=== PATIENT | male | born 1980 | race Two or more races ===

== ENCOUNTER 2020-07-27 19:53 | Emergency (ER) | payer MEDICARE, SELFPAY ==
--- NOTE | 2020-07-27 | XR_ITS ---
EXAMINATION: XR CHEST CLINICAL INFORMATION: Shortness of breath. COVID exposure COMPARISON: 02/10/2012 TECHNIQUE: Frontal view of the chest was obtained. FINDINGS: Diffuse interstitial prominence. No focal consolidation or mass. Cardiac silhouette is enlarged, likely accentuated by AP portable technique XR/XR chest 1V IMPRESSION: There is diffuse interstitial prominence, new from prior study. This is nonspecific but viral pneumonitis could give this appearance.
[2020-07-27 20:06] VITALS: BP 181/98; PULSE 73; RESP 14; TEMP 37.1; O2SAT 100; BMI 35.7
--- NOTE | 2020-07-27 20:23 | ED_ITS ---
HPI - URI/Sore Throat General Chief Complaint: Dyspnea Stated Complaint: FLU LIKE Time Seen by Provider: 07/27/20 20:18 Source: patient Mode of arrival: ambulatory Limitations: no limitations History of Present Illness HPI Narrative: 40-year-old male with past medical history of anxiety, hypertension, anxiety, and obesity presents with upper respiratory symptoms consistent with COVID-19. He has had several COVID-19 positive contacts. Patient is requesting COVID-19 testing at this time. MD elicited complaint: cough, sore throat, nasal congestion and sinus pain Onset (ago): day(s) (3) Consistency: constant Severity: moderate Description of mucous: clear and watery Able to tolerate fluids by mouth: Yes Relieving factors: nothing Context: sick contacts Associated symptoms: headache, rhinorrhea, nasal congestion, sore throat and cough Treatments prior to arrival: none Related Data Previous Rx's Medication Instructions Recorded azithromycin 250 mg PO DAILY 4 Days #4 tab 07/27/20 dexamethasone 6 mg PO DAILY 9 Days #9 tab 07/27/20 Allergies Allergy/AdvReac Type Severity Reaction Status Date / Time aspirin [ASPIRIN] Allergy Unknown ITCHY, Verified 07/27/20 20:08 itchy/HIVES Review of Systems Review of Systems: Constitutional: positive Fever, positive Chills, positive fatigue, positive Malaise ENT/Mouth: positive sore throat, positive runny nose Eyes: No Discharge Cardiovascular: No Chest Pain, No SOB Respiratory: No Cough, No Sputum, No Wheezing, No Smoke Exposure, No Dyspnea Gastrointestinal: No Nausea, No Vomiting, No Diarrhea Genitourinary: no irregular bleeding, No Dysuria, No Urinary Frequency, No Hematuria, No Urinary Incontinence, No Urgency, No Flank Pain, Musculoskeletal: positive Myalgia Skin: No rash Neuro: No Headache Yes all other systems are reviewed and are negative PMFSH Past Medical History Attestation statement: The following information was validated with the patient. Medical History (Updated 07/27/20 @ 22:22 by Rhona Aguiar NP) Anxiety Asthma HTN (hypertension) Seizure Social History Social History Alcohol intake: never Smoking Status: Unknown if ever smoked Use of substances other than those prescribed or required for medical reasons: No Advance Directives: No Advance Directives Information Provided: Yes Physical Exam Vital Signs: Vital Signs: Last Vital Signs Temp 98.7 F 07/27/20 20:06 Pulse 73 07/27/20 20:06 Resp 14 07/27/20 20:06 BP 181/98 H 07/27/20 20:06 Pulse Ox 100 07/27/20 20:06 Body Mass Index 35.7 Appearance: Alert. Oriented X3. Mild distress. Eyes: Pupils equal, round and reactive to light. ENT: Pharynx normal. Neck: Normal inspection. Neck supple. CVS: Normal heart rate and rhythm. Pulses normal. Respiratory: No respiratory distress. Breath sounds normal. Abdomen: Soft and nontender. Skin: Skin warm and dry. Normal skin color. Normal skin turgor. Extremities: No lower extremity edema. Neuro: No motor deficit. No sensory deficit. Course Course Course Narrative: 40-year-old male presents with positive COVID-19 contacts history of asthma and hypertension. Plan of care is for COVID-19 testing and x- ray. Patient would like to wait for his results. Patient's COVID test is negative however x-ray is indicative of COVID-19 infection. Detailed description of results given to patient, he does understand that he must treat himself his COVID-19 positive. As he does have asthma, obesity, hypertension and seizure disorder we will order dexamethasone, azithromycin to prevent bacterial, and albuterol. Patient verbalized understanding of and agrees to plan of care discharge home. MDM - URI/Sore Throat MDM Narrative Medical decision making narrative: COVID-19 Differential Diagnosis Differential diagnosis: Likely upper respiratory infection, sinusitis, viral infection and influenza Medical Records Attestation: I reviewed the patient's medical records. Lab Data Attestation: I reviewed the patient's lab results. Labs: Lab Results 07/27/20 Range/Units 20:21 Coronavirus (PCR) NEGATIVE (Negative) Influenza Type A (PCR) NEGATIVE (Negative) Influenza Type B (PCR) NEGATIVE (Negative) RSV RNA Qual (PCR) NEGATIVE (Negative) Imaging Data Chest x-ray: Attestation: I personally reviewed and interpreted this imaging study as follows: Radiologist's impression: EXAMINATION: XR CHEST CLINICAL INFORMATION: Shortness of breath. COVID exposure COMPARISON: 02/10/2012 TECHNIQUE: Frontal view of the chest was obtained. FINDINGS: Diffuse interstitial prominence. No focal consolidation or mass. Cardiac silhouette is enlarged, likely accentuated by AP portable technique XR/XR chest 1V IMPRESSION: There is diffuse interstitial prominence, new from prior study. This is nonspecific but viral pneumonitis could give this appearance. Discharge Plan Discharge Clinical Impression: COVID-19 Patient Disposition: Home, Self-Care Instructions: Upper Respiratory Infection (ED), Viral Syndrome (ED), COVID-19 (Coronavirus Disease 2019) (ED) Additional Instructions: You were evaluated for symptoms consistent COVID-19. Your test for COVID, influenza and RSV are negative. That being said, your chest x-ray indicates a positive COVID-19 chest. You have had multiple COVID-19 positive contacts and you are symptomatic. Please consider yourself positive for COVID-19. You were evaluated for symptoms consistent with COVID-19 and or COVID-19 positive exposure. Please maintain social isolation per State and Federal guidelines. Is your responsibility to maintain these guidelines. Please use dexamethasone daily for the next 9 days. He received 1st dose in the emergency department. Please take azithromycin 250 mg for the next 4 days. You received your 1st dose in the emergency department. Please drink plenty of fluids. Thank you for choosing this emergency department for evaluation. Please follow-up with primary care physician as needed. Return to the emergency department for any new, concerning, or worsening symptoms. Prescriptions: New dexamethasone 6 mg tablet 6 mg PO DAILY 9 Days Qty: 9 RF: 0 azithromycin 250 mg tablet 250 mg PO DAILY 4 Days Qty: 4 RF: 0 Interventions: ED Discharge Assessment Last Done: 07/27/20 22:48 Discharge Date/Time: 07/27/20 22:49
[2020-07-27 22:00] LABS: Influenza A PCR NEGATIVE (Negative); Influenza B PCR NEGATIVE (Negative); Resp Syncy Virus RNA Qual PCR NEGATIVE (Negative); SARS COV2 PCR INHOUSE NEGATIVE (Negative)
[2020-07-27] MEDS: Azithromycin 500 MG TABLET PO (22:32)
[2020-07-27] MEDS: dexAMETHasone 6 MG TABLET PO (22:32)
[2020-07-27] MEDS: Albuterol Sulfate 90 MCG 8 GM INHALER 2 PUFF INHALE (22:32)
== END 2020-07-27 22:49 | disposition home or self-care (01) ==
PROVIDERS: Emergency Provider Emergency Medicine
DX: J06.9 Acute upper respiratory infection, unspecified (principal); Z20.822 Contact with and (suspected) exposure to COVID-19; I10 Essential (primary) hypertension; J45.909 Unspecified asthma, uncomplicated
CPT/HCPCS: 0241U; 36415; 71045; 87071; 87880; 99284; J8540

== ENCOUNTER 2021-06-14 07:40 | Emergency (ER) | payer MEDICARE, SELFPAY ==
[2021-06-14 08:20] VITALS: BP 141/93; PULSE 70; RESP 18; TEMP 36.7; O2SAT 98; BMI 31.9
--- NOTE | 2021-06-14 08:24 | ED_ITS ---
HPI - Ear Problem General Stated complaint: ear pain Time Seen by Provider: 06/14/21 08:24 Source: patient Mode of arrival: ambulatory Limitations: no limitations History of Present Illness HPI Narrative: Patient with ear pain after cleaning ear. Complaint: ear pain Location: right ear Duration: constant Severity: mild Relieving factors: nothing Exacerbating factors: nothing Treatment prior to arrival: none Related Data Previous Rx's Medication Instructions Recorded azithromycin 250 mg tablet 250 mg PO DAILY 4 Days #4 tab 07/27/20 dexamethasone 6 mg tablet 6 mg PO DAILY 9 Days #9 tab 07/27/20 fluticasone propionate 50 1 spray INTRANASAL DAILY #16 g 06/14/21 mcg/actuation nasal spray,suspension (Flonase Allergy Relief) Allergies Allergy/AdvReac Type Severity Reaction Status Date / Time aspirin [ASPIRIN] Allergy Unknown ITCHY, Verified 07/27/20 20:08 itchy/HIVES Review of Systems Constitutional: Constitutional: Reports no additional constitutional complaints Eyes: Eyes: Reports no additional eye complaints ENT: Denies dizziness Cardiovascular: Cardiovascular: Reports no additional cardiovascular complaints Respiratory: Respiratory: Reports as per HPI Gastrointestinal: Gastrointestinal: Reports no additional gastrointestinal complaints Musculoskeletal: Musculoskeletal: Reports no additional musculoskeletal co mplaints Integumentary/Breasts: Skin/Breast: Denies rash Neurologic: Reports system reviewed and no additional complaints, except as documented, Denies dizziness and Denies Sensory deficit (Neuro) Psychiatric: Psychiatric: Denies anxiety PMFSH Past Medical History Medical History Anxiety Asthma HTN (hypertension) Seizure Social History Social History Alcohol intake: never Advance Directives: No Advance Directives Information Provided: No Physical Exam Const: General: healthy appearing Nutritional Appearance: average body habitus Orientation/consciousness: oriented to person and patient oriented x3 Limitations: no limitations HENMT: Other: left TM is normal, right TM with effusion, no erthema Head: Yes normal to inspection General nose exam: Normal external nose present Mouth: Normal oral and palatal mucosa present and oropharynx normal Throat: Yes posterior oropharynx normal Eyes: General: appearance normal, both eyes and all related structures Neck: Other: supple Neck: Yes normal visual inspection Chest: Chest palpation & inspection: normal inspection of the chest Resp: Auscultation: clear to auscultation bilaterally Cardio: Jugular venous distension: no JVD Rate: regular rate Rhythm: regular rhythm Heart sounds: S1 normal heart sound present and S2 normal heart sound present GI: Inspection: Yes normal to inspection Palpation (GI): Soft to palpation, nontender and No hepatosplenomegaly present Auscultation: normal bowel sounds : General: Yes no CVA tenderness Back/Spine/Pelvis: Back: no CVA tenderness Skin: General skin exam: no rashes or lesions noted Neuro: General: oriented to person and patient oriented x3 Cranial nerves: Yes CN's II-XII intact bilaterally Motor exam (neuro): 5/5 motor strength present throughout Sensory Exam: No Sensory deficit (Neuro) Extrem: General: Yes normal to inspection Psych: Appearance: grossly normal Course Course Course Narrative: Impression is right TM effusion. Patient with nasal congestion will place on flonase. Discharge Plan Discharge Clinical Impression: Abnormal tympanic membrane of right ear Patient Disposition: Home, Self-Care Prescriptions: New fluticasone propionate [Flonase Allergy Relief] 50 mcg/actuation spray,suspension 1 spray intranasal DAILY Qty: 16 RF: 0 No Action dexamethasone 6 mg tablet 6 mg PO DAILY 9 Days Qty: 9 RF: 0 azithromycin 250 mg tablet 250 mg PO DAILY 4 Days Qty: 4 RF: 0
== END 2021-06-14 08:50 | disposition home or self-care (01) ==
PROVIDERS: Emergency Provider Emergency Medicine; PCP Internal Medicine
DX: H73.91 Unspecified disorder of tympanic membrane, right ear (principal); I10 Essential (primary) hypertension; J45.909 Unspecified asthma, uncomplicated
CPT/HCPCS: 99283

== ENCOUNTER 2022-10-20 10:13 | Emergency (ER) | payer MEDICARE, SELFPAY ==
[2022-10-20 10:16] VITALS: BP 146/94; PULSE 80; RESP 18; TEMP 36.8; O2SAT 98; BMI 38.0
--- NOTE | 2022-10-20 11:10 | ED_ITS ---
HPI - General Adult General Chief complaint: General Medical Stated complaint: muscle spasms Time Seen by Provider: 10/20/22 11:08 Source: patient Mode of arrival: ambulatory Limitations: no limitations History of Present Illness HPI narrative: Patient is a 42 year old assigned male at with a history of depression presenting to the emergency department today with right sided neck and shoulder muscle spasm after laying in bed for 4-5 days due to feeling depressed. Patient states that he has tried Tylenol and massage with minimal relieve. Patient denies any dizziness, lightheadedness, abdominal pain, nausea, vomiting, fever, chills, blurry vision, double vision, loss of vision, chest pain, difficulty breathing, shortness of breath, back pain, night sweats, pain with urination, increased urinary frequency, increased urinary urgency, blood in his urine or stool, syncope or a near syncopal episode, recent trauma or falls, bowel incontinence, bladder incontinence, bowel retention, bladder retention, or any other complaints at this time. Onset (ago): day(s) (4) Location: neck and left Severity scale (1-10): 2 Quality: aching Pain Consistency: constant Relieving factors: immobilization Exacerbating factors: movement Associated symptoms: denies other symptoms Treatments prior to arrival: other (Tylenol) Related Data Previous Rx's Medication Instructions Recorded azithromycin 250 mg tablet 250 mg PO DAILY 4 days #4 tabs 07/27/20 dexamethasone 6 mg tablet 6 mg PO DAILY 9 days #9 tabs 07/27/20 fluticasone propionate 50 1 spray intranasal DAILY #16 grams 06/14/21 mcg/actuation nasal spray,suspension (Flonase Allergy Relief) cyclobenzaprine 5 mg tablet 5 mg PO TID PRN muscle spasm 7 10/20/22 days #21 tabs Allergies Allergy/AdvReac Type Severity Reaction Status Date / Time aspirin [ASPIRIN] Allergy Unknown ITCHY, Verified 07/27/20 20:08 itchy/HIVES Review of Systems Review of Systems: Yes all other systems are reviewed and are negative Constitutional: Constitutional: Reports as per HPI Eyes: Eyes: Reports no additional eye complaints ENT: Reports system reviewed and no additional complaints, except as documented, Denies neck mass and Reports neck pain Cardiovascular: Cardiovascular: Reports no additional cardiovascular complaints, Denies dyspnea on exertion and Denies orthopnea Respiratory: Respiratory: Reports no additional respiratory complaints and Denies dyspnea on exertion Gastrointestinal: Gastrointestinal: Reports no additional gastrointestinal complaints Genitourinary: Genitourinary: Reports no additional male genitourinary complaints, Denies hematuria, Denies oliguria, Denies difficulty urinating, Den ies dysuria, Denies urinary frequency, Denies urinary hesitancy, Denies urinary incontinence and Denies urinary urgency Musculoskeletal: Musculoskeletal: Reports as per HPI and Reports neck pain Neurologic: Reports system reviewed and no additional complaints, except as documented Psychiatric: Psychiatric: Reports no additional psychiatric complaints Endocrine: Endocrine: Reports no additional endocrine complaints Hematologic/Lymphatic: Hematologic/Lymphatic: Reports no additional hematologic/lymphatic complaints Allergic/Immunologic: Allergic/Immunologic: Reports no additional allergic/immunologic complaints [facility] Past Medical History Attestation statement: The following information was validated with the patient. Source: old records reviewed and nursing notes reviewed Medical History Anxiety Asthma HTN (hypertension) Seizure Social History Social History Alcohol intake: never Advance Directives: No Advance Directives Information Provided: No Physical Exam ED Vital Signs: Vital Signs - 24 hr 10/20/22 10:16 Temperature 98.3 F Pulse Rate 80 Respiratory Rate 18 Blood Pressure 146/94 H Pulse Oximetry 98 Oxygen Delivery Method Room Air BMI result Body Mass Index 38.0 Const General: cooperative, healthy appearing and no acute distress Nutritional Appearance: well nourished Orientation/consciousness: oriented to person, oriented to place, oriented to time and patient oriented x3 Limitations: no limitations [facility] Head: Yes normal to inspection Ears: hearing grossly normal bilaterally General nose exam: Normal external nose present Face and sinus: Yes normal facial exam Mouth: Normal oral and palatal mucosa present, no drooling and no muffled voice Eyes General: appearance normal, both eyes and all related structures Alignment and Position: alignment abnormal right exotropia Periorbital: periorbital findings normal Eyelids: Yes eyelids normal Conjunctivae: conjunctivae normal Pupils: Equal, round and reactive pupils present EOM: EOMs intact bilaterally Neck Neck: Yes normal visual inspection and No full ROM (limited lateral ROM due to pain) Chest Chest palpation & inspection: normal inspection of the chest Resp Effort & Inspection: normal respiratory effort and able to speak in complete sentences Auscultation: clear to auscultation bilaterally Cardio Rate: regular rate Rhythm: regular rhythm GI Inspection: Yes normal to inspection General: Yes no CVA tenderness Back/Spine/Pelvis Back: no CVA tenderness Cervical Spine: normal cervical lordosis Thoracic/Lumbar Spine: thoracic and lumbar spine normal to inspection Neuro General: oriented to person, oriented to place, oriented to time and patient oriented x3 Cranial nerves: Yes Equal, round and reactive pupils present Cognition (Neuro): normal cognition Motor exam (neuro): 5/5 motor strength present throughout Sensory Exam: Normal double simultaneous stimulation for sensation Coordination: [id number] test normal Extrem General: Yes normal to inspection, Yes full ROM and Yes capillary refill normal Right upper extremity: normal to inspection, edema, no joint enlargement and shoulder/upper arm Details: abnormal ROM Details: pain with active ROM Details: in ABduction and in extension; ROM limited (Right shoulder limited ROM due to pain) Psych Appearance: grossly normal Mental Status: mental status grossly normal Affect: normal affect Attitude: cooperative Thought process: Normal thought process present Thought content: Normal thought content present Insight: Good insight present (Psych) Medical Decision Making Medical Decision Making MDM Narrative: Patient is a 42 year old assigned male at with a history of depression presenting to the emergency department today with right sided neck pain. Patient's physical exam showed limited neck ROM secondary to pain. Patient adamantly denied any thoughts of harming himself or others. Patient declined any psychiatric services. I explained my physical exam findings to the patient. I answered all questions asked by the patient. Patient received PO Flexeril which he stated helped his symptoms significantly. I stressed the importance of the patient taking his medication as prescribed. I stressed the importance of the patient following up with his primary care provider. I stressed the importance of the patient returning to the emergency department immediately if his symptoms were to worsen or if he were to develop any dizziness, shortness of breath, difficulty breathing, chest pain, blurry vision, loss of vision, nausea, vomiting, abdominal pain, fever, chills, back pain, or any other complaints. Patient verbalized agreement and understanding with this treatment plan and discharge. Differential Diagnosis Differential Diagnoses: The differential diagnosis associated with the presentation includes neck pain, cervical radiculopathy Discharge Plan Discharge Clinical Impression: Cervical radiculopathy, Muscle spasm Patient Disposition: Home, Self-Care Instructions: Cervical Radiculopathy (ED), Muscle Spasm (ED) Additional Instructions: Follow up with your primary care provider. Return to the emergency department immediately if your symptoms worsen or if you develop any dizziness, shortness of breath, difficulty breathing, chest pain, blurry vision, loss of vision, nausea, vomiting, abdominal pain, fever, chills, back pain, or any other complaints. Prescriptions: New cyclobenzaprine 5 mg tablet 5 mg PO TID PRN (Reason: muscle spasm) 7 Days Qty: 21 0RF No Action dexamethasone 6 mg tablet 6 mg PO DAILY 9 Days Qty: 9 0RF azithromycin 250 mg tablet 250 mg PO DAILY 4 Days Qty: 4 0RF fluticasone propionate [Flonase Allergy Relief] 50 mcg/actuation spray,suspens ion 1 spray intranasal DAILY Qty: 16 0RF Rx Instructions: administer into each nostril Referrals: Joyce Markham FNP [Primary Care Provider] - Print Language: Kiswahili
[2022-10-20] MEDS: Cyclobenzaprine HCl 5 MG TABLET PO (11:54)
== END 2022-10-20 11:59 | disposition home or self-care (01) ==
PROVIDERS: Emergency Provider Emergency Medicine; PCP Nurse Practitioner Family
DX: M54.12 Radiculopathy, cervical region (principal); M62.838 Other muscle spasm
CPT/HCPCS: 99283

== ENCOUNTER 2022-11-24 08:50 | Outpatient (REF) | payer OTHER, SELFPAY ==
[2022-11-24 09:06] LABS: MANUAL DIFF FLAG NO
[2022-11-24 09:28] LABS: Basophils Absolute Auto 0.1 X10*3/uL (0.0-0.2); Basophils Percent Auto 0.7 % (0-2); Eosinophils Absolute Auto 0.3 X10*3/uL (0.0-0.4); Eosinophils Percent Auto 4.1 % (0-4); Hematocrit 43.8 % (42.0-52.0); Hemoglobin 14.5 g/dl (14.0-18.0); Imm Gran Abs Auto 0.02 X10*3/uL (0.00-0.03); Imm Gran Pct Auto 0.3 % (0.0-0.4); Lymphocytes Percent Auto 29.5 % (20-40); Mean Corpuscular HGB Conc 33.1 g/dl (31.0-36.0); Mean Corpuscular Hemoglobin 26.2 pg (27.0-33.0); Mean Corpuscular Volume 79.2 fL (80.0-98.0); Mean Platelet Volume 9.7 fL (9.4-12.4); Monocytes Absolute Auto 0.6 X10*3/uL (0.1-1.2); Monocytes Percent Auto 8.8 % (2-11); Neutrophils Absolute Auto 3.9 x10*3/uL (2.0-8.3); Neutrophils Percent Auto 56.6 % (45-73); Platelet Count 252 X10*3/uL (160-400); Red Blood Count 5.53 X10*6/uL (4.60-5.80); Red Cell Distribution Width 12.9 % (11.0-16.0); White Blood Count 6.9 X10*3/uL (4.8-10.8)
[2022-11-24 10:06] LABS: Alanine Aminotransferase 39 U/L (0-40); Albumin Level 4.3 g/dL (3.5-5.0); Alkaline Phosphatase 95 U/L (39-117); Anion Gap 10 (12-20); Aspartate Amino Transferase 22 U/L (5-37); Bilirubin Total 0.4 mg/dL (0.0-1.0); Blood Urea Nitrogen 16 mg/dL (9-16); Calcium 8.8 mg/dL (8.4-10.2); Carbon Dioxide 27 mmol/L (22-29); Chloride 100 mmol/L (96-108); Cholesterol 202 mg/dL; Estimated Glomerular Filt Rate > 60; Glucose Fasting 305 mg/dL (60-99); HDL Cholesterol 35 mg/dL; LDL Cholesterol Calculated 101 mg/dl; Potassium 4.3 mmol/L (3.3-5.1); Sodium 133 mmol/L (135-145); Total Protein 7.2 g/dL (6.5-8.0); Triglycerides 333 mg/dL
[2022-11-24 10:35] LABS: Folate 7.9 ng/mL (> or = 4.0); TSH reflex Free T4 1.42 uIU/mL (0.32-4.0); Vitamin B12 999 pg/mL (200-900); Vitamin D 25-OH Total 27.6 ng/mL (>30)
== END 2022-11-24 08:51 | disposition home or self-care (01) ==
LOC: HO.LAB 08:50
PROVIDERS: Visit Provider Nurse Practitioner Family
DX: F32.A Depression, unspecified (principal); I10 Essential (primary) hypertension; E87.1 Hypo-osmolality and hyponatremia; E55.9 Vitamin D deficiency, unspecified; R73.01 Impaired fasting glucose
CPT/HCPCS: 36415; 80053; 80061; 82306; 82607; 82746; 84443; 85025

== ENCOUNTER → 2022-12-18 07:20 | Outpatient (BNVA) | payer OTHER, SELFPAY | PROVIDERS: PCP Nurse Practitioner Family; Referring Provider Nurse Practitioner Family; Visit Provider Physician Assistant | DX: K92.1 Melena (principal); K59.09 Other constipation; R12 Heartburn; R14.0 Abdominal distension (gaseous) | CPT/HCPCS: 99202 ==

== ENCOUNTER 2022-12-18 09:36 | Outpatient (REF) | payer OTHER, SELFPAY ==
[2022-12-19 12:26] LABS: H Pylori Breath Test Positive (Negative)
== END 2022-12-18 09:37 | disposition home or self-care (01) ==
LOC: HO.LNP 09:36
PROVIDERS: Visit Provider Physician Assistant
DX: A04.8 Other specified bacterial intestinal infections (principal)
CPT/HCPCS: 83013

== ENCOUNTER 2023-01-20 16:02 | Outpatient (AMB) | payer MEDICARE, SELFPAY ==
[2023-01-20 16:04] VITALS: BP 140/98; PULSE 84; O2SAT 98; BMI 37.2
--- NOTE | 2023-01-20 16:04 | MHC.PC.OV ---
Vital Signs 01/20/23 16:04 01/20/23 16:46 Height 5 ft 8 in Weight 245 lb BMI 37.2 BP 140/98 H 144/96 H Blood Pressure Location Lt brachial Lt brachial Position Sitting Sitting Pulse 84 Pulse Source Pulse Oximeter Temp Source Skin Pulse Oximetry (%) 98 Oxygen Delivery Method Room Air Intake Visit Reasons: Annual Exam Intake Note: Patient is here today for a physical. Invisible Braces Orthodontist Required: No Allergies aspirin [ASPIRIN] Allergy (Unknown, Verified 01/20/23 16:28) ITCHY, itchy/HIVES Medication List - Last Reconciled 01/20/23 by LUCY Fontanez amoxicillin 500 mg PO QID 14 days amoxicillin 250 mg PO QID 14 days bisacodyl (Dulcolax (bisacodyl)) 20 mg (4 x 5 mg) PO ONCE 1 day buspirone 0 mg PO DAILY cholecalciferol (vitamin D3) 25 mcg PO DAILY clonazepam 0.5 mg PO BID PRN clonidine HCl 0.1 mg PO BEDTIME docusate sodium (Colace) 200 mg (2 x 100 mg) PO BEDTIME esomeprazole magnesium (Nexium) 40 mg PO TID 14 days hydrocortisone 2.5% (Proctosol HC) 1 appl [place] BEDTIME PRN methylcellulose (laxative) (Citrucel) 500 mg PO BID omeprazole 20 mg PO DAILY polyethylene glycol 3350 (Miralax) 238 grams PO ONCE 1 day polyethylene glycol 3350 (Miralax) 17 grams PO DAILY 30 days sertraline 200 mg PO BEDTIME simethicone (Gas Relief (simethicone)) 125 mg PO TID-QID PRN Tobacco use date assessed: 01/20/23 Dental Screening Dental Screen Date: 01/20/23 Did you have a dental visit in the last 12 months?: Yes Did you have a dental problem in the last 6 months where you did not have access to dental care?: No Was dental information given to patient?: Patient has dentist HPI Annual Exam HPI Details Patient is a 42-year-old male who presents today for physical exam. Medical history significant for asthma, hypertension, depression and anxiety-followed by Psychiatry and therapist at [facility], seizures-reports last seizure 1.5 years ago - was on medication in the past-was seen by [facility] in the past - has upcoming appointment with [facility].? Patient was seen by [facility] tested positive for H pylori-currently on treatment - will be having upper endoscopy and colonoscopy. He reports normal eye exam 01/2023. Patient reports that couple months ago he was in the Gym and he felt dizzy with small pinch in his chest which resolved, he does have order for EKG, patient was encouraged to complete his EKG. He denies shortness of breath or chest pain in the office today. In addition, patient reports abdominal lump with intermittent pain. Recent blood work results reviewed with the patient. ? PFSH Medical History Anxiety Asthma COVID-19 Encounter to establish care HTN (hypertension) Seizure Surgical History No pertinent past surgical history Family History Maternal Grandfather Prostate cancer Colon cancer Father Seizures History of heart artery stent Mother Diabetes Hypertension Social History Alcohol intake: never Patient Tobacco Use Status: Former Tobacco user Years Smoked: 10 yrs, quit 2020 service: No Current occupational status: unemployed Cognitive needs: No Hearing needs: No Vision needs: No Questionnaire PHQ-9 Over the last 2 weeks, how often have you been bothered by any of the following problems? 1. Little interest or pleasure in doing things: several days 2. Feeling down, depressed, or hopeless: more than half the days 3. Trouble falling or staying asleep, or sleeping too much: nearly every day 4. Feeling tired or having little energy: several days 5. Poor appetite or overeating: nearly every day 6. Feeling bad about yourself - or that you are a failure or have let yourself or your family down: more than half the days 7. Trouble concentrating on things, such as reading the newspaper or watching television: nearly every day 8. Moving or speaking so slowly that other people could have noticed. Or the opposite - being so fidgety or restless that you have been moving around a lot more than usual: more than half the days 9. Thoughts that you would be better off or of hurting yourself in some way: not at all Total score: 17 Depression Screening Interpretation: Positive Depression Screening Follow-up: In treatment 55021 - PHQ-9 Billing: Yes Source: Developed by Drs. Zac Cao, Caprice Mccord, Max Fletcher and colleagues, with an educational timbo from [employer]. Thrive Questionnaire Date Thrive assessed: 11/20/22 AUDIT C Alcohol Use Questionnaire (AUDIT-C) 1. How often do you have a drink containing alcohol?: Never 3. How often do you have six or more drinks on one occasion?: Never Total Score: 0 Score Reviewed/Action Taken: No MOOK-7 AMB Questionnaire MOOK-7 Date MOOK - 7 assessed: 01/20/23 Feeling nervous, anxious, or on edge: 1 = Several days Not being able to stop or control worryin = Several days Worrying too much about different things: 1 = Several days Trouble relaxin = Several days Being so restless that it is hard to sit still: 1 = Several days Becoming easily annoyed or irritable: 1 = Several days Feeling afraid as if something awful might happen: 1 = Several days Total MOOK-7 score (0-4 normal; 5-9 mild; 10-14 moderate; 15-21 severe): 7 Source: Developed by Drs. Zac Cao, Caprice Mccord, Max Fletcher and colleagues, with an educational timbo from [employer]. MOOK-7 Assessment Billing MOOK-7 Assessment Tool: MOOK-7 Assessment 92173 Review of Systems Const Denies body aches, Denies chills, Denies fever(s) and Denies headache(s) Eyes Denies change in vision ENT Denies dizziness, Denies otalgia, Denies headache(s), Denies nasal discharge, Denies sinus pain and Denies sore throat Card Reports as per HPI, Denies edema, Denies lightheadedness and Denies dyspnea Resp Denies cough and Denies dyspnea GI Reports bloating, Denies constipation, Denies diarrhea, Denies nausea and Denies vomiting Denies hematuria, Denies difficulty urinating and Denies dysuria Musc Denies myalgias Skin/Breast Reports as per HPI, Denies lesions and Denies rash Neuro Denies dizziness and Denies headache(s) Physical exam (Primary Care) Vital Signs: Last Vital Signs Pulse 84 01/20/23 16:04 BP 144/96 H 01/20/23 16:46 Pulse Ox 98 01/20/23 16:04 Oxygen Delivery Method Room Air 01/20/23 16:04 BMI result Body Mass Index 37.2 Tobacco/Smoking Status: Tobacco use Status Tobacco use date assessed 01/20/23 01/20/23 16:06 Patient Tobacco Use Status Former Tobacco user 01/20/23 16:06 PHQ-9: PHQ-9 Score PHQ-9: Total score 18 01/20/23 16:33 Depression Screening Interpretation: Positive Depression Screening Follow-up: In treatment Thrive Assessment: Date of Thrive Assessment Date Thrive assessed 11/20/22 01/20/23 16:06 Const General: cooperative and no acute distress Orientation/consciousness: patient oriented x3 HENMT Head: Yes normocephalic and Yes atraumatic Ears: TM's normal bilaterally Face and sinus: Yes sinuses nontender Mouth: oropharynx normal and moist mucous membranes Throat: Yes posterior oropharynx normal Eyes General: appearance normal, both eyes and all related structures Pupils: Equal, round and reactive pupils present EOM: EOMs intact bilaterally Neck Neck: Yes normal visual inspection, Yes full ROM and Yes no lymphadenopathy Thyroid: Thyroid normal Resp Effort & Inspection: normal respiratory effort and able to speak in complete sentences Auscultation: clear to auscultation bilaterally, no crackles, no rales, no rhonchi and no wheezes Cardio Rate: regular rate Rhythm: regular rhythm Heart sounds: S1 normal heart sound present, S2 normal heart sound present and no murmurs GI Palpation (GI): Soft to palpation, not firm, Tenderness to palpation present (GI) in the epigastrum; with no rebound tenderness, no guarding, not rigid and no hepatosplenomegaly Auscultation: normal bowel sounds General: No CVA tenderness Back/Spine/Pelvis Back: No CVA tenderness Skin General skin exam: no rashes or lesions noted Full body images: 1. Mid abdomen nontender lump noted about 10cm Neuro General: patient oriented x3 Cranial nerves: Yes Equal, round and reactive pupils present Gait exam (Neuro): Normal gait present Extrem General: Yes full ROM and No edema Assessment and Plan Assessment & Plan (1) Intermittent chest pain: Code(s): R07.9 - Chest pain, unspecified Plan: Patient was encouraged to complete his EKG, denies any more chest pains or difficulty breathing Signs and symptoms reviewed when to notify provider or go to the emergency department Patient agreed with the plan (2) Seizure: Code(s): R56.9 - Unspecified convulsions Plan: Patient has an upcoming appointment with [facility], patient reports last seizure 1.5 yrs ago, was on medication in the past stopped taking it (3) Anxiety: Code(s): F41.9 - Anxiety disorder, unspecified Plan: Continue to follow-up with psychiatry and therapist at [facility] - manage mental health medications (4) Depression: Code(s): F32.A - Depression, unspecified Qualifiers: Depression Type: other depression Qualified Code(s): F32.89 - Other specified depressive episodes Plan: Continue to follow-up with psychiatry and therapist at [facility] - manage mental health medications (5) HTN (hypertension): Code(s): I10 - Essential (primary) hypertension Plan: Goal BP equal or less than 140/90 Blood pressure is elevated for the past couple times, start lisinopril 5 mg daily-possible adverse reactions reviewed with the patient and when to notify provider Low-sodium diet and weight loss Patient was encouraged to monitor his blood pressures at home Follow-up with nurse in 2 weeks for BP recheck (6) Asthma: Code(s): J45.909 - Unspecified asthma, uncomplicated Plan: Stable Provided patient with albuterol inhaler p.r.n. (7) Obesity (BMI 30-39.9): Code(s): E66.9 - Obesity, unspecified Plan: Healthy food choices and exercise as tolerated (8) Abdominal wall lump: Code(s): R22.2 - Localized swelling, mass and lump, trunk Plan: Mid abdomen nontender lump noted about 10cm Ultrasound ordered to rule out hernia (9) Elevated fasting glucose: Code(s): R73.01 - Impaired fasting glucose Plan: Fasting glucose 305 11/2022, patient was encouraged to complete A1c that was ordered (10) Hypertriglyceridemia: Code(s): E78.1 - Pure hyperglyceridemia Plan: Triglycerides 333 11/2022, goal less than 150 Encouraged low-cholesterol diet, low-carbohydrate diet and weight loss Continue to monitor (11) Adult general medical exam: Code(s): Z00.00 - Encounter for general adult medical examination without abnormal findings Plan: Repeat in 1 year Orders: Orders US extremity nonvascular Today R22.2 - Localized swelling, mass and lump, trunk Medications: New lisinopril 5 mg PO DAILY 30 tabs 3RF I10 - Essential (primary) hypertension albuterol sulfate 90 mcg/actuation (Ventolin HFA) 2 puffs inhalation Q4-6H PRN 8.5 grams 0RF shortness of breath or wheezing J45.909 - Unspecified asthma, uncomplicated Coding Level of Care Code Est Pt Prev Care 40-64y(15864) Diagnoses Intermittent chest pain R07.9 Seizure R56.9 Anxiety F41.9 Depression F32.89 Depression Type: other depression HTN (hypertension) I10 Asthma J45.909 Obesity (BMI 30-39.9) E66.9 Abdominal wall lump R22.2 Elevated fasting glucose R73.01 Hypertriglyceridemia E78.1 Adult general medical exam Z00.00 Additional Codes MOOK-7 Assessment Billing - MOOK-7 Assessment Tool: MOOK-7 Assessment 20988 ([id number])
[2023-01-20 16:46] VITALS: BP 144/96
== END 2023-01-20 17:03 | disposition home or self-care (01) ==
PROVIDERS: Visit Provider Nurse Practitioner Family
DX: Z00.00 Encounter for general adult medical examination without abnormal findings (principal); F41.9 Anxiety disorder, unspecified; I10 Essential (primary) hypertension; J45.909 Unspecified asthma, uncomplicated; R07.9 Chest pain, unspecified; F32.89 Other specified depressive episodes; R56.9 Unspecified convulsions; E66.9 Obesity, unspecified; R22.2 Localized swelling, mass and lump, trunk; R73.01 Impaired fasting glucose; E78.1 Pure hyperglyceridemia
CPT/HCPCS: 99396

== ENCOUNTER 2023-01-20 17:06 | Outpatient (REF) | payer OTHER, SELFPAY ==
[2023-01-20 18:40] LABS: Cholesterol 206 mg/dL; HDL Cholesterol 38 mg/dL; LDL Cholesterol Calculated 104 mg/dl; Triglycerides 321 mg/dL
== END 2023-01-20 17:07 | disposition home or self-care (01) ==
LOC: HO.LAB 17:06
PROVIDERS: PCP Nurse Practitioner Family; Visit Provider Nurse Practitioner Family
DX: E78.1 Pure hyperglyceridemia (principal); E55.9 Vitamin D deficiency, unspecified
CPT/HCPCS: 36415; 80061; 82306

== ENCOUNTER 2023-01-29 12:45 | Outpatient (AMB) | payer OTHER, SELFPAY ==
--- NOTE | 2023-01-29 12:48 | MHC.OFFVIS ---
Intake Vital Signs 01/29/23 12:50 Height 5 ft 8 in Weight 244 lb 11.41 oz BMI 37.2 BP 129/86 Blood Pressure Location Lt brachial Position Sitting Pulse 67 Intake Visit Reasons: 6 week fu Intake Note: Nilam presents in the office as a 6 week follow up. CC: He states that he has a big lump in his epigastric region. When he lays down you can see it. PCP seen last week. He was ordered an US and waiting for it to be scheduled. Food Beverage Supervisor Required: No Allergies aspirin [ASPIRIN] Allergy (Unknown, Verified 01/29/23 12:51) ITCHY, itchy/HIVES Medication List - Last Reconciled 02/03/23 by Rosalinda Gayle PA-C albuterol sulfate 90 mcg/actuation (Ventolin HFA) 2 puffs inhalation Q4-6H PRN buspirone 0 mg PO DAILY cholecalciferol (vitamin D3) 25 mcg PO DAILY clonazepam 0.5 mg PO BID PRN clonidine HCl 0.1 mg PO BEDTIME docusate sodium (Colace) 200 mg (2 x 100 mg) PO BEDTIME esomeprazole magnesium (Nexium) 40 mg PO TID 14 days hydrocortisone 2.5% (Proctosol HC) 1 appl [place] BEDTIME PRN lisinopril 5 mg PO DAILY methylcellulose (laxative) (Citrucel) 500 mg PO BID polyethylene glycol 3350 (Miralax) 17 grams PO DAILY 30 days sertraline 200 mg PO BEDTIME simethicone (Gas Relief (simethicone)) 125 mg PO TID-QID PRN HPI HPI Comments History of Present Illness Details A 42-year-old male with multiple GI complaints follows-H pylori UBT-he was positive treated with antibiotic therapy- completed regimen less bloating-no heartburn or nausea- appetite is good- Using miralax-good response- intermittent non specific low abdominal cramping-no known aggravating factors- no rectal bleeding No fever or chills Previously-he was scheduled for EGD colo-awaiting [facility] Medical History Anxiety Asthma COVID-19 Encounter to establish care HTN (hypertension) Seizure Surgical History No pertinent past surgical history Family History Maternal Grandfather Prostate cancer Colon cancer Father Seizures History of heart artery stent Mother Diabetes Hypertension Social History Alcohol intake: never Patient Tobacco Use Status: Former Tobacco user Years Smoked: 10 yrs, quit 2020 service: No Current occupational status: unemployed Cognitive needs: No Hearing needs: No Vision needs: No Review of Systems Const All systems reviewed & are unremarkable except as noted in HPI and below Card Denies chest pain and Denies dyspnea Resp Denies dyspnea GI Reports abdominal pain, Denies hematochezia and Reports heartburn Physical Exam Vital Signs: Last Vital Signs Pulse 67 01/29/23 12:50 BP 129/86 01/29/23 12:50 BMI result Body Mass Index 37.2 Const General: cooperative, healthy appearing and comfortable Orientation/consciousness: patient oriented x3 Limitations: no limitations Resp Effort & Inspection: normal respiratory effort and able to speak in complete sentences Skin General skin exam: no rashes or lesions noted Neuro General: patient oriented x3 Extrem General: Yes full ROM Psych Appearance: grossly normal and well kempt Mental Status: mental status grossly normal Speech and movement: Normal speech and movement present and Clear speech present Affect: normal affect Attitude: cooperative Thought process: Normal thought process present Thought content: Normal thought content present Insight: Good insight present (Psych) Judgement: Good judgement present (Psych) Assessment & Plan Assessment & Plan (1) Heartburn: Comment: HP UBT- pos tx'd- ck DEWAYNE precautions Code(s): R12 - Heartburn (2) H. pylori infection: Comment: H pylori was positive treated 2 weeks course antibiotics completed Needs DEWAYNE- stool antigen order placed- Code(s): A04.8 - Other specified bacterial intestinal infections (3) Abdominal pain: Comment: improved Cramping prior to BM sched. EGD/ colon U/s- assess GB and for fatty liver-( wt) Continue gasx Code(s): R10.9 - Unspecified abdominal pain Plan Reviewed EGD colonoscopy- previously ordered Schedule for DEWAYNE Orders: Orders H pylori Ag Stool 2 Weeks A04.8 - Other specified bacterial intestinal infections US abdomen comp w elastography 01/29/23 R10.9 - Unspecified abdominal pain Patient Instructions: Very pleasant 42 y/o male - f/u- abdominal pain and gerd- DEWAYNE- scheduled U/S U/s- assess GB and for fatty liver-( wt) Continue gasx call with concerns Coding Level of Care Code Est Pt Level 3 (50707) Diagnoses Heartburn R12 H. pylori infection A04.8 Abdominal pain R10.9 Time Spent (min) 25
[2023-01-29 12:50] VITALS: BP 129/86; PULSE 67; BMI 37.2
== END 2023-01-29 13:14 | disposition home or self-care (01) ==
PROVIDERS: PCP Nurse Practitioner Family; Visit Provider Physician Assistant
DX: R12 Heartburn (principal); A04.8 Other specified bacterial intestinal infections; R10.9 Unspecified abdominal pain
CPT/HCPCS: 99213

== ENCOUNTER → 2023-01-29 12:45 | Outpatient (BNVA) | payer OTHER, SELFPAY | PROVIDERS: PCP Nurse Practitioner Family; Visit Provider Physician Assistant | DX: R12 Heartburn (principal); A04.8 Other specified bacterial intestinal infections; R10.9 Unspecified abdominal pain | CPT/HCPCS: 99212 ==

== ENCOUNTER 2023-02-03 14:07 | Outpatient (REF) | payer OTHER, SELFPAY ==
--- NOTE | ~2023-02-03 | US_ITS ---
EXAMINATION: US ABDOMEN LIMITED CLINICAL INFORMATION: Localized swelling, mass and lump, trunk. Rule out hernia. COMPARISON: None available. TECHNIQUE: Real-time imaging of the midline abdomen. US/US abdomen limited FINDINGS/IMPRESSION: Targeted sonographic evaluation of the mid abdominal wall in the area of the lump. Anterior abdominal rectus muscle diastases with subtle fat outpouching into the abdominal wall but without a clear fascial defect or hernial neck. No organized collection or measurable mass. Correlation with CT or MR could be obtained as clinically indicated.
== END 2023-02-03 14:08 | disposition home or self-care (01) ==
LOC: HO.US 14:07
PROVIDERS: Physician Assistant; PCP Nurse Practitioner Family; Visit Provider Nurse Practitioner Family
DX: R22.2 Localized swelling, mass and lump, trunk (principal); A04.8 Other specified bacterial intestinal infections
CPT/HCPCS: 76705; 87338

== ENCOUNTER 2023-02-12 08:32 | Outpatient (REF) | payer MEDICARE, SELFPAY ==
[2023-02-12 09:18] LABS: Estimated Average Glucose 252 mg/dL; Hemoglobin A1c % 10.4 %
[2023-02-12 09:39] LABS: Anion Gap 16 (12-20); Blood Urea Nitrogen 13 mg/dL (9-16); Calcium 9.3 mg/dL (8.4-10.2); Carbon Dioxide 24 mmol/L (22-29); Chloride 99 mmol/L (96-108); Estimated Glomerular Filt Rate > 60; Glucose Random 293 mg/dL (60-115); Potassium 4.5 mmol/L (3.3-5.1); Sodium 134 mmol/L (135-145)
== END 2023-02-12 08:33 | disposition home or self-care (01) ==
LOC: HO.LAB 08:32
PROVIDERS: PCP Nurse Practitioner Family; Visit Provider Nurse Practitioner Family
DX: E87.1 Hypo-osmolality and hyponatremia (principal); R73.01 Impaired fasting glucose
CPT/HCPCS: 36415; 80048; 83036

== ENCOUNTER 2023-02-26 08:08 | Outpatient (REF) | payer MEDICARE, SELFPAY ==
--- NOTE | ~2023-02-26 | US_ITS ---
EXAMINATION: US COMPLETE ABDOMEN WITH LIVER ELASTOGRAPHY CLINICAL INFORMATION: Abdominal pain. COMPARISON: None available. TECHNIQUE: Real-time imaging of the abdominal viscera. Noninvasive ultrasound liver fibrosis assessment is performed using Dominic ElastPQ point quantification shear wave elastography (2D-SWE) with a C5-2 MHz transducer. Multiple elastography samples are obtained. FINDINGS: PANCREAS: Normal. The visualized pancreatic head and body are normal in appearance. The remainder of the pancreas is obscured from visualization by the overlying bowel gas. ABDOMINAL AORTA: The proximal and distal aortic segments are normal in caliber. The mid segment is obscured by overlapping bowel gas. INFERIOR VENA CAVA: Visualized portions are normal. LIVER: There is hepatomegaly. The liver demonstrates normal contour and generally increased echogenicity, with pericholecystic sparing. No focal lesion or intrahepatic biliary duct dilatation. The right lobe measures 19.0 cm in length. The left lobe measures 11.7 cm in length. Portal flow is towards the liver (hepatopetal). Shear wave liver elastography median stiffness is 1.17 m/s (reference: normal median stiffness is 1.3 m/s or less). IQR/median stiffness to assess sampling precision is 0.07 (reference: good quality data set is IQR/median stiffness of 0.15 or less). GALLBLADDER: Normal. The gallbladder is physiologically distended without evidence of stones, sludge, polyps, wall thickening or pericholecystic fluid. COMMON BILE DUCT: Normal in caliber measuring 0.3 cm in diameter. RIGHT KIDNEY: Normal. No hydronephrosis. No renal calculi or focal parenchymal lesions. The kidney measures 12.0 cm in maximum dimension. LEFT KIDNEY: Normal. No hydronephrosis. No renal calculi or focal parenchymal lesions. The kidney measures 12.3 cm in maximum dimension. SPLEEN: Normal. The spleen measures 11.3 cm in maximum dimension. FREE FLUID: None. US/US abdomen comp w elastography IMPRESSION: 1. There is generalized increase in hepatic echotexture, consistent with fatty infiltration or hepatocellular disease. Please correlate clinically. Characteristic pericholecystic sparing favors fatty infiltration. No focal hepatic mass or intrahepatic biliary dilatation is seen. 2. Liver elastography: Measurements are consistent with a high probability of normal liver stiffness. 3. Technically limited ultrasound examination of the pancreas and abdominal aorta. REFERENCE: Society of Radiologists in Ultrasound Liver Stiffness Thresholds (2020): LIVER STIFFNESS THRESHOLDS: *Liver Stiffness equal or less than 1.3 m/s: High probability of being normal. *Liver Stiffness less than 1.7 m/s: In the absence of other known clinical signs, rules out compensated advanced chronic liver disease. *Liver Stiffness 1.7-2.1 m/s: Suggestive of compensated advanced chronic liver disease but need further test for confirmation. *Liver Stiffness over 2.1 m/s: Rules in compensated advanced chronic liver disease. *Liver Stiffness over 2.4 m/s: Suggestive of clinically significant portal hypertension. QUALITY OF DATA SET: *IQR/Median value equal or less than 0.15 implies a quality data set. *IQR/Median value over 0.15 implies a poor quality data set. SIGNIFICANT CHANGE FROM PRIOR EXAM: Significant change if liver stiffness measurement is 10% or greater from prior exam. OTHER CONSIDERATIONS: The stage of liver fibrosis may be overestimated in the setting of acute hepatitis, liver inflammation, elevated liver function tests, hepatic vascular congestion, obstructive cholestasis, non-fasting state, and infiltrative diseases such as amyloidosis and lymphoma. In some patients with NAFLD, the liver stiffness thresholds for compensated advanced chronic liver disease may be lower. In causes other than viral hepatitis and NAFLD, liver stiffness thresholds are not well established.
== END 2023-02-26 08:09 | disposition home or self-care (01) ==
LOC: HO.US 08:08
PROVIDERS: PCP Nurse Practitioner Family; Visit Provider Physician Assistant
DX: R10.9 Unspecified abdominal pain (principal)
CPT/HCPCS: 76705; 76981

== ENCOUNTER 2023-03-03 09:59 | Outpatient (AMB) | payer OTHER, SELFPAY ==
--- NOTE | 2023-03-03 10:02 | A.OFFVIS_ITS ---
Intake Vital Signs 03/03/23 10:08 Height 5 ft 8 in Weight 237 lb BMI 36.0 BP 138/85 Blood Pressure Location Rt brachial Position Sitting Pulse 86 Intake Visit Reasons: Lump~ Mid abd Intake Note: This patient presents for an assessment for lump on the mid-abdomen. Patient c/o; Onset 2 years ago, reports feeling lump mid-abdomen which causes cramps, reports pain radiating towards RUQ, reports pain, reports bloating. Structural Architect Required: No Accompanied by: Self / Same As Patient Allergies aspirin [ASPIRIN] Allergy (Unknown, Verified 01/29/23 12:51) ITCHY, itchy/HIVES Medication List - Last Reconciled 03/03/23 by Arias Brown MD albuterol sulfate 90 mcg/actuation (Ventolin HFA) 2 puffs inhalation Q4-6H PRN buspirone 0 mg PO DAILY cholecalciferol (vitamin D3) 25 mcg PO DAILY clonazepam 0.5 mg PO BID PRN clonidine HCl 0.1 mg PO BEDTIME docusate sodium (Colace) 200 mg (2 x 100 mg) PO BEDTIME esomeprazole magnesium (Nexium) 40 mg PO TID 14 days hydrocortisone 2.5% (Proctosol HC) 1 appl [place] BEDTIME PRN lisinopril 5 mg PO DAILY metformin ER 500 mg PO BID methylcellulose (laxative) (Citrucel) 500 mg PO BID polyethylene glycol 3350 (Miralax) 17 grams PO DAILY 30 days sertraline 200 mg PO BEDTIME simethicone (Gas Relief (simethicone)) 125 mg PO TID-QID PRN HPI HPI Comments History of Present Illness Details Patient presents with a plethora of complaints but here specifically for mid abdominal pain and swelling. Patient has a plethora of medical problems. He has a history of constipation as well as lower GI bleed. He has been followed by GI for this and is scheduled for colonoscopy in March. He does occasional heavy lifting. He is tolerating his diet. Chart was reviewed and patient evaluated COUNTS INCLUDE 234 BEDS AT THE [facility] Medical History (Updated 02/24/23 @ 13:59 by LUCY Fontanez) Anxiety Asthma COVID-19 Encounter to establish care HTN (hypertension) Seizure Surgical History History of eye surgery History of tonsillectomy Family History Maternal Grandfather Prostate cancer Colon cancer Father Seizures History of heart artery stent Mother Diabetes Hypertension Social History Alcohol intake: never Patient Tobacco Use Status: Former Tobacco user Years Smoked: 10 yrs, quit 2020 service: No Current occupational status: unemployed Cognitive needs: No Hearing needs: No Vision needs: No Physical Exam Vital Signs: Last Vital Signs Pulse 86 03/03/23 10:08 BP 138/85 03/03/23 10:08 BMI result Body Mass Index 36.0 GI Other: Very corpulent abdomen. Patient was examined both supine and standing with Valsalva. Because of the body habitus, it is unclear whether the patient has a supraumbilical ventral hernia or rectus diastasis. Assessment & Plan Assessment & Plan (1) Abdominal wall lump: Code(s): R22.2 - Localized swelling, mass and lump, trunk Plan: Current plan is to obtain a CT scan abdomen pelvis to further evaluate the patient's abdominal wall and direct further therapy/intervention based on these results. Orders: Orders CT abdomen pelvis wo/w IV con 4 Days R22.2 - Localized swelling, mass and lump, trunk Coding Level of Care Code New Pt Level 4 (23893) Diagnoses Abdominal wall lump R22.2
[2023-03-03 10:08] VITALS: BP 138/85; PULSE 86; BMI 36.0
== END 2023-03-03 10:19 | disposition home or self-care (01) ==
PROVIDERS: PCP Nurse Practitioner Family; Referring Provider Nurse Practitioner Family; Visit Provider Surgery
DX: R22.2 Localized swelling, mass and lump, trunk (principal)
CPT/HCPCS: 99204

== ENCOUNTER → 2023-03-03 09:59 | Outpatient (BNVA) | payer OTHER, SELFPAY | PROVIDERS: PCP Nurse Practitioner Family; Referring Provider Nurse Practitioner Family; Visit Provider Surgery | DX: R22.2 Localized swelling, mass and lump, trunk (principal) | CPT/HCPCS: 99202 ==

== ENCOUNTER 2023-04-07 12:37 | Outpatient (AMB) | payer OTHER, SELFPAY ==
--- NOTE | 2023-04-07 12:46 | A.OFFVIS_ITS ---
Intake Vital Signs 04/07/23 12:48 Height 5 ft 8 in Weight 236 lb BMI 35.9 BP 142/90 H Blood Pressure Location Lt brachial Position Sitting Pulse 70 Pulse Source Pulse Oximeter Pulse Oximetry (%) 99 Oxygen Delivery Method Room Air Intake Visit Reasons: [id number] Intake Note: Pt here to discuss establishing care for epilepsy. Pt has seen a neurologist in the past but it has been years , last seizure was 1 1/2 ago. Referred by internal pcp at [facility] [place] Allergies aspirin [ASPIRIN] Allergy (Unknown, Verified 04/07/23 12:51) ITCHY, itchy/HIVES Medication List - Last Reconciled 04/07/23 by Marivel Velasquez MD albuterol sulfate 90 mcg/actuation (Ventolin HFA) 2 puffs inhalation Q4-6H PRN buspirone 0 mg PO DAILY cholecalciferol (vitamin D3) 25 mcg PO DAILY clonazepam 0.5 mg PO BID PRN clonidine HCl 0.1 mg PO BEDTIME docusate sodium (Colace) 200 mg (2 x 100 mg) PO BEDTIME esomeprazole magnesium (Nexium) 40 mg PO TID 14 days hydrocortisone 2.5% (Proctosol HC) 1 appl IN BEDTIME PRN lisinopril 5 mg PO DAILY metformin ER 500 mg PO BID methylcellulose (laxative) (Citrucel) 500 mg PO BID polyethylene glycol 3350 (Miralax) 17 grams PO DAILY 30 days sertraline 200 mg PO BEDTIME simethicone (Gas Relief (simethicone)) 125 mg PO TID-QID PRN HPI HPI Comments History of Present Illness Details 42y/o male comes for further management of seizures. He started having seizures about 12 years ago. The first seizure was when he was shopping with his . He suddenly felt nauseous, dizzy,confused,blurry vision and had a witnessed clonic tonic seizures with tongue biting , urinary in continence . He woke up in ER , he had headache and was very tired , confused. He started having 1-2 seizures a week for 1 year. He was seeing Dr. Callejas. He had 1 episode when he was driving. He lost his license and job.He says after his first year his seizures became milder and less frequent. He stopped taking depakote and seeing his neurologist about 5 years ago. His last seizure was 18 mths ago - he had a minor episode. He fell backwards , says he was concious but had shaking. He does not drive [facility], [facility] Medical History Encounter to establish care COVID-19 Anxiety HTN (hypertension) Seizure Asthma Surgical History History of tonsillectomy History of eye surgery Family History Maternal Grandfather Prostate cancer Colon cancer Father Seizures History of heart artery stent Mother Diabetes Hypertension Social History Alcohol intake: never Patient Tobacco Use Status: Former Tobacco user Years Smoked: 10 yrs, quit 2020 service: No Current occupational status: unemployed Cognitive needs: No Hearing needs: No Vision needs: No Review of Systems Const All systems reviewed & are unremarkable except as noted in HPI and below Eyes Reports no additional complaints Card Denies chest pain and Denies dyspnea Resp Denies dyspnea Neuro Reports radicular pain and Reports seizure-like activity Psych Reports anxiety and Reports depression Physical Exam Vital Signs: Last Vital Signs Pulse 70 04/07/23 12:48 BP 142/90 H 04/07/23 12:48 Pulse Ox 99 04/07/23 12:48 Oxygen Delivery Method Room Air 04/07/23 12:48 BMI result Body Mass Index 35.9 Const General: cooperative and comfortable Nutritional Appearance: obese Orientation/consciousness: patient oriented x3 Eyes Pupils: Equal, round and reactive pupils present Neuro General: patient oriented x3, tone normal, moves all extremities and no focal motor deficits Cranial nerves: Yes Facial sensation intact/muscles of mastication intact, Yes Equal, round and reactive pupils present, Yes Bilaterally intact EOM present, Yes Nystagmus not present, Yes Normal facial strength present, Yes Midline tongue present and Yes Symmetric palate elevation present Cognition (Neuro): normal cognition Gait exam (Neuro): Normal gait present Motor exam (neuro): 5/5 motor strength present throughout and Normal motor muscle tone present throughout Deep tendon reflexes (DTR's): Right triceps reflex intensity grade: 1+, Left triceps reflex intensity grade: 1+, Rt Biceps (C5, C6): 1+, Left biceps reflex intensity grade: 1+, Right brachioradialis reflex intensity grade: 1+, Left brachioradialis reflex intensity grade: 1+, Right patellar reflex intensity grade: 1+ and Left patellar reflex intensity grade: 1+ Coordination: [id number] test normal Assessment & Plan Assessment & Plan (1) Seizure: Comment: Last episode 18 months ago Code(s): R56.9 - Unspecified convulsions Plan I will reevaluate him with MRI brain and EEG will consider adding an anticonvulsant NO DRIVING Orders: Orders MR head/brain wo con Today R56.9 - Unspecified convulsions EEG electroencephalogram Today R56.9 - Unspecified convulsions Coding Level of Care Code New Pt Level 4 (72133) Diagnoses Seizure R56.9
[2023-04-07 12:48] VITALS: BP 142/90; PULSE 70; O2SAT 99; BMI 35.9
== END 2023-04-07 13:22 | disposition home or self-care (01) ==
PROVIDERS: PCP Nurse Practitioner Family; Visit Provider Psychiatry & Neurology Neurology
DX: R56.9 Unspecified convulsions (principal)
CPT/HCPCS: 99204

== ENCOUNTER → 2023-04-07 12:37 | Outpatient (BNVA) | payer OTHER, SELFPAY | PROVIDERS: PCP Nurse Practitioner Family; Visit Provider Psychiatry & Neurology Neurology ==

== ENCOUNTER 2023-04-21 07:19 | Outpatient (REF) | payer OTHER, SELFPAY ==
--- NOTE | 2023-04-21 07:21 | EEG_ITS ---
FINDINGS: Awaking background activity consists of low-voltage fast frequencies and diffusely intermixed with low-voltage posterior 9 hertz alpha frequencies. Photic stimulation is without activation. Hyperventilation was omitted. No sleep stages are identified. No focal, lateralizing, or paroxysmal discharges seen. IMPRESSION: This waking EEG is within normal limits. MD CHARIS Gale/TANNER / [id number]
== END 2023-04-21 07:20 | disposition home or self-care (01) ==
LOC: HO.NEURO 07:19
PROVIDERS: Visit Provider Psychiatry & Neurology Neurology
DX: R56.9 Unspecified convulsions (principal)
CPT/HCPCS: 95816

== ENCOUNTER 2023-04-24 09:54 | Outpatient (AMB) | payer OTHER, SELFPAY ==
--- NOTE | 2023-04-24 09:57 | MHC.PC.OV ---
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 Allergies aspirin [ASPIRIN] Allergy (Unknown, Verified 04/24/23 10:07) ITCHY, itchy/HIVES Medication List - Last Reconciled 04/24/23 by LUCY Fontanez albuterol sulfate 90 mcg/actuation (Ventolin HFA) 2 puffs inhalation Q4-6H PRN buspirone 0 mg PO DAILY cholecalciferol (vitamin D3) 25 mcg PO DAILY clonazepam 0.5 mg PO BID PRN clonidine HCl 0.1 mg PO BEDTIME docusate sodium (Colace) 200 mg (2 x 100 mg) PO BEDTIME esomeprazole magnesium (Nexium) 40 mg PO TID 14 days hydrocortisone 2.5% (Proctosol HC) 1 appl [place] BEDTIME PRN lisinopril 5 mg PO DAILY metformin ER 500 mg PO BID methylcellulose (laxative) (Citrucel) 500 mg PO BID polyethylene glycol 3350 (Miralax) 17 grams PO DAILY 30 days sertraline 200 mg PO BEDTIME simethicone (Gas Relief (simethicone)) 125 mg PO TID-QID PRN Tobacco use date assessed: 04/24/23 Dental Screening Dental Screen Date: 04/24/23 Did you have a dental visit in the last 12 months?: Yes Did you have a dental problem in the last 6 months where you did not have access to dental care?: No Was dental information given to patient?: Patient has dentist HPI 3mon f/u HPI Details Patient is a 42-year-old male who presents today for a routine follow-up. Medical history significant for asthma, hypertension, depression and anxiety-followed by Psychiatry and therapist at [facility], seizures- followed by [place] neurolog[facility] - currently not on medication,?obesity, hypertriglyceridemia, diabetes. Patient reports that he is compliant with medications and denies side effects. He reports blood sugars at home ranging between 119 and 254. Patient has an upcoming diabetic eye exam. He will be having colonoscopy and endoscopy next week. Patient is due for blood work next month. Patient denies shortness of breath or chest pain. [facility] Medical History Encounter to establish care COVID-19 Anxiety HTN (hypertension) Seizure Asthma Surgical History History of tonsillectomy History of eye surgery Family History Maternal Grandfather Prostate cancer Colon cancer Father Seizures History of heart artery stent Mother Diabetes Hypertension Social History Alcohol intake: never Patient Tobacco Use Status: Former Tobacco user Years Smoked: 10 yrs, quit 2020 service: No Current occupational status: unemployed Cognitive needs: No Hearing needs: No Vision needs: No Questionnaire Thrive Questionnaire Date Thrive assessed: 11/20/22 AUDIT C Alcohol Use Questionnaire (AUDIT-C) 1. How often do you have a drink containing alcohol?: Never 3. How often do you have six or more drinks on one occasion?: Never Total Score: 0 Score Reviewed/Action Taken: No MOOK-7 AMB Questionnaire MOOK-7 Date MOOK - 7 assessed: 01/20/23 Source: Developed by Drs. Zac Cao, Caprice Mccord, Max Fletcher and colleagues, with an educational timbo from [employer]. Review of Systems Const Denies body aches, Denies chills, Denies fever(s) and Denies headache(s) Eyes Denies change in vision ENT Denies dizziness, Denies otalgia, Denies headache(s), Denies nasal discharge, Denies sinus pain and Denies sore throat Card Denies chest pain, Denies edema, Denies lightheadedness and Denies dyspnea Resp Denies cough and Denies dyspnea GI Reports bloating, Denies constipation, Denies diarrhea, Denies nausea and Denies vomiting Denies dysuria Musc Denies myalgias Skin/Breast Denies lesions and Denies rash Neuro Denies dizziness and Denies headache(s) Physical exam (Primary Care) Vital Signs: Last Vital Signs Pulse 84 04/24/23 09:58 BP 130/90 H 04/24/23 10:18 Pulse Ox 97 04/24/23 09:58 Oxygen Delivery Method Room Air 04/24/23 09:58 BMI result Body Mass Index 35.7 Tobacco/Smoking Status: Tobacco use Status Tobacco use date assessed 04/24/23 04/24/23 09:59 Patient Tobacco Use Status Former Tobacco user 04/24/23 09:57 Thrive Assessment: Date of Thrive Assessment Date Thrive assessed 11/20/22 04/24/23 09:57 Const General: cooperative and no acute distress Orientation/consciousness: patient oriented x3 HENMT Head: Yes normocephalic and Yes atraumatic Face and sinus: Yes sinuses nontender Mouth: oropharynx normal and moist mucous membranes Throat: Yes posterior oropharynx normal Eyes General: appearance normal, both eyes and all related structures Neck Neck: Yes normal visual inspection, Yes full ROM and Yes no lymphadenopathy Resp Effort & Inspection: normal respiratory effort and able to speak in complete sentences Auscultation: clear to auscultation bilaterally, no crackles, no rales, no rhonchi and no wheezes Cardio Rate: regular rate Rhythm: regular rhythm Heart sounds: S1 normal heart sound present, S2 normal heart sound present and no murmurs GI Auscultation: normal bowel sounds Skin General skin exam: no rashes or lesions noted Neuro General: patient oriented x3 Gait exam (Neuro): Normal gait present Extrem General: Yes full ROM and No edema Office Procedures Flu Questionnaire Does the patient have a severe egg allergy?: No Does the patient have severe life threatening allergies?: No Does the patient have a fever or illness today?: No Has the patient ever had Guillain-[place] Syndrome?: No Has the patient ever had any past reaction to a flu shot?: No Results AMB Random Glucose (hemocue) AMB Random Glucose (hemocue) 137 mg/dL Last Edit by SOMMER Ramon on 04/24/23 10:13 Immunizations flu vacc [id number] 6mos up(PF) 60 mcg(15 mcgx4)/0.5 mL IM syringe Performing Provider: LUCY Fontanez Performing Location: [facility] Administered by: SOMMER Ramon on 04/24/23 10:13 Dose Route Admin Location Dispensed Lot Number Expiration Date NDC Veneer Sample Maker 0.5 mL IM Left Deltoid 0.5 mL [id number] 01/10/24 [id number] [employer] VIS Given Date VIS Provided VIS Publication Date 04/24/23 Single Vaccine 21 Eligibility Eligibility Date Funding Source Not VF Eligible 04/24/23 Private Results Reviewed Results Reviewed: Laboratory Last Values Random Glu (Clinic) 137 mg/dL 04/24/23 10:12 Assessment and Plan Assessment & Plan (1) Seizure: Comment: Last episode 18 months ago Code(s): R56.9 - Unspecified convulsions Plan: Continue to follow-up with [place] neurology-currently not on medication (2) Anxiety: Code(s): F41.9 - Anxiety disorder, unspecified Plan: Continue to follow-up with psychiatry and therapist at [facility] - manage mental health medications (3) Depression: Code(s): F32.A - Depression, unspecified Qualifiers: Depression Type: other depression Qualified Code(s): F32.89 - Other specified depressive episodes Plan: Continue to follow-up with psychiatry and therapist at [facility] - manage mental health medications (4) HTN (hypertension): Code(s): I10 - Essential (primary) hypertension Plan: Goal BP equal or less than 140/90 Continue lisinopril 5 mg daily Low-sodium diet and weight loss Patient was encouraged to monitor his blood pressures at home (5) Asthma: Code(s): J45.909 - Unspecified asthma, uncomplicated Plan: Stable Continue albuterol inhaler p.r.n. (6) Obesity (BMI 30-39.9): Code(s): E66.9 - Obesity, unspecified Plan: Healthy food choices and exercise as tolerated (7) Hypertriglyceridemia: Code(s): E78.1 - Pure hyperglyceridemia Plan: Triglycerides 321 01/2023 goal less than 150; LDL 104 Encouraged low-cholesterol diet, low-carbohydrate diet and weight loss Continue to monitor (8) New onset type 2 diabetes mellitus: Code(s): E11.9 - Type 2 diabetes mellitus without complications Plan: A1c 10.4 02/2023, goal less than 7 Continue metformin 500 mg b.i.d. Low-carbohydrate diet Referral for diabetes Education Patient has an upcoming diabetic eye exam Orders: Orders Influenza [id number] Immunization 04/24/23 Z23 - Encounter for immunization Comprehensive [place]. Panel Fast 04/24/23 E11.9 - Type 2 diabetes mellitus without complications Lipid Panel 04/24/23 E11.9 - Type 2 diabetes mellitus without complications AMB Random Glucose (hemocue) 04/24/23 Z13.9 - Encounter for screening, unspecified Hemoglobin A1c 04/24/23 E11.9 - Type 2 diabetes mellitus without complications Microalbumin, Random (w Creat) 04/24/23 E11.9 - Type 2 diabetes mellitus without complications Referrals Diabetes Education Referral E11.9 - Type 2 diabetes mellitus without complications Coding Level of Care Code Est Pt Level 4 (58287) Diagnoses Seizure R56.9 Anxiety F41.9 Other depression F32.89 Depression Type: other depression HTN (hypertension) I10 Asthma J45.909 Obesity (BMI 30-39.9) E66.9 Hypertriglyceridemia E78.1 New onset type 2 diabetes mellitus E11.9
[2023-04-24 09:58] VITALS: BP 130/90; PULSE 84; O2SAT 97; BMI 35.7
[2023-04-24 10:18] VITALS: BP 130/90
== END 2023-04-24 10:24 | disposition home or self-care (01) ==
PROVIDERS: PCP Nurse Practitioner Family; Visit Provider Nurse Practitioner Family
DX: Z23 Encounter for immunization (principal); E11.9 Type 2 diabetes mellitus without complications
CPT/HCPCS: 82948; 90471; 90686; 99214

== ENCOUNTER 2023-04-29 06:45 | Day surgery (SDC) | payer OTHER, SELFPAY ==
[2023-04-27 14:12] VITALS: BMI 36.2
--- NOTE | 2023-04-28 08:47 | HO.ANESPROP2 ---
HPI - Anesthesia Eval Consult details Narrative: 42yo M for Upper Endoscopy and Colonoscopy [facility] Active Problems Active Problems: All Active Problems (Updated 04/07/23 @ 13:18 by Marivel Velasquez MD) New onset type 2 diabetes mellitus (Acute) Abdominal pain (Acute) H. pylori infection (Acute) Adult general medical exam (Acute) Abdominal wall lump (Acute) Bloating (Acute) Heartburn (Acute) Chronic constipation (Acute) Hyponatremia (Acute) Elevated fasting glucose (Acute) Hypertriglyceridemia (Acute) Low vitamin D level (Acute) Obesity (BMI 30-39.9) (Acute) Intermittent chest pain (Acute) Blood in stool (Acute) Seizure (Acute) Anxiety (Acute) Depression (Acute) HTN (hypertension) (Acute) Asthma (Acute) Past Medical History Medical History Encounter to establish care COVID-19 Anxiety HTN (hypertension) Seizure Asthma Family History Family History Maternal Grandfather Prostate cancer Colon cancer Father Seizures History of heart artery stent Mother Diabetes Hypertension Surgical History Surgical History History of tonsillectomy History of eye surgery Social History Social History Alcohol intake: never Patient Tobacco Use Status: Former Tobacco user Years Smoked: 10 yrs, quit 2020 service: No Current occupational status: unemployed Cognitive needs: No Hearing needs: No Vision needs: No Meds Allergies Allergy/AdvReac Type Severity Reaction Status Date / Time aspirin [ASPIRIN] Allergy Unknown ITCHY, Verified 04/24/23 10:07 itchy/HIVES Home Medications Medication Instructions Recorded Confirmed Last Taken Type buspirone 7.5 mg tablet 0 mg PO DAILY 11/20/22 04/24/23 Unknown History clonazepam 0.5 mg tablet 0.5 mg PO BID PRN 11/20/22 04/24/23 Unknown History clonidine HCl 0.1 mg tablet 0.1 mg PO BEDTIME 11/20/22 04/24/23 Unknown History sertraline 100 mg tablet 200 mg PO BEDTIME 11/20/22 04/24/23 Unknown History Exam Exam Date and Time: April 28, 2023 0847 Height,Weight and Vital Signs: Height 5 ft 8 in Weight 107.955 kg Pertinent Lab Results Pertinent Lab Results: Laboratory Tests 11/24/22 02/12/23 09:05 08:47 WBC 6.9 Hgb 14.5 Hct 43.8 Plt Count 252 Sodium 134 L Potassium 4.5 Chloride 99 Carbon Dioxide 24 BUN 13 Creatinine 1.09 Assessment and Plan Assessment Anesthesia Assessment: Chart Reviewed
[2023-04-29 08:52] VITALS: BP 133/86; PULSE 55; RESP 19; TEMP 36.1; O2SAT 98
[2023-04-29 09:03] LABS: Glucose, Whole Blood 124 mg/dL (60-115)
[2023-04-29] MEDS: Lactated Ringers 1,000 ML 100 ML IVCONT (09:17)
--- NOTE | 2023-04-29 09:55 | HO.ANESPROP2 ---
[facility] Active Problems Active Problems: All Active Problems (Updated 04/07/23 @ 13:18 by Marivel Velasquez MD) New onset type 2 diabetes mellitus (Acute) Abdominal pain (Acute) H. pylori infection (Acute) Adult general medical exam (Acute) Abdominal wall lump (Acute) Bloating (Acute) Heartburn (Acute) Chronic constipation (Acute) Hyponatremia (Acute) Elevated fasting glucose (Acute) Hypertriglyceridemia (Acute) Low vitamin D level (Acute) Obesity (BMI 30-39.9) (Acute) Intermittent chest pain (Acute) Blood in stool (Acute) Seizure (Acute) Anxiety (Acute) Depression (Acute) HTN (hypertension) (Acute) Asthma (Acute) Past Medical History Medical History Encounter to establish care COVID-19 Anxiety HTN (hypertension) Seizure Asthma Functional capacity: independent ambulation Family History Family History Maternal Grandfather Prostate cancer Colon cancer Father Seizures History of heart artery stent Mother Diabetes Hypertension Surgical History Surgical History History of tonsillectomy History of eye surgery History of Problems with Anesthesia: No Social History Social History Alcohol intake: never Patient Tobacco Use Status: Former Tobacco user Years Smoked: 10 yrs, quit 2020 Are you DNR?: No Advance Directives: No Advance Directives Information Provided: Yes Recently lost weight without trying: No Nutrition Risks: No Nutritional Risk service: No Current occupational status: unemployed Cognitive needs: No Hearing needs: No Vision needs: No Meds Allergies Allergy/AdvReac Type Severity Reaction Status Date / Time aspirin [ASPIRIN] Allergy Unknown ITCHY, Verified 04/24/23 10:07 itchy/HIVES Active Medications: Current Medications Albuterol Sulfate (Albuterol Sulfate (0.083%) 2.5 Mg/3 Ml Vial.Neb) 2.5 mg INHALE ONCE PRN PRN Reason: Shortness of Breath/Wheezing Lactated Ringer's (Lr) 1,000 mls @ 100 mls/hr IVCONT .Q10H CHATO Last Admin: 04/29/23 09:17 Dose: 100 mls/hr Home Medications Medication Instructions Recorded Confirmed Last Taken Type buspirone 7.5 mg tablet 0 mg PO DAILY 11/20/22 04/24/23 04/29/23 History clonazepam 0.5 mg tablet 0.5 mg PO BID PRN 11/20/22 04/24/23 Unknown History clonidine HCl 0.1 mg tablet 0.1 mg PO BEDTIME 11/20/22 04/24/23 Unknown History sertraline 100 mg tablet 200 mg PO BEDTIME 11/20/22 04/24/23 Unknown History Exam Exam Date and Time: April 29, 2023 0955 Height,Weight and Vital Signs: Height 5 ft 8 in Weight 107.955 kg Last Vital Signs Temp 97 F 04/29/23 08:52 Pulse 55 04/29/23 08:52 Resp 19 04/29/23 08:52 BP 133/86 04/29/23 08:52 Pulse Ox 98 04/29/23 08:52 O2 Del Method Room Air 04/29/23 08:52 Pertinent Lab Results Pertinent Lab Results: Laboratory Tests 04/29/23 08:58 POC Glucose 124 H Airway Mallampati Class: III TM Dist: >3cm Neck ROM: Full Heart: RRR Lungs: CTA Assessment and Plan Assessment Anesthesia Assessment: Anesthesia Plan Discussed Final Anesthetic Review History of Problems with Anesthesia: No ASA Class: III Final Preanesthetic Review: Meds/Allgs Chart Reviewed, Consent Obtained/Reviewed and Anes Risks/Benef Reviewed Patient Risk: Intermediate Procedure Risk: Low Anesthetic Plan Anesthetic Plan: MAC: Disposition: Standard PACU
--- NOTE | 2023-04-29 10:28 | MHC.SHP ---
Pre-Procedural Eval Section A Date of Service: 04/29/23 Section B Chief Complaint: specified bacterial intestinal infections,heartbur Details of Present Illness: grand parent with CRC Relevant Family History (Specify if Yes): Yes Relevant Social History: None Present Medications: see Short Stay Collaborative assessment Medical History: Significant History (COVID-19 Anxiety HTN (hypertension) Seizure Asthma) History of Previous Operations: Relevant previous surgery/procedure and date(s) (tonsils, eye surgery) Allergies: Allergies Allergy/AdvReac Type Severity Reaction Status Date / Time aspirin [ASPIRIN] Allergy Unknown ITCHY, Verified 04/24/23 10:07 itchy/HIVES Review of Systems Sugical H&P ROS: Negative: Constitution, Cardiovascular, Respiratory, Neurological, Psychiatric, Hem-Onc, Allergic/Immunologic, Gastrointestinal, Genitourinary, Musculoskeletal, Integumentary, Endocrine and Eyes/Ears/Nose/Throat Exam Surgical H&P Exam: Normal: HEENT, Normal: Heart, Normal: Lungs, Normal: Extremities, Normal: Abdomen, Normal: Skin and Normal: Neurological Plan Diagnosis/Plan: Unchanged I have reviewed the history and physical and performed a pertinent physical examination on my patient. No changes have occurred unless specified. Time Spent With Patient Time: Total time managing care of this patient today ____ minutes.
--- NOTE | 2023-04-29 10:56 | P.CONAN_ITS ---
[facility] Active Problems Active Problems: All Active Problems (Updated 04/07/23 @ 13:18 by Marivel Velasquez MD) New onset type 2 diabetes mellitus (Acute) Abdominal pain (Acute) H. pylori infection (Acute) Adult general medical exam (Acute) Abdominal wall lump (Acute) Bloating (Acute) Heartburn (Acute) Chronic constipation (Acute) Hyponatremia (Acute) Elevated fasting glucose (Acute) Hypertriglyceridemia (Acute) Low vitamin D level (Acute) Obesity (BMI 30-39.9) (Acute) Intermittent chest pain (Acute) Blood in stool (Acute) Seizure (Acute) Anxiety (Acute) Depression (Acute) HTN (hypertension) (Acute) Asthma (Acute) Past Medical History Medical History Encounter to establish care COVID-19 Anxiety HTN (hypertension) Seizure Asthma Functional capacity: independent ambulation Family History Family History Maternal Grandfather Prostate cancer Colon cancer Father Seizures History of heart artery stent Mother Diabetes Hypertension Family history of problems with anesthesia: No Surgical History Surgical History History of tonsillectomy History of eye surgery History of Problems with Anesthesia: No Social History Social History Alcohol intake: never Patient Tobacco Use Status: Former Tobacco user Years Smoked: 10 yrs, quit 2020 service: No Current occupational status: unemployed Cognitive needs: No Hearing needs: No Vision needs: No Meds Allergies Allergy/AdvReac Type Severity Reaction Status Date / Time aspirin [ASPIRIN] Allergy Unknown ITCHY, Verified 04/24/23 10:07 itchy/HIVES Active Medications: Current Medications Albuterol Sulfate (Albuterol Sulfate (0.083%) 2.5 Mg/3 Ml Vial.Neb) 2.5 mg INHALE ONCE PRN PRN Reason: Shortness of Breath/Wheezing Lactated Ringer's (Lr) 1,000 mls @ 100 mls/hr IVCONT .Q10H CHATO Last Admin: 04/29/23 09:17 Dose: 100 mls/hr Home Medications Medication Instructions Recorded Confirmed Last Taken Type buspirone 7.5 mg tablet 0 mg PO DAILY 11/20/22 04/24/23 04/29/23 History clonazepam 0.5 mg tablet 0.5 mg PO BID PRN 11/20/22 04/24/23 Unknown History clonidine HCl 0.1 mg tablet 0.1 mg PO BEDTIME 11/20/22 04/24/23 Unknown History sertraline 100 mg tablet 200 mg PO BEDTIME 11/20/22 04/24/23 Unknown History Exam Exam Date and Time: April 29, 2023 1056 Height,Weight and Vital Signs: Height 5 ft 8 in Weight 107.955 kg Last Vital Signs Temp 97 F 04/29/23 08:52 Pulse 55 04/29/23 08:52 Resp 19 04/29/23 08:52 BP 133/86 04/29/23 08:52 Pulse Ox 98 04/29/23 08:52 O2 Del Method Room Air 04/29/23 08:52 Pertinent Lab Results Pertinent Lab Results: Laboratory Tests 04/29/23 08:58 POC Glucose 124 H Airway Mallampati Class: III TM Dist: >3cm Neck ROM: Full Assessment and Plan Final Anesthetic Review Family History of Problems with Anesthesia: No History of Problems with Anesthesia: No NPO: Yes ASA Class: III Final Preanesthetic Review: Meds/Allgs Chart Reviewed, Consent Obtained/Reviewed and Anes Risks/Benef Reviewed Patient Risk: Low Procedure Risk: Low Anesthetic Plan Anesthetic Plan: MAC: Disposition: Standard PACU
--- NOTE | 2023-04-29 11:10 | W.PM.OPN ---
Operative Note Operative Note Date of Service: 04/29/23 Narrative: Operative Information Procedure Description: EGD, Colonoscopy Indication: rectal bleeding, epigastric pain Anesthesia: MAC FLEXIBLE TRANSORAL UPPER GASTROINTESTINAL ENDOSCOPY AND COLONOSCOPY PROCEDURE NOTE UPPER ENDOSCOPY Consent: Indications for the procedure and potential complications of bleeding, perforation, reaction to medications and missed diagnosis were discussed with the patient and informed consent was obtained. Instrument: Olympus GIF H 190 J mid size upper endoscope Monitoring: Vital signs and clinical assessment, continuous EKG monitoring, Pulse oximetry, Carbon Dioxide monitoring and blood pressure monitoring were done throughout the procedure. Procedure: The patient was placed in the left lateral decubitis position and pre-procedure medications were administered and a bite block was placed. The endoscope was inserted into the mouth and advanced under direct vision to the third part of duodenum. A careful inspection was made as the upper endoscope was withdrawn including a retroflexed examination of the proximal stomach; Findings and interventions are described below. Findings: Larynx:normal Esophagus: GE junction at 38 cm, diaphragm hiatus at 40 cm, consistent with 2 cm sliding hiatal hernia with mild esophagitis Stomach: Normal mucosa. Biopsies were obtained. Grade 2 flap valve on retroflexed examination of the cardia. There appeared to be reduced gastric movement. Duodenum: Normal bulb and descending duodenum, bx taken Intervention: Biopsies as noted above COLONOSCOPY Instrument: Olympus variable stiffness pediatric scope 190L Colonoscopy Monitoring: Vital signs and clinical assessment, continuous EKG monitoring, Pulse oximetry, Carbon Dioxide monitoring and blood pressure monitoring were done throughout the procedure. Colon withdrawal time was 8 minutes. Procedure: The patient was placed in the left lateral decubitis position and pre-procedure medications were administered. After a digital rectal examination of the ano-rectum, the video colonoscope was inserted into the rectum and advanced through the colon to the cecum/TI. The colonoscope was slowly withdrawn in a retrograde panoramic fashion and the colon mucosa was carefully examined including a retroflexed view of the rectum. Findings and interventions are described below. Procedure Difficulty:easy Findings: Terminal Ileum-normal Cecum:normal Ascending Colon: 3-4 mm sessile polyp removed with cold forceps Transverse Colon -normal Descending Colon:normal Sigmoid Colon: normal Rectum: Retroflexion with small, inflammed internal hemorrhoids, grade I Anorectum - normal Colon preparation: [place] Bowel Preparation Scale Right colon; 1-2 Transverse colon: 1-2 Left colon; 2 (0 = Unprepared colon segment with mucosa not seen due to solid stool that cannot be cleared. 1 = Portion of mucosa of the colon segment seen, but other areas of the colon segment not well seen due to staining, residual stool and/or opaque liquid. 2 = Minor amount of residual staining, small fragments of stool and/or opaque liquid, but mucosa of colon segment seen well. 3 = Entire mucosa of colon segment seen well with no residual staining, small fragments of stool or opaque liquid) Impression and Post Procedure Diagnosis: Endoscopy Findings: hiatal hernia possible gastroparesis mild esophagitis Colonoscopy Findings: polyp internal hemorrhoids Plan: Await Pathology results Repeat Colonoscopy in 5 years due to polyp and fair prep in some areas or earlier if clinically indicated High fiber diet leaflet avoid straining at stool, epsom salts and sitz bath, anusol supps or cream if h pylori pos then treat, can consider GES to r/o gastroparesis GERD precautions Above findings were reviewed with the patient and relevant handouts were provided if indicated.
[2023-04-29 11:16] VITALS: BP 98/55; PULSE 57; RESP 16; TEMP 36.1; O2SAT 96
[2023-04-29 11:30] VITALS: BP 98/63; PULSE 51; RESP 16; O2SAT 99
[2023-04-29 11:45] VITALS: BP 114/84; PULSE 59; RESP 16; TEMP 36.3; O2SAT 99
== END 2023-04-29 12:27 | disposition home or self-care (01) ==
PROVIDERS: PCP Nurse Practitioner Family; Visit Provider Internal Medicine Gastroenterology
PROC: (CPT 45380; principal; 2023-04-29 10:10)
DX: K62.5 Hemorrhage of anus and rectum (principal); K63.5 Polyp of colon; K64.0 First degree hemorrhoids; R10.13 Epigastric pain; K20.80 Other esophagitis without bleeding; K29.50 Unspecified chronic gastritis without bleeding; B96.81 Helicobacter pylori [H. pylori] as the cause of diseases classified elsewhere; K44.9 Diaphragmatic hernia without obstruction or gangrene; I10 Essential (primary) hypertension; E11.9 Type 2 diabetes mellitus without complications; J45.909 Unspecified asthma, uncomplicated; F41.9 Anxiety disorder, unspecified; R56.9 Unspecified convulsions; Z79.899 Other long term (current) drug therapy; Z79.84 Long term (current) use of oral hypoglycemic drugs; Z88.8 Allergy status to other drugs, medicaments and biological substances; Z87.891 Personal history of nicotine dependence
CPT/HCPCS: 45380; 43239; 82947; 88305; 88342

== ENCOUNTER → 2023-04-29 06:45 | Outpatient (BNV) | payer OTHER, SELFPAY | PROVIDERS: PCP Nurse Practitioner Family; Visit Provider Internal Medicine Gastroenterology | DX: K62.5 Hemorrhage of anus and rectum (principal); K63.5 Polyp of colon; K64.0 First degree hemorrhoids; K20.90 Esophagitis, unspecified without bleeding | CPT/HCPCS: 43239; 45380 ==

== ENCOUNTER 2023-05-13 09:04 | Outpatient (AMB) | payer OTHER, SELFPAY ==
--- NOTE | 2023-05-13 09:09 | MHC.OFFVIS ---
Intake Vital Signs 05/13/23 09:30 Height 5 ft 8 in Weight 232 lb BMI 35.3 BP 139/77 Blood Pressure Location Lt brachial Position Sitting Pulse 68 Intake Visit Reasons: S/P Double; Dr. Hannon Intake Note: Patient follow up for Colonoscopy /EGD results. Patient cc: Abdominal bloating, denies any other GI issues. Social Media Campaign Manager Required: No Accompanied by: Self / Same As Patient Allergies aspirin [ASPIRIN] Allergy (Unknown, Verified 05/13/23 09:08) ITCHY, itchy/HIVES HPI HPI Comments History of Present Illness Details 42-year-old DM male follows up after recent EGD and colonoscopy for acid reflux, early satiety He tolerated procedures well He has abdominal bloating, early satiety, he just began treatment for H pylori he is tolerating this well Bowels are improved with maintain high-fiber Many questions regards to diet Reviewed procedure report, pathology and recommending Occasional nausea no vomiting no abdominal pain fever or chills PFSH Medical History Encounter to establish care COVID-19 Anxiety HTN (hypertension) Seizure Asthma Surgical History Hx of colonoscopy History of esophagogastroduodenoscopy (EGD) History of tonsillectomy History of eye surgery Family History Maternal Grandfather Prostate cancer Colon cancer Father Seizures History of heart artery stent Mother Diabetes Hypertension Social History Alcohol intake: never Patient Tobacco Use Status: Former Tobacco user Years Smoked: 10 yrs, quit 2020 service: No Current occupational status: unemployed Cognitive needs: No Hearing needs: No Vision needs: No Review of Systems Const All systems reviewed & are unremarkable except as noted in HPI and below Card Denies chest pain and Denies dyspnea Resp Denies dyspnea GI Denies abdominal pain, Reports bloating, Denies hematochezia, Reports early satiety, Reports diarrhea and Reports nausea Physical Exam Vital Signs: Last Vital Signs Pulse 68 05/13/23 09:30 BP 139/77 05/13/23 09:30 BMI result Body Mass Index 35.3 Const General: cooperative, healthy appearing, comfortable and no acute distress Orientation/consciousness: patient oriented x3 Limitations: no limitations Resp Effort & Inspection: normal respiratory effort and able to speak in complete sentences Neuro General: patient oriented x3 Extrem General: Yes full ROM Psych Appearance: grossly normal and well kempt Mental Status: mental status grossly normal Speech and movement: Normal speech and movement present and Clear speech present Affect: normal affect Thought process: Normal thought process present Thought content: Normal thought content present Insight: Good insight present (Psych) Judgement: Good judgement present (Psych) Results Reviewed Results Reviewed: Impression and Post Procedure Diagnosis: Endoscopy Findings: hiatal hernia possible gastroparesis mild esophagitis Colonoscopy Findings: polyp internal hemorrhoids Plan: Await Pathology results Repeat Colonoscopy in 5 years due to polyp and fair prep in some areas or earlier if clinically indicated High fiber diet leaflet avoid straining at stool, epsom salts and sitz bath, anusol supps or cream if h pylori pos then treat, can consider GES to r/o gastroparesis GERD precautions Above findings were reviewed with the patient and relevant handouts were provided if indicated. Addendum Addendum #1 (E): Colonic mucosa with prominent lymphoid aggregate; negative for adenomatous dysplasia. Electronically Signed By: Adriana Guerin 05/04/23 1213 Diagnosis A. Duodenum, biopsy: Duodenal mucosa with preserved villi and no specific change. B. Stomach, biopsy: Chronic Helicobacter gastritis with mild activity; negative for intestinal metaplasia and dysplasia. C. Gastroesophageal junction, biopsy: Squamous mucosa with hyperplasia and intraepithelial eosinophils (up to 6 per high-power field) consistent with esophagitis, and columnar mucosa with moderate chronic active inflammation; negative for intestinal metaplasia and dysplasia. D. Esophagus, distal, biopsy: Squamous mucosa with hyperplasia and focal intraepithelial eosinophils (up to 3 per high-power field) consistent with esophagitis; no columnar mucosa present. E. Colon, ascending, polyp: Additional levels pending; addendum to follow. Clinical History Pre-Op Dx: Rectal bleeding, epigastric pain Post-Op Dx: Hiatal hernia, mild esophagitis, possible gastroparesis, colon polyp, grade 1 inflamed internal hemorrhoids Microscopic Description Microscopic sections reviewed. Immunostain for H. pylori on B is positive with appropriate control. Material Received A. Duodenum bx's B. Stomach bx's C. G-E junction bx's Patient: Erick Cortez Age/Sex: 42/M MR#: [id number] Page 1 of 2 Assessment & Plan Assessment & Plan (1) Early satiety: Code(s): R68.81 - Early satiety Plan: GES (2) New onset type 2 diabetes mellitus: Comment: has appt with nutrition Code(s): E11.9 - Type 2 diabetes mellitus without complications (3) Bloating: Code(s): R14.0 - Abdominal distension (gaseous) Plan: FODMAP (4) H. pylori infection: Comment: H pylori was positive complete 2 weeks course antibiotics Needs DEWAYNE- 6 weeks- Code(s): A04.8 - Other specified bacterial intestinal infections Plan: DEWAYNE 6 weeks N p.o. 1 hour prior (5) Chronic constipation: Comment: Consistent bowel regimen high-fiber diet Code(s): K59.09 - Other constipation Plan: Disc HFD- however has bloat- will need to adjust- Orders: Orders H Pylori Breath Test 6 Weeks A04.8 - Other specified bacterial intestinal infections NM gastric emptying study Today E11.9 - Type 2 diabetes mellitus without complications, R14.0 - Abdominal distension (gaseous), R68.81 - Early satiety Patient Instructions: DEWAYNE 6 weeks N p.o. 1 hour prior FODMAP Consistent bowel regimen high-fiber diet GES- Coding Level of Care Code Est Pt Level 3 (13353) Diagnoses Early satiety R68.81 New onset type 2 diabetes mellitus E11.9 Bloating R14.0 H. pylori infection A04.8 Chronic constipation K59.09 Time Spent (min) 30
[2023-05-13 09:30] VITALS: BP 139/77; PULSE 68; BMI 35.3
== END 2023-05-13 10:12 | disposition home or self-care (01) ==
PROVIDERS: PCP Nurse Practitioner Family; Visit Provider Physician Assistant
DX: R68.81 Early satiety (principal); E11.9 Type 2 diabetes mellitus without complications; R14.0 Abdominal distension (gaseous); A04.8 Other specified bacterial intestinal infections; K59.09 Other constipation
CPT/HCPCS: 99213

== ENCOUNTER → 2023-05-13 09:04 | Outpatient (BNVA) | payer OTHER, SELFPAY | PROVIDERS: PCP Nurse Practitioner Family; Visit Provider Physician Assistant | DX: K44.9 Diaphragmatic hernia without obstruction or gangrene (principal); K20.90 Esophagitis, unspecified without bleeding; K63.5 Polyp of colon; K64.8 Other hemorrhoids; R68.81 Early satiety; E11.9 Type 2 diabetes mellitus without complications; R14.0 Abdominal distension (gaseous); A04.8 Other specified bacterial intestinal infections; K59.09 Other constipation; Z98.890 Other specified postprocedural states | CPT/HCPCS: 99212 ==

== ENCOUNTER 2023-05-26 16:33 | Outpatient (REF) | payer OTHER, SELFPAY ==
--- NOTE | ~2023-05-26 | MR_ITS ---
EXAMINATION: MR BRAIN WITHOUT CONTRAST CLINICAL INFORMATION: Convulsions COMPARISON: MRI brain 01/31/2012 TECHNIQUE: MRI of the brain was obtained using routine sequences without contrast. FINDINGS: Dedicated coronal oblique imaging through the temporal lobes reveal symmetric appearance of the bilateral hippocampi with normal morphology and signal intensity. No evidence of mesial temporal sclerosis. No identifiable malformation of cortical development. No acute infarct. No acute intracranial hemorrhage or extra-axial fluid collection. Slight increase in mild lateral and third ventriculomegaly for age. Stable single nonspecific T2 FLAIR hyperintense focus in the left centrum semiovale. No mass lesion, mass effect, or herniation pattern. Normal intracranial arterial and dural venous sinus flow voids. Normal appearance of the midline structures. The orbits are grossly unremarkable. The paranasal sinuses and mastoids are well aerated. Normal marrow signal. MR/MR head/brain wo con IMPRESSION: No structural epileptogenic lesion within limitations of a noncontrast 1.5 [place] examination. Slight increase in mild lateral and third ventriculomegaly for age suggest progressive mild volume loss .
== END 2023-05-26 16:34 | disposition home or self-care (01) ==
LOC: HO.MRI 16:33
PROVIDERS: PCP Nurse Practitioner Family; Visit Provider Psychiatry & Neurology Neurology
DX: R56.9 Unspecified convulsions (principal)
CPT/HCPCS: 70551

== ENCOUNTER → 2023-06-16 07:23 | Outpatient (REF) | payer OTHER, SELFPAY ==
--- NOTE | ~2023-06-16 | NM_ITS ---
EXAMINATION: RADIONUCLIDE SOLID FOOD GASTRIC EMPTYING 4-HOUR STUDY CLINICAL INFORMATION: Abdominal gaseous distention. COMPARISON: No previous gastric emptying study is available for comparison. TECHNIQUE: A standard meal consisting of 4 oz of Egg Beaters brand tagged with 930 microcuries Tc-99m Sulfur Colloid, 8 oz water and 2 slices of toast with jelly was administered orally to the patient. Images were obtained using a dual head gamma camera in the anterior and posterior projections over of the stomach immediately post ingestion and at hourly intervals up to 3 hours post ingestion. Images were not obtained at 4 hours due to the minimal retention at 3 hours. The anterior and posterior counts at each time interval were averaged using the geometric mean and expressed as percentage of the immediate post ingestion counts. FINDINGS: There is good visualization of activity in the stomach immediately post ingestion. As the study progresses, there is good clearance of activity from the stomach and visualization of progressively increasing small bowel activity. By the end of the study, there is almost no retention noted in the stomach. Retention in the stomach at each time interval was: 1 hour 39% (normal 37%-90%) 2 hours 16% (normal 30%-60%) 3 hours 2% 4 hours (Not Obtained) (normal 0%-10%) NM/NM gastric emptying study IMPRESSION: Normal solid food gastric emptying study.
== END ==
LOC: HO.NUCMED 07:23
PROVIDERS: PCP Nurse Practitioner Family; Visit Provider Physician Assistant
DX: R68.81 Early satiety (principal); R14.0 Abdominal distension (gaseous); E11.9 Type 2 diabetes mellitus without complications
CPT/HCPCS: 78264; A9541

== ENCOUNTER 2023-08-04 08:59 | Outpatient (AMB) | payer OTHER, SELFPAY ==
--- NOTE | 2023-08-04 09:36 | MHC.PC.OV ---
Vital Signs 08/04/23 09:39 Height 5 ft 8 in Weight 242 lb 8 oz BMI 36.9 BP 110/70 Blood Pressure Location Lt brachial Position Sitting Pulse 80 Pulse Source Pulse Oximeter Pulse Oximetry (%) 97 Oxygen Delivery Method Room Air Intake Visit Reasons: f/u DM Intake Note: Patient is here to follow up on DM. Request for diabetes testing supplies. Requesting a referral to eye Dr for diabetes check and blurry eyes Deckhand Fishing Vessel Required: No Nutrient Management Specialist: Not Required per policy Accompanied by: Self / Same As Patient Allergies aspirin [ASPIRIN] Allergy (Unknown, Verified 08/04/23 09:38) ITCHY, itchy/HIVES Tobacco use date assessed: 08/04/23 Dental Screening Dental Screen Date: 08/04/23 Did you have a dental visit in the last 12 months?: No Did you have a dental problem in the last 6 months where you did not have access to dental care?: No Was dental information given to patient?: Patient has dentist HPI f/u DM HPI Details 43 yr old male presents to the office to discuss his medical issues. I will be taking over his care as his PCP has left the practice. PMH significant for major depression and diabetes. He sees a psychiatrist and compliant with medications. Patient has an upcoming eye exam. [facility] Medical History (Updated 08/04/23 @ 17:46 by Jorge Chowdhury MD) Depression Encounter to establish care COVID-19 Anxiety HTN (hypertension) Seizure Asthma Surgical History Hx of colonoscopy History of esophagogastroduodenoscopy (EGD) History of tonsillectomy History of eye surgery Family History Maternal Grandfather Prostate cancer Colon cancer Father Seizures History of heart artery stent Mother Diabetes Hypertension Social History Housing: Apartment Alcohol intake: never Patient Tobacco Use Status: Former Tobacco user Years Smoked: 10 yrs, quit 2020 e-Cigarette/Vaping Use: Never Used Second Hand Smoke Exposure: No service: No Current occupational status: unemployed Cognitive needs: No Hearing needs: No Vision needs: Yes (glasses) Questionnaire PHQ-9 Over the last 2 weeks, how often have you been bothered by any of the following problems? 1. Little interest or pleasure in doing things: several days 2. Feeling down, depressed, or hopeless: nearly every day 3. Trouble falling or staying asleep, or sleeping too much: not at all 4. Feeling tired or having little energy: several days 5. Poor appetite or overeating: nearly every day 6. Feeling bad about yourself - or that you are a failure or have let yourself or your family down: several days 7. Trouble concentrating on things, such as reading the newspaper or watching television: nearly every day 8. Moving or speaking so slowly that other people could have noticed. Or the opposite - being so fidgety or restless that you have been moving around a lot more than usual: several days 9. Thoughts that you would be better off or of hurting yourself in some way: not at all Total score: 13 Source: Developed by Drs. Zac Cao, Caprice Mccord, Max Fletcher and colleagues, with an educational timbo from [employer]. Thrive Questionnaire Date Thrive assessed: 08/04/23 I am a: Patient What is your living situation today?: I have a steady place to live Within the past 12 months, did the food you bought not last and you didn't have the money to get more?: Never true Within the past 12 months, did you worry whether your food would run out before you got money to buy more?: Never true Do you have trouble paying for medicines?: No Do you have trouble getting transportation to medical appointments?: No Do you have trouble paying your heating and electricity bill?: No Do you have trouble taking care of your child, family member or friend?: No Do you have trouble with day-to-day activities such as bathing, preparing meals, shopping, managing finances, etc.?: No Are you currently unemployed and looking for a job?: No Are you interested in more education?: No Currently or been in a relationship where the following occur: no concerns reported THRIVE Score: 0 AUDIT C Alcohol Use Questionnaire (AUDIT-C) 1. How often do you have a drink containing alcohol?: Never Total Score: 0 MOOK-7 AMB Questionnaire MOOK-7 Date MOOK - 7 assessed: 08/04/23 Feeling nervous, anxious, or on edge: 3 = Nearly every day Not being able to stop or control worryin = More than half the days Worrying too much about different things: 2 = More than half the days Trouble relaxin = Nearly every day Being so restless that it is hard to sit still: 3 = Nearly every day Becoming easily annoyed or irritable: 0 = Not at all Feeling afraid as if something awful might happen: 1 = Several days Total MOOK-7 score (0-4 normal; 5-9 mild; 10-14 moderate; 15-21 severe): 14 Source: Developed by Drs. Zac Cao, Caprice Mccord, Max Fletcher and colleagues, with an educational timbo from [employer]. Physical exam (Primary Care) Vital Signs: Last Vital Signs Pulse 80 08/04/23 09:39 BP 110/70 08/04/23 09:39 Pulse Ox 97 08/04/23 09:39 Oxygen Delivery Method Room Air 08/04/23 09:39 BMI result Body Mass Index 36.9 BMI Assessment/Plan discussion: High (1 lb per week weight loss suggested.) BMI High, discussed plan: lifestyle, weight reduction and dietary Tobacco/Smoking Status: Tobacco use Status Tobacco use date assessed 08/04/23 08/04/23 09:53 Patient Tobacco Use Status Former Tobacco user 08/04/23 09:36 e-Cigarette/Vaping Use Never Used 08/04/23 09:53 PHQ-9: PHQ-9 Score PHQ-9: Total score 13 08/04/23 10:28 Thrive Assessment: Date of Thrive Assessment Date Thrive assessed 08/04/23 08/04/23 09:53 Currently or been in a relationship where the following occur: no concerns reported Const General: cooperative and healthy appearing Nutritional Appearance: well nourished Orientation/consciousness: patient oriented x3 Limitations: no limitations HENMT Head: Yes normal to inspection Eyes General: appearance normal, both eyes and all related structures Neck Neck: Yes normal visual inspection Chest Chest palpation & inspection: normal palpation of entire chest wall Resp Effort & Inspection: normal respiratory effort Neuro General: patient oriented x3 Results AMB Hemoglobin A1c AMB Hemoglobin A1c 7.2 % Last Edit by SOMMER Shepard on 08/04/23 09:55 Results Reviewed Results Reviewed: Laboratory Last Values Hgb A1c (Clinic) 7.2 % (4.0-6.0) H 08/04/23 09:36 Assessment and Plan Assessment & Plan (1) New onset type 2 diabetes mellitus: Comment: has appt with nutrition Code(s): E11.9 - Type 2 diabetes mellitus without complications Plan: A1c is 7.2. Continue medications at same range. Blood work has been ordered. Patient was advised to get an eye exam. (2) Depression: Code(s): F32.A - Depression, unspecified Qualifiers: Depression Type: other depression Qualified Code(s): F32.89 - Other specified depressive episodes Plan: His medications were reviewed. Continue current medications and follow-up under the care of the psychiatrist. Orders: Orders AMB Hemoglobin A1c Today E11.9 - Type 2 diabetes mellitus without complications Medications: Refilled cholecalciferol (vitamin D3) 25 mcg PO DAILY 90 tabs 0RF R79.89 - Other specified abnormal findings of blood chemistry pantoprazole 20 mg PO BID 2 weeks 28 tabs 0RF metformin ER 500 mg PO BID 60 tabs 2RF E11.9 - Type 2 diabetes mellitus without complications Discontinued hydrocortisone 2.5% (Proctosol HC) Discontinued Reason: Doctor's Order 1 appl [place] BEDTIME PRN 30 grams 3RF hemorrhoids bisacodyl (Dulcolax (bisacodyl)) take at noon the day before colonoscopy Discontinued Reason: Doctor's Order 20 mg (4 x 5 mg) PO ONCE 1 day 4 tabs 0RF Coding Level of Care Code Est Pt Level 4 (07936) Diagnoses New onset type 2 diabetes mellitus E11.9 Other depression F32.89 Depression Type: other depression
[2023-08-04 09:39] VITALS: BP 110/70; PULSE 80; O2SAT 97; BMI 36.9
== END 2023-08-04 10:36 | disposition home or self-care (01) ==
PROVIDERS: PCP Nurse Practitioner Family; Visit Provider Internal Medicine
DX: E11.9 Type 2 diabetes mellitus without complications (principal); F32.89 Other specified depressive episodes
CPT/HCPCS: 83036; 99214

== ENCOUNTER 2023-08-05 10:44 | Outpatient (AMB) | payer OTHER, SELFPAY ==
--- NOTE | 2023-08-05 11:11 | MHC.OFFVIS ---
Intake Vital Signs 08/05/23 11:21 Height 5 ft 8 in Weight 243 lb 2 oz BMI 37.0 BP 130/90 H Blood Pressure Location Lt brachial Position Sitting Pulse 84 Pulse Source Pulse Oximeter Pulse Oximetry (%) 97 Oxygen Delivery Method Room Air Intake Visit Reasons: 4m -Convulsion-Confirmed Intake Note: Patient presents for four month F/u Patient is stuttering a lot while having conversations, friends/family members notice he blanks out which he becomes non verbal and absent stares. lots of confusion in mind. Allergies aspirin [ASPIRIN] Allergy (Unknown, Verified 08/05/23 11:13) ITCHY, itchy/HIVES HPI HPI Comments History of Present Illness Details 43 y/o male comes for follow up of seizures. Pt reports he has not have actual seizure activity since September,. He started having seizures about 12 years ago. The first seizure was when he was shopping with his . He suddenly felt nauseous, dizzy, confused, blurry vision and had a witnessed clonic-tonic seizures with tongue biting, urinary incontinence. He started having 1-2 seizures a week for 1 year. He was seeing Dr. Callejas. He says after his first year his seizures became milder and less frequent. He stopped taking Depakote and seeing his neurologist about 5 years ago. His last seizure was 22 mths ago. However, he reports seizure like feeling. He had couple of episodes of staring wall, did not respond to others, and he could not remember that episodes. Lately, he experiences difficulty thinking process, forgetting words, stuttering, confused, and that feels like after having seizure. He tried Keppra in the past, and it caused mood changes, less interesting and he did not want to do anything. Depakote worked fine. EEG result reviewed. This waking EEG is within normal limits. Brain MRI result reviewed. No structural epileptogenic lesion within limitations of a noncontrast. 1.5 Margoth examination. Slight increase in mild lateral and third ventriculomegaly for age suggest progressive mild volume loss . [facility] Medical History (Updated 08/12/23 @ 17:39 by José Miguel Green CNP) Depression Encounter to establish care COVID-19 Anxiety HTN (hypertension) Seizure Asthma Surgical History Hx of colonoscopy History of esophagogastroduodenoscopy (EGD) History of tonsillectomy History of eye surgery Family History Maternal Grandfather Prostate cancer Colon cancer Father Seizures History of heart artery stent Mother Diabetes Hypertension Social History Housing: Apartment Alcohol intake: never Patient Tobacco Use Status: Former Tobacco user Years Smoked: 10 yrs, quit 2020 e-Cigarette/Vaping Use: Never Used Second Hand Smoke Exposure: No service: No Current occupational status: unemployed Cognitive needs: No Hearing needs: No Vision needs: Yes (glasses) Review of Systems Const All systems reviewed & are unremarkable except as noted in HPI and below Physical Exam Vital Signs: Last Vital Signs Pulse 84 08/05/23 11:21 BP 130/90 H 08/05/23 11:21 Pulse Ox 97 08/05/23 11:21 Oxygen Delivery Method Room Air 08/05/23 11:21 BMI result Body Mass Index 37.0 Const General: cooperative and comfortable Nutritional Appearance: obese Orientation/consciousness: patient oriented x3 Eyes Pupils: Equal, round and reactive pupils present Neuro General: patient oriented x3, tone normal, moves all extremities and no focal motor deficits Cranial nerves: Yes Facial sensation intact/muscles of mastication intact, Yes Equal, round and reactive pupils present, Yes Bilaterally intact EOM present, Yes Nystagmus not present, Yes Normal facial strength present, Yes Midline tongue present and Yes Symmetric palate elevation present Cognition (Neuro): normal cognition Gait exam (Neuro): Normal gait present Motor exam (neuro): 5/5 motor strength present throughout and Normal motor muscle tone present throughout Deep tendon reflexes (DTR's): Right triceps reflex intensity grade: 1+, Left triceps reflex intensity grade: 1+, Rt Biceps (C5, C6): 1+, Left biceps reflex intensity grade: 1+, Right brachioradialis reflex intensity grade: 1+, Left brachioradialis reflex intensity grade: 1+, Right patellar reflex intensity grade: 1+ and Left patellar reflex intensity grade: 1+ Coordination: [id number] test normal Assessment & Plan Assessment & Plan (1) Seizure: Comment: Last episode 22 months ago Code(s): R56.9 - Unspecified convulsions Plan I will reevaluate him with 48 hrs EEG. will consider adding an anticonvulsant, probably Depakote. Advised patient Not to Drive. Orders: Orders EEG awake and asleep 08/05/23 R56.9 - Unspecified convulsions Coding Level of Care Code Est Pt Level 4 (07498) Diagnoses Seizure R56.9
[2023-08-05 11:21] VITALS: BP 130/90; PULSE 84; O2SAT 97; BMI 37.0
== END 2023-08-05 11:47 | disposition home or self-care (01) ==
PROVIDERS: PCP Nurse Practitioner Family; Visit Provider Nurse Practitioner Family
DX: R56.9 Unspecified convulsions (principal)
CPT/HCPCS: 99214

== ENCOUNTER → 2023-08-05 10:44 | Outpatient (BNVA) | payer OTHER, SELFPAY | PROVIDERS: PCP Nurse Practitioner Family; Visit Provider Nurse Practitioner Family | DX: R56.9 Unspecified convulsions (principal) | CPT/HCPCS: 99212 ==

== ENCOUNTER 2023-08-11 08:02 | Outpatient (REF) | payer OTHER, SELFPAY ==
[2023-08-11 08:33] LABS: Hematocrit 44.3 % (42.0-52.0); Hemoglobin 14.8 g/dl (14.0-18.0); Mean Corpuscular HGB Conc 33.4 g/dl (31.0-36.0); Mean Corpuscular Hemoglobin 27.3 pg (27.0-33.0); Mean Corpuscular Volume 81.6 fL (80.0-98.0); Mean Platelet Volume 9.6 fL (9.4-12.4); Platelet Count 284 X10*3/uL (160-400); Red Blood Count 5.43 X10*6/uL (4.60-5.80); Red Cell Distribution Width 13.4 % (11.0-16.0); White Blood Count 7.4 X10*3/uL (4.8-10.8)
[2023-08-11 08:42] LABS: Estimated Average Glucose 154 mg/dL
[2023-08-11 09:14] LABS: Alanine Aminotransferase 30 U/L (0-40); Albumin Level 4.3 g/dL (3.5-5.0); Alkaline Phosphatase 80 U/L (39-117); Anion Gap 10 (12-20); Aspartate Amino Transferase 17 U/L (5-37); Bilirubin Direct 0.1 mg/dL (0.0-0.5); Bilirubin Total 0.4 mg/dL (0.0-1.0); Blood Urea Nitrogen 16 mg/dL (9-16); Calcium 9.3 mg/dL (8.4-10.2); Carbon Dioxide 26 mmol/L (22-29); Chloride 106 mmol/L (96-108); Cholesterol 210 mg/dL (<200); Estimated Glomerular Filt Rate > 60; Glucose Random 150 mg/dL (60-115); HDL Cholesterol 43 mg/dL (>40); LDL Cholesterol Calculated 105 mg/dL (<100); Potassium 3.9 mmol/L (3.3-5.1); Sodium 138 mmol/L (135-145); Total Protein 7.5 g/dL (6.5-8.0); Triglycerides 314 mg/dL (<150)
[2023-08-11 09:32] LABS: Thyroid Stimulating Hormone 1.68 uIU/mL (0.32-4.0)
[2023-08-11 09:43] LABS: Appearance Urine Clear; Color Urine Yellow; Glucose Urine UA Negative (Negative); Leukocyte Esterase Urine Negative (Negative); Nitrite Urine Negative (Negative); PH 5.5 (5.0-9.0); Specific Gravity - Urine >= 1.030 (1.005-1.025); Urine Blood Negative (Negative); Urine Ketones Negative (Negative); Urine Protein Negative (Neg-Trace)
[2023-08-11 10:19] LABS: Creatinine Urine 220.05 mg/dL; Microalbum/Creatinine Ratio Ur 4.5 ug/mg cr (<30)
== END 2023-08-11 08:03 | disposition home or self-care (01) ==
LOC: HO.LAB 08:02
PROVIDERS: PCP Internal Medicine; Visit Provider Internal Medicine
DX: I10 Essential (primary) hypertension (principal); F41.9 Anxiety disorder, unspecified
CPT/HCPCS: 36415; 80048; 80061; 80076; 81003; 82043; 82570; 83036; 84443; 85027

== ENCOUNTER 2023-09-11 06:28 | Outpatient (REF) | payer OTHER, SELFPAY ==
--- NOTE | 2023-09-11 06:31 | EEG_ITS ---
FINDINGS: The waking background activity consists of low voltage fast frequencies seen diffusely intermixed with a low voltage posterior 10 hertz alpha frequency. Drowsiness is characterized with diffuse theta slowing. During sleep, symmetrical frontocentral sleep spindles and vertex sharp transients that open to both hemispheres. Some posterior sharp waves are seen during drowsiness and sleep. Photic stimulation and hyperventilation are without activation. No focal, lateralizing, or paroxysmal discharges are seen. IMPRESSION: This awake and sleep EEG is within normal limits. MD CHARIS Gale/TANNER / [id number]
== END 2023-09-11 06:29 | disposition home or self-care (01) ==
LOC: HO.NEURO 06:28
PROVIDERS: PCP Internal Medicine; Visit Provider Nurse Practitioner Family
DX: R56.9 Unspecified convulsions (principal)
CPT/HCPCS: 95819

== ENCOUNTER 2023-10-06 12:51 | Outpatient (AMB) | payer OTHER, SELFPAY ==
--- NOTE | 2023-10-06 13:22 | A.OFFVIS_ITS ---
Vital Signs 10/06/23 13:26 Height 5 ft 8 in Weight 237 lb 4 oz BMI 36.1 BP 132/90 H Blood Pressure Location Lt brachial Position Sitting Pulse 72 Pulse Source Pulse Oximeter Pulse Oximetry (%) 98 Oxygen Delivery Method Room Air Intake Visit Reasons: 2 mo f/u - CONF w/address Intake Note: Patient presents for 2 months F/U. Loosing his eye sight and feeling very tired. Allergies aspirin [ASPIRIN] Allergy (Unknown, Verified 11/04/23 10:16) ITCHY, itchy/HIVES HPI Comments Details: 43 y/o male comes for follow up of seizures. Pt reports he has not have actual seizure activity since September,. He started having seizures about 12 years ago. The first seizure was when he was shopping with his . He suddenly felt nauseous, dizzy, confused, blurry vision and had a witnessed clonic-tonic seizures with tongue biting, urinary incontinence. He started having 1-2 seizures a week for 1 year. He was seeing Dr. Callejas. He says after his first year his seizures became milder and less frequent. He stopped taking Depakote and seeing his neurologist about 5 years ago. However, he had seizure like feeling. He had couple of episodes of staring wall, did not respond to others, and he could not remember that episodes. EEG result was normal and he had a repeat 48 hrs EEG. 48 hrs awake and sleep EEG result was within normal limit. Lately, he experiences difficulty thinking process, forgetting words, stuttering, confused, and that feels like after having seizure. He tried Keppra in the past, and it caused mood changes, less interesting and he did not want to do anything. Depakote worked fine. Pt reports he does not sleep well, having non refreshing sleep. Tae snoring. Pt does not want to do sleep study at this time. Brain MRI result reviewed. No structural epileptogenic lesion within limitations of a noncontrast. 1.5 Margoth examination. Slight increase in mild lateral and third ventriculomegaly for age suggest progressive mild volume loss . [facility] Medical History (Updated 08/12/23 @ 17:39 by José Miguel Green CNP) Depression Encounter to establish care COVID-19 Anxiety HTN (hypertension) Seizure Asthma Surgical History Hx of colonoscopy History of esophagogastroduodenoscopy (EGD) History of tonsillectomy History of eye surgery Family History (Updated 10/29/23 @ 10:42 by SOMMER Shepadr) Maternal Grandfather Prostate cancer Colon cancer Father Seizures History of heart artery stent Mother Diabetes Hypertension Other Mental health disorder Social History Housing: Apartment Alcohol intake: never Patient Tobacco Use Status: Former Tobacco user Years Smoked: 10 yrs, quit 2020 e-Cigarette/Vaping Use: Never Used Second Hand Smoke Exposure: No service: No Current occupational status: unemployed Cognitive needs: No Hearing needs: No Vision needs: Yes (glasses) Review of Systems Const All systems reviewed & are unremarkable except as noted in HPI and below Physical Exam Vital Signs: Last Vital Signs Pulse 72 10/06/23 13:26 BP 132/90 H 10/06/23 13:26 Pulse Ox 98 10/06/23 13:26 Oxygen Delivery Method Room Air 10/06/23 13:26 BMI result Body Mass Index 36.1 Const General: cooperative and comfortable Nutritional Appearance: obese Orientation/consciousness: patient oriented x3 Eyes Pupils: Equal, round and reactive pupils present Neuro General: patient oriented x3, tone normal, moves all extremities and no focal motor deficits Cranial nerves: Yes Facial sensation intact/muscles of mastication intact, Yes Equal, round and reactive pupils present, Yes Bilaterally intact EOM present, Yes Nystagmus not present, Yes Normal facial strength present, Yes Midline tongue present and Yes Symmetric palate elevation present Cognition (Neuro): normal cognition Gait exam (Neuro): Normal gait present Motor exam (neuro): 5/5 motor strength present throughout and Normal motor muscle tone present throughout Deep tendon reflexes (DTR's): Right triceps reflex intensity grade: 1+, Left triceps reflex intensity grade: 1+, Rt Biceps (C5, C6): 1+, Left biceps reflex intensity grade: 1+, Right brachioradialis reflex intensity grade: 1+, Left brachioradialis reflex intensity grade: 1+, Right patellar reflex intensity grade: 1+ and Left patellar reflex intensity grade: 1+ Coordination: [id number] test normal Assessment & Plan Assessment & Plan (1) Seizure: Comment: Last episode 22 months ago Code(s): R56.9 - Unspecified convulsions Category: Medical Plan Will consider adding an anticonvulsant, probably Depakote. Also will consider to have sleep study to r/o sleep apnea. Advised patient Not to Drive. Coding Level of Care Code Est Pt Level 3 (04608) Diagnoses Seizure R56.9
[2023-10-06 13:26] VITALS: BP 132/90; PULSE 72; O2SAT 98; BMI 36.1
== END 2023-10-06 13:47 | disposition home or self-care (01) ==
PROVIDERS: PCP Nurse Practitioner Family; Visit Provider Nurse Practitioner Family
DX: R56.9 Unspecified convulsions (principal)
CPT/HCPCS: 99213

== ENCOUNTER → 2023-10-06 12:51 | Outpatient (BNVA) | payer OTHER, SELFPAY | PROVIDERS: PCP Nurse Practitioner Family; Visit Provider Nurse Practitioner Family | DX: R56.9 Unspecified convulsions (principal) | CPT/HCPCS: 99212 ==

== ENCOUNTER 2023-10-29 10:25 | Outpatient (AMB) | payer OTHER, SELFPAY ==
--- NOTE | 2023-10-29 10:32 | A.OFFPC_ITS ---
Vital Signs 10/29/23 10:35 Height 5 ft 8 in Weight 240 lb 2 oz BMI 36.5 BP 132/78 Blood Pressure Location Lt brachial Position Sitting Pulse 70 Pulse Source Pulse Oximeter Pulse Oximetry (%) 97 Oxygen Delivery Method Room Air Intake Visit Reasons: 3 month f/u Intake Note: Patient is here to follow up on DM, HTN, Asthma. Pt requesting for OneTouch testing supply. Spark Tester Required: No Oil Well Shooter: Not Required per policy Accompanied by: Self / Same As Patient Allergies aspirin [ASPIRIN] Allergy (Unknown, Verified 11/04/23 10:16) ITCHY, itchy/HIVES Medication List - Last Reconciled 11/04/23 by Jorge Chowdhury MD albuterol sulfate 90 mcg/actuation (Ventolin HFA) 2 puffs inhalation Q4-6H PRN buspirone 0 mg PO DAILY cholecalciferol (vitamin D3) 25 mcg PO DAILY clonazepam 0.5 mg PO BID PRN clonidine HCl 0.1 mg PO BEDTIME lisinopril 5 mg PO DAILY metformin ER 500 mg PO BID pantoprazole 20 mg PO BID 2 weeks sertraline 200 mg PO BEDTIME Tobacco use date assessed: 10/29/23 Dental Screening Dental Screen Date: 08/04/23 HPI 3 month f/u HPI Details 43 yr old male presents to the office fo r a follow up on his diabetes. A1c has worsened from 7.2 to 8.8. Patient feels depressed and tired and starts eating unhealthy food. He stops exercising. He he had not been taking the metformin either for some time. Reports symptoms of blurred vision and headache. Patient has a psychiatrist whom he sees. [facility] Medical History (Updated 08/12/23 @ 17:39 by José Miguel Green CNP) Depression Encounter to establish care COVID-19 Anxiety HTN (hypertension) Seizure Asthma Surgical History Hx of colonoscopy History of esophagogastroduodenoscopy (EGD) History of tonsillectomy History of eye surgery Family History (Updated 10/29/23 @ 10:42 by SOMMER Shepard) Maternal Grandfather Prostate cancer Colon cancer Father Seizures History of heart artery stent Mother Diabetes Hypertension Other Mental health disorder Social History Housing: Apartment Alcohol intake: never Patient Tobacco Use Status: Former Tobacco user Years Smoked: 10 yrs, quit 2020 e-Cigarette/Vaping Use: Never Used Second Hand Smoke Exposure: No service: No Current occupational status: unemployed Cognitive needs: No Hearing needs: No Vision needs: Yes (glasses) Questionnaire Thrive Questionnaire Date Thrive assessed: 08/04/23 MOOK-7 AMB Questionnaire MOOK-7 Date MOOK - 7 assessed: 08/04/23 Source: Developed by Drs. Zac Cao, Caprice Mccord, Max Fletcher and colleagues, with an educational timbo from [employer]. Physical exam (Primary Care) Vital Signs: Last Vital Signs Pulse 70 10/29/23 10:35 BP 132/78 10/29/23 10:35 Pulse Ox 97 10/29/23 10:35 Oxygen Delivery Method Room Air 10/29/23 10:35 BMI result Body Mass Index 36.5 Tobacco/Smoking Status: Tobacco use Status Tobacco use date assessed 10/29/23 10/29/23 10:44 Patient Tobacco Use Status Former Tobacco user 10/29/23 10:32 e-Cigarette/Vaping Use Never Used 10/29/23 10:32 Thrive Assessment: Date of Thrive Assessment Date Thrive assessed 08/04/23 10/29/23 10:32 Const General: cooperative and healthy appearing Nutritional Appearance: well nourished Orientation/consciousness: patient oriented x3 Limitations: no limitations HENMT Head: Yes normal to inspection Eyes General: appearance normal, both eyes and all related structures Neck Neck: Yes normal visual inspection Chest Chest palpation & inspection: normal palpation of entire chest wall Resp Effort & Inspection: normal respiratory effort Neuro General: patient oriented x3 Results AMB Hemoglobin A1c AMB Hemoglobin A1c 8.8 % Last Edit by SOMMER Shepard on 10/29/23 10:44 Results Reviewed Results Reviewed: Laboratory Last Values Hgb A1c (Clinic) 8.8 % (4.0-6.0) H 10/29/23 10:33 Assessment and Plan Assessment & Plan (1) Anxiety: Code(s): F41.9 - Anxiety disorder, unspecified Plan: Patient sees Dr Kori Mckeon for care. Advised him to follow up with her (2) New onset type 2 diabetes mellitus: Comment: has appt with nutrition Code(s): E11.9 - Type 2 diabetes mellitus without complications Plan: Compliance with medications urged. Trulicity started in addition to metformin. Orders: Orders AMB Hemoglobin A1c 10/29/23 E11.9 - Type 2 diabetes mellitus without complications Medications: New dulaglutide (Trulicity) 0.75 mg (0.5 mL) subcut QWEEK 2 mL 1RF Refilled lisinopril 5 mg PO DAILY 30 tabs 3RF I10 - Essential (primary) hypertension pantoprazole 20 mg PO BID 2 weeks 28 tabs 0RF Patient Instructions: Goals: To keep A1c below 7.0 Barriers: Mental health and depression that causes him to have poor compliance Coding Level of Care Code Est Pt Level 4 (19653) Diagnoses Anxiety F41.9 New onset type 2 diabetes mellitus E11.9
[2023-10-29 10:35] VITALS: BP 132/78; PULSE 70; O2SAT 97; BMI 36.5
== END 2023-10-29 11:09 | disposition home or self-care (01) ==
PROVIDERS: PCP Nurse Practitioner Family; Visit Provider Internal Medicine
DX: E11.9 Type 2 diabetes mellitus without complications (principal)
CPT/HCPCS: 83036; 99214

== ENCOUNTER 2023-12-09 07:50 | Outpatient (AMB) | payer OTHER, SELFPAY ==
[2023-12-09 07:55] VITALS: BP 130/86; BMI 35.6
--- NOTE | 2023-12-09 07:55 | MHC.PC.OV ---
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 In the last office visit, Trulicity has been added to the regimen. Patient is tolerating the medication well. He has been compliant and taking it once a week. Trying to exercise and follow a healthy diet. Checks his blood sugars and they have not been greater than 200. Anxiety symptoms are stable too on the medications prescribed. [facility] Medical History (Updated 12/09/23 @ 09:01 by Jorge Chowdhury MD) New onset type 2 diabetes mellitus Depression COVID-19 Anxiety HTN (hypertension) Seizure Asthma Surgical History Hx of colonoscopy History of esophagogastroduodenoscopy (EGD) History of tonsillectomy History of eye surgery Family History Maternal Grandfather Prostate cancer Colon cancer Father Seizures History of heart artery stent Mother Diabetes Hypertension Other Mental health disorder Social History Housing: Apartment Alcohol intake: never Patient Tobacco Use Status: Former Tobacco user Years Smoked: 10 yrs, quit 2020 e-Cigarette/Vaping Use: Never Used Second Hand Smoke Exposure: No service: No Current occupational status: unemployed Cognitive needs: No Hearing needs: No Vision needs: Yes (glasses) Questionnaire Thrive Questionnaire Date Thrive assessed: 08/04/23 MOOK-7 AMB Questionnaire MOOK-7 Date MOOK - 7 assessed: 08/04/23 Source: Developed by Drs. Zac Cao, Caprice Mccord, Max Fletcher and colleagues, with an educational timbo from [employer]. Physical exam (Primary Care) Vital Signs: Last Vital Signs BP 130/86 12/09/23 07:55 Care Plan Goal for BP management: Blood pressure is stable. Continue current medications. BMI result Body Mass Index 35.6 BMI Assessment/Plan discussion: High (1 lb per week weight loss suggested.) BMI High, discussed plan: lifestyle, weight reduction and dietary Tobacco/Smoking Status: Tobacco use Status Tobacco use date assessed 10/29/23 12/09/23 07:59 Patient Tobacco Use Status Former Tobacco user 12/09/23 07:59 e-Cigarette/Vaping Use Never Used 12/09/23 07:59 Thrive Assessment: Date of Thrive Assessment Date Thrive assessed 08/04/23 12/09/23 07:59 Const General: cooperative and healthy appearing Nutritional Appearance: well nourished Orientation/consciousness: patient oriented x3 Limitations: no limitations HENMT Head: Yes normal to inspection Eyes General: appearance normal, both eyes and all related structures Neck Neck: Yes normal visual inspection Chest Chest palpation & inspection: normal palpation of entire chest wall Resp Effort & Inspection: normal respiratory effort Neuro General: patient oriented x3 Assessment and Plan Assessment & Plan (1) New onset type 2 diabetes mellitus: Code(s): E11.9 - Type 2 diabetes mellitus without complications Plan: Trulicity has improved his blood sugar control. I encouraged patient to check his blood sugars at different times of the day. If he starts having numbers greater than 200, he should call in for an urgent appointment. Counseling on the importance of diet and exercise done. (2) Depression: Code(s): F32.A - Depression, unspecified Qualifiers: Depression Type: other depression Qualified Code(s): F32.89 - Other specified depressive episodes Plan: Condition is stable. Continue current medications. (3) HTN (hypertension): Code(s): I10 - Essential (primary) hypertension Coding Level of Care Code Est Pt Level 4 (73314) Complex EM visit Add On G2211 Diagnoses New onset type 2 diabetes mellitus E11.9 Other depression F32.89 Depression Type: other depression HTN (hypertension) I10
== END 2023-12-09 08:42 | disposition home or self-care (01) ==
PROVIDERS: PCP Internal Medicine; Visit Provider Internal Medicine
DX: E11.9 Type 2 diabetes mellitus without complications (principal); F32.89 Other specified depressive episodes; I10 Essential (primary) hypertension
CPT/HCPCS: 99214; G2211

== ENCOUNTER 2024-01-22 07:57 | Outpatient (AMB) | payer OTHER, SELFPAY ==
[2024-01-22 07:59] VITALS: BP 128/90; PULSE 88; O2SAT 97; BMI 35.4
--- NOTE | 2024-01-22 07:59 | A.OFFPC_ITS ---
Vital Signs 01/22/24 07:59 Height 5 ft 8 in Weight 233 lb 0.5 oz BMI 35.4 BP 128/90 H Blood Pressure Location Lt brachial Position Sitting Pulse 88 Pulse Source Pulse Oximeter Pulse Oximetry (%) 97 Oxygen Delivery Method Room Air Intake Visit Reasons: pHYSICAL Intake Note: Patient is here today for a physical. Classification Case Manager Required: No Allergies aspirin [ASPIRIN] Allergy (Unknown, Verified 01/22/24 08:13) ITCHY, itchy/HIVES Medication List - Last Reconciled 01/22/24 by Juli Abebe PA-C albuterol sulfate 90 mcg/actuation (Ventolin HFA) 2 puffs inhalation Q4-6H PRN blood sugar diagnostic ([facility] Ultra Test strips) As directed twice per day blood-glucose meter ([facility] Ultra2 Meter) As directed twice per day buspirone 0 mg PO DAILY cholecalciferol (vitamin D3) 25 mcg PO DAILY clonazepam 0.5 mg PO BID PRN clonidine HCl 0.1 mg PO BEDTIME dulaglutide (Trulicity) 0.75 mg (0.5 mL) subcut QWEEK lancets ([employer] Delica Plus Lancet) As directed twice per day lisinopril 5 mg PO DAILY metformin ER 500 mg PO BID pantoprazole 20 mg PO BID 2 weeks sertraline 200 mg PO BEDTIME Tobacco use date assessed: 01/22/24 Dental Screening Dental Screen Date: 08/04/23 HPI pHYSICAL HPI Details 43-year-old male with past medical histo ry of asthma, anxiety,? hypertension, hypertriglyceridemia, diabetes mellitus, and previous H pylori infection last seen by Dr. Chowdhury 12/09/2023 coming in today for annual physical.? [facility] for diabetic eye exam 01/06/2024. During his last visit he was considered stable with his diabetes and anxiety. Colonoscopy UTD 04/2023 repeat in 5 years. Today he tells us he has been regularly checking his blood sugars which ranged between 109-150 with most values in the middle and no values below 100. He does not currently have a traffic investigator. He also mentions he has been having increased stress and notices some chest discomfort only at rest. He mentions when he is distracted the chest pain does not seem to be present. He also mentions he has been having increased acid reflux since discontinuing the pantoprazole and would like to have an additional prescription. He has not been seen by GI since being treated for H pylori and has not had a test of cure. He also mentions within the last week due to the heat he has been using his inhaler more often. FORMERLY [facility], [facility] Medical History New onset type 2 diabetes mellitus Depression COVID-19 Anxiety HTN (hypertension) Seizure Asthma Surgical History Hx of colonoscopy History of esophagogastroduodenoscopy (EGD) History of tonsillectomy History of eye surgery Family History Maternal Grandfather Prostate cancer Colon cancer Father Seizures History of heart artery stent Mother Diabetes Hypertension Other Mental health disorder Social History Housing: Apartment Alcohol intake: never Patient Tobacco Use Status: Former Tobacco user Years Smoked: 10 yrs, quit 2020 e-Cigarette/Vaping Use: Never Used Second Hand Smoke Exposure: No service: No Current occupational status: unemployed Cognitive needs: No Hearing needs: No Vision needs: Yes (glasses) Questionnaire PHQ-9 Over the last 2 weeks, how often have you been bothered by any of the following problems? 1. Little interest or pleasure in doing things: nearly every day 2. Feeling down, depressed, or hopeless: nearly every day 3. Trouble falling or staying asleep, or sleeping too much: nearly every day 4. Feeling tired or having little energy: nearly every day 5. Poor appetite or overeating: nearly every day 6. Feeling bad about yourself - or that you are a failure or have let yourself or your family down: nearly every day 7. Trouble concentrating on things, such as reading the newspaper or watching television: more than half the days 8. Moving or speaking so slowly that other people could have noticed. Or the opposite - being so fidgety or restless that you have been moving around a lot more than usual: nearly every day 9. Thoughts that you would be better off or of hurting yourself in some way: several days Total score: 24 Depression Screening Interpretation: Positive Depression Screening Done: Yes 54916 - PHQ-9 Billing: Yes Source: Developed by Drs. Zac Cao, Caprice Mccord, Max Fletcher and colleagues, with an educational timbo from delicious. Thrive Questionnaire Date Thrive assessed: 08/04/23 I am a: Patient What is your living situation today?: I have a steady place to live Within the past 12 months, did the food you bought not last and you didn't have the money to get more?: Never true Within the past 12 months, did you worry whether your food would run out before you got money to buy more?: Never true THRIVE Score: 0 AUDIT C Alcohol Use Questionnaire (AUDIT-C) 1. How often do you have a drink containing alcohol?: Never 3. How often do you have six or more drinks on one occasion?: Never Total Score: 0 MOOK-7 AMB Questionnaire MOOK-7 Date MOOK - 7 assessed: 08/04/23 Feeling nervous, anxious, or on edge: 3 = Nearly every day Not being able to stop or control worryin = Nearly every day Worrying too much about different things: 3 = Nearly every day Trouble relaxin = Nearly every day Being so restless that it is hard to sit still: 3 = Nearly every day Becoming easily annoyed or irritable: 3 = Nearly every day Feeling afraid as if something awful might happen: 3 = Nearly every day Total MOOK-7 score (0-4 normal; 5-9 mild; 10-14 moderate; 15-21 severe): 21 Source: Developed by Drs. Zac Cao, Caprice Mccord, Max Fletcher and colleagues, with an educational timbo from delicious. MOOK-7 Assessment Billing MOOK-7 Assessment Tool: MOOK-7 Assessment 49780 Review of Systems Const Denies daytime sleepiness, Denies fatigue, Denies fever(s), Denies poor appetite and Denies weakness Eyes Reports no additional complaints ENT Details: decreased hearing in left ear which has been evaluated in the past Denies dizziness, Denies nasal congestion, Denies tinnitus and Denies sore throat Card Details: mild chest discomfort at rest which go aways with activity or when he is distracted Denies syncope, Denies rapid heart rate and Denies dyspnea Resp Denies cough and Denies dyspnea GI Denies change in stool character, Reports constipation (intermittent ), Denies diarrhea, Denies nausea and Denies vomiting Denies dysuria and Denies urinary frequency Musc Reports no additional complaints Skin/Breast Reports system reviewed and no additional complaints, except as documented Neuro Reports Abnormal speech present, Denies confusion, Denies dizziness, Denies syncope and Denies weakness Psych Reports no additional complaints and Denies confusion Endo Denies fatigue Physical exam (Primary Care) Vital Signs: Last Vital Signs Pulse 88 01/22/24 07:59 BP 128/90 H 01/22/24 07:59 Pulse Ox 97 01/22/24 07:59 Oxygen Delivery Method Room Air 01/22/24 07:59 BMI result Body Mass Index 35.4 Tobacco/Smoking Status: Tobacco use Status Tobacco use date assessed 01/22/24 01/22/24 08:08 Patient Tobacco Use Status Former Tobacco user 01/22/24 08:02 e-Cigarette/Vaping Use Never Used 01/22/24 08:02 PHQ-9: PHQ-9 Score PHQ-9: Total score 13 01/22/24 08:08 Depression Screening Interpretation: Positive Thrive Assessment: Date of Thrive Assessment Date Thrive assessed 08/04/23 01/22/24 08:02 Const General: No confusion Orientation/consciousness: No confusion HENMT Head: Yes normocephalic Ears: external ears normal and TM's normal bilaterally Face and sinus: Yes normal facial exam Mouth: moist mucous membranes Throat: Yes tonsils normal Eyes Conjunctivae: conjunctivae normal Pupils: Equal, round and reactive pupils present and Pupil accommodation reflex normal Direct Ophthalmoscopy: normal light reflex Neck Neck: No lymphadenopathy Chest Chest palpation & inspection: normal inspection of the chest Resp Effort & Inspection: normal respiratory effort and no audible wheezes Auscultation: clear to auscultation bilaterally, no crackles, no wheezes and lung sounds not diminished Cardio Rate: regular rate Rhythm: regular rhythm Peripheral pulses: radial pulses present and dorsalis pedis present GI Palpation (GI): no masses Auscultation: normal bowel sounds and normoactive bowel sounds Rectal Exam - Male: Yes deferred Skin General skin exam: no rashes or lesions noted Rashes: no rashes Neuro General: No confusion Cranial nerves: Yes Equal, round and reactive pupils present, Yes Midline tongue present and Yes Ability to bilaterally elevate shoulders present Cognition (Neuro): normal cognition Speech: Abnormal speech present Gait exam (Neuro): Normal gait present Extrem General: Yes normal to inspection, Yes full ROM and No edema Psych Appearance: grossly normal Mental Status: mental status grossly normal Speech and movement: Normal speech and movement present Affect: normal affect Attitude: cooperative Thought process: Normal thought process present Thought content: Normal thought content present Insight: Good insight present (Psych) Judgement: Good judgement present (Psych) Results AMB Hemoglobin A1c AMB Hemoglobin A1c 6.2 % Last Edit by SOMMER Ramon on 01/22/24 08:14 Assessment and Plan Assessment & Plan (1) Adult general medical exam: Code(s): Z00.00 - Encounter for general adult medical examination without abnormal findings Plan: Patient is stable on medications. Updated labs requested to follow up on elevated Lipids. Encourage healthy diet and exercise. (2) New onset type 2 diabetes mellitus: Code(s): E11.9 - Type 2 diabetes mellitus without complications Plan: A1c 6.1 today which is within the goal range. Continue metformin and Trulicity. Decrease the amount of carbohydrates such as pasta, bread, rice, and potatoes and limit the amount of sweets. Although fruits are generally healthy they should be eaten in moderation as they are still high in sugar. Hemoglobin A1c goal of less than 7.0. Continue on current medication and continue to monitor blood sugars. If blood sugars below 100 please call the office. (3) Depression: Code(s): F32.A - Depression, unspecified Qualifiers: Depression Type: other depression Qualified Code(s): F32.89 - Other specified depressive episodes Plan: Sees counselor biweekly and psych on a regular basis. Stable on Sertraline, Buspar, Clonazepam, and Clonidine continue to follow up with psych and counselor. (4) H. pylori infection: Comment: H pylori was positive - completed 2 weeks course antibiotics Code(s): A04.8 - Other specified bacterial intestinal infections Plan: Patient completed endoscopy and colonoscopy with biopsy 04/2023. Was scheduled for H.Pylori test of cure for which was not completed. No symptoms of bloating, abdominal pain or early satiety at this time. Still having symptoms of reflux, will resend Pantoprazole at patient request. Advised patient to follow up with GI. (5) Hypertriglyceridemia: Code(s): E78.1 - Pure hyperglyceridemia Plan: Avoid foods that are high in cholesterol such as red meat, fried foods, eggs and baked goods. Triglyceride goal of less than 150 and LDL goal of less than 100. Not currently on medications. Will reorder labs and follow up in 3 months to discuss further treatment. (6) HTN (hypertension): Code(s): I10 - Essential (primary) hypertension Plan: Continue on current blood pressure medication. Avoid salt intake and encourage healthy diet and regular exercise. (7) Asthma: Code(s): J45.909 - Unspecified asthma, uncomplicated Plan: Asthma currently controlled on present medications, denies nighttime awakenings. Has been using his inhaler more frequently due to the heat and is not interested in adding medications at this time. Continue on Ventolin PRN.? Avoid triggers such as allergies. (8) Seizure: Comment: Last episode 22 months ago Code(s): R56.9 - Unspecified convulsions Plan: Has not had a seizure in almost two years, is not currently on medication. Patient follows with Neurology with next appointment February 2024. (9) Chest discomfort: Code(s): R07.89 - Other chest pain Plan: Chest discomfort primarily when stressed and at rest. Pain typically dissipates when he is distracted or exercising. Will order stress test and EKG to evaluate chest discomfort. Plan Thank you for allowing me to participate in the care of this patient. I personally spent 45 minutes reviewing, examining and charting on this patient. Orders: Orders Lipid Panel Today Z00.00 - Encounter for general adult medical examination without abnormal findings CA stress test Today R07.89 - Other chest pain Comprehensive Met. Panel Today Z00.00 - Encounter for general adult medical examination without abnormal findings ECG 12 lead EKG Today R07.89 - Other chest pain AMB Hemoglobin A1c Today E11.9 - Type 2 diabetes mellitus without complications Referrals Speech and Hearing Referral H91.92 - Unspecified hearing loss, left ear Medications: New pantoprazole 20 mg PO DAILY 30 tabs 2RF Discontinued pantoprazole Discontinued Reason: Patient no longer taking 20 mg PO BID 2 weeks 28 tabs 0RF Coding Level of Care Code Est Pt Prev Care 40-64y(30546) Diagnoses Adult general medical exam Z00.00 New onset type 2 diabetes mellitus E11.9 Other depression F32.89 Depression Type: other depression H. pylori infection A04.8 Hypertriglyceridemia E78.1 HTN (hypertension) I10 Asthma J45.909 Seizure R56.9 Chest discomfort R07.89 Additional Codes MOOK-7 Assessment Billing - MOOK-7 Assessment Tool: MOOK-7 Assessment 54139 ([id number])
== END 2024-01-22 08:36 | disposition home or self-care (01) ==
PROVIDERS: PCP Internal Medicine
DX: Z00.00 Encounter for general adult medical examination without abnormal findings (principal); E11.9 Type 2 diabetes mellitus without complications; R56.9 Unspecified convulsions; F32.89 Other specified depressive episodes; A04.8 Other specified bacterial intestinal infections; E78.1 Pure hyperglyceridemia; I10 Essential (primary) hypertension; J45.909 Unspecified asthma, uncomplicated; R07.89 Other chest pain
CPT/HCPCS: 83036; 99396

== ENCOUNTER 2024-01-22 09:45 | Outpatient (REF) | payer OTHER, SELFPAY ==
[2024-01-23 09:36] LABS: H Pylori Breath Test Negative (Negative)
== END 2024-01-22 09:46 | disposition home or self-care (01) ==
LOC: HO.LNP 09:45
PROVIDERS: PCP Internal Medicine; Visit Provider Physician Assistant
DX: R07.89 Other chest pain (principal); A04.8 Other specified bacterial intestinal infections
CPT/HCPCS: 83013; 99211

== ENCOUNTER 2024-01-22 09:45 | Outpatient (AMB) | payer OTHER, SELFPAY ==
--- NOTE | 2024-01-22 09:58 | AM.OFFVISNUR ---
Intake Visit Reasons: H.Pylori Allergies aspirin [ASPIRIN] Allergy (Unknown, Verified 01/22/24 08:13) ITCHY, itchy/HIVES Nursing Note Patient presents for collection of H Pylori breath test. Patient has been fasting for 1 hour (nothing to eat, drink, no chewing gum or smoking) has not taken any antacid medication for at least 2 weeks and has no allergies to artificial sweeteners.?? Results AMB Hemoglobin A1c AMB Hemoglobin A1c 6.2 % Last Edit by SOMMER Ramon on 01/22/24 08:14 Assessment & Plan Assessment & Plan (1) H. pylori infection: Comment: H pylori was positive - completed 2 weeks course antibiotics Code(s): A04.8 - Other specified bacterial intestinal infections Category: Medical Plan Patient presents for collection of H Pylori breath test. Patient has been fasting for 1 hour (nothing to eat, drink, no chewing gum or smoking) has not taken any antacid medication for at least 2 weeks and has no allergies to artificial sweeteners.???This test checks for an overgrowth of bacteria in your stomach. We all have bacteria but some may have more than others. It is treatable. if the test comes back negative there is nothing else to do. If the test result is positive we will treat you with 2 antibiotics and a medication to decrease the acid in your stomach (PPI) for 2 weeks. Two weeks after you have completed the treatment we will retest you to make sure the overgrowth has resolved. Orders: Orders H Pylori Breath Test Today A04.8 - Other specified bacterial intestinal infections, R07.89 - Other chest pain Patient Instructions: Process for specimen collection and reason for testing was explained to the patient. Specimen collection. Patient instructed to take a deep breath and then exhale into the blue bag, filling it up as much as possible. Patient instructed to drink a mixture of water and the artificial sweetener with a straw. A 15 minute wait period was observed. Patient instructed to take a deep breath and then exhale into the pink bag, filling it up as much as possible.??
== END 2024-01-22 10:03 | disposition home or self-care (01) ==
PROVIDERS: PCP Internal Medicine; Visit Provider Physician Assistant
DX: A04.8 Other specified bacterial intestinal infections (principal)

== ENCOUNTER → 2024-02-02 08:42 | Outpatient (REF) | payer OTHER, SELFPAY ==
--- NOTE | 2024-02-02 08:44 | CA_ITS ---
Acquisition Time: 2024-02-02 09:25:22 Total Exercise Time: 00:09:25 Test Indications: CP Medications: SEE H Protocol: MANOJ Max HR: 160 BPM 91% of Pred: 175 BPM Max BP: 200/068 mmHG Max Work Load: 10.7 METS Exercise stress test exercise 9 min 25 sec of Manoj protocol achieving 87% MPHR, with 3/10 left chest pinch. intermitent then 5/10, with mild SOB, with isolatated PVCs and PACs, with HTN response to exercise, with downslioping in leads aVF, V5-V6. Chest pain resolved within 1 min affter occurance. Not correlated with arrhythmias. Test reviewed with Dr. Mckeon. Recomend further testing c( echo and stress echo) and blood pressure control. Referred By: Juli Abebe Overread By: Chrissy Real
--- NOTE | 2024-02-02 08:44 | ECG_ITS ---
Test Reason : CHEST PAIN Blood Pressure : / mmHG Vent. Rate : 062 BPM Atrial Rate : 062 BPM P-R Int : 152 ms QRS Dur : 098 ms QT Int : 414 ms P-R-T Axes : 014 045 017 degrees QTc Int : 420 ms Normal sinus rhythm Normal ECG When compared with ECG of 26-APR-2012 10:08, No significant change was found Referred By: Juli Abebe Electronically Signed By:MARIAELENA PATEL
== END ==
LOC: HO.CARD 08:42
PROVIDERS: PCP Internal Medicine
DX: R07.89 Other chest pain (principal)
CPT/HCPCS: 93005; 93017

== ENCOUNTER → 2024-02-02 08:44 | Outpatient (BNV) | payer OTHER, SELFPAY | PROVIDERS: PCP Internal Medicine; Visit Provider Internal Medicine | DX: R07.9 Chest pain, unspecified (principal); R06.02 Shortness of breath; I49.3 Ventricular premature depolarization; I49.1 Atrial premature depolarization | CPT/HCPCS: 93010; 93016; 93018 ==

== ENCOUNTER 2024-02-09 10:27 | Outpatient (AMB) | payer OTHER, SELFPAY ==
--- NOTE | 2024-02-09 11:13 | A.OFFPC_ITS ---
Vital Signs 02/09/24 11:15 Height 5 ft 8 in Weight 231 lb 0.6 oz BMI 35.1 BP 138/88 Blood Pressure Location Lt brachial Position Sitting Pulse 67 Pulse Source Pulse Oximeter Pulse Oximetry (%) 97 Oxygen Delivery Method Room Air Intake Visit Reasons: Stress Test results Regional Facilities Manager Required: No Allergies aspirin [ASPIRIN] Allergy (Unknown, Verified 02/09/24 14:04) ITCHY, itchy/HIVES Medication List - Last Reconciled 02/09/24 by Jorge Chowdhury MD albuterol sulfate 90 mcg/actuation (Ventolin HFA) 2 puffs inhalation Q4-6H PRN atorvastatin 10 mg PO BEDTIME blood sugar diagnostic ([facility] Ultra Test strips) As directed twice per day blood-glucose meter ([facility] Ultra2 Meter) As directed twice per day buspirone 0 mg PO DAILY cholecalciferol (vitamin D3) 25 mcg PO DAILY clonazepam 0.5 mg PO BID PRN clonidine HCl 0.1 mg PO BEDTIME dulaglutide (Trulicity) 0.75 mg (0.5 mL) subcut QWEEK lancets ([facility] Delica Plus Lancet) As directed twice per day lisinopril 5 mg PO DAILY metformin ER 500 mg PO BID pantoprazole 20 mg PO DAILY sertraline 200 mg PO BEDTIME Tobacco use date assessed: 01/22/24 Dental Screening Dental Screen Date: 08/04/23 HPI Stress Test results HPI Details 43-year-old male presents to the office to discuss his stress test results. Patient was reporting atypical chest pain a few weeks ago. As a result he had the stress test. Symptoms of chest pain have now subsided. He is compliant with medications and his blood sugars have decreased. FORMERLY [facility] Medical History New onset type 2 diabetes mellitus Depression COVID-19 Anxiety HTN (hypertension) Seizure Asthma Surgical History Hx of colonoscopy History of esophagogastroduodenoscopy (EGD) History of tonsillectomy History of eye surgery Family History Maternal Grandfather Prostate cancer Colon cancer Father Seizures History of heart artery stent Mother Diabetes Hypertension Other Mental health disorder Social History Housing: Apartment Alcohol intake: never Patient Tobacco Use Status: Former Tobacco user Years Smoked: 10 yrs, quit 2020 e-Cigarette/Vaping Use: Never Used Second Hand Smoke Exposure: No service: No Current occupational status: unemployed Cognitive needs: No Hearing needs: No Vision needs: Yes (glasses) Questionnaire Thrive Questionnaire Date Thrive assessed: 08/04/23 AUDIT C Alcohol Use Questionnaire (AUDIT-C) 1. How often do you have a drink containing alcohol?: Never 3. How often do you have six or more drinks on one occasion?: Never Total Score: 0 MOOK-7 AMB Questionnaire MOOK-7 Date MOOK - 7 assessed: 08/04/23 Source: Developed by Drs. Zac Cao, Caprice Mccord, Max Fletcher and colleagues, with an educational timbo from [employer]. Physical exam (Primary Care) Vital Signs: Last Vital Signs Pulse 67 02/09/24 11:15 BP 138/88 02/09/24 11:15 Pulse Ox 97 02/09/24 11:15 Oxygen Delivery Method Room Air 02/09/24 11:15 BMI result Body Mass Index 35.1 Tobacco/Smoking Status: Tobacco use Status Tobacco use date assessed 01/22/24 02/09/24 11:15 Patient Tobacco Use Status Former Tobacco user 02/09/24 11:15 e-Cigarette/Vaping Use Never Used 02/09/24 11:15 Thrive Assessment: Date of Thrive Assessment Date Thrive assessed 08/04/23 02/09/24 11:15 Const General: cooperative and healthy appearing Nutritional Appearance: well nourished Orientation/consciousness: patient oriented x3 Limitations: no limitations HENMT Head: Yes normal to inspection Eyes General: appearance normal, both eyes and all related structures Neck Neck: Yes normal visual inspection Chest Chest palpation & inspection: normal palpation of entire chest wall Resp Effort & Inspection: normal respiratory effort Neuro General: patient oriented x3 Assessment and Plan Assessment & Plan (1) Atypical chest pain: Code(s): R07.89 - Other chest pain Plan: Stress test results reviewed with patient. They are in range. Statins have been added to the regimen. Medications: New atorvastatin 10 mg PO BEDTIME 90 tabs 1RF Coding Level of Care Code Est Pt Level 3 (40649) Complex EM visit Add On G2211 Diagnoses Atypical chest pain R07.89
[2024-02-09 11:15] VITALS: BP 138/88; PULSE 67; O2SAT 97; BMI 35.1
== END 2024-02-09 13:08 | disposition home or self-care (01) ==
PROVIDERS: PCP Internal Medicine; Visit Provider Internal Medicine
DX: R07.89 Other chest pain (principal)
CPT/HCPCS: 99213; G2211

== ENCOUNTER 2024-03-08 12:21 | Outpatient (AMB) | payer OTHER, SELFPAY ==
--- NOTE | 2024-03-08 12:41 | MHC.OFFVIS ---
Vital Signs 03/08/24 12:42 Height 5 ft 8 in Weight 231 lb BMI 35.1 BP 116/78 Blood Pressure Location Rt brachial Position Sitting Respiration 16 Pulse 73 Pulse Source Pulse Oximeter Pulse Oximetry (%) 97 Oxygen Delivery Method Room Air Intake Visit Reasons: Follow up-CONF Intake Note: Pt presents to the office for a 6 month follow up for seizure disorder. 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 Required: No Allergies aspirin [ASPIRIN] Allergy (Unknown, Verified 03/08/24 12:41) ITCHY, itchy/HIVES Medication List - Last Reconciled 03/08/24 by LUCY Aguilera albuterol sulfate 90 mcg/actuation (Ventolin HFA) 2 puffs inhalation Q4-6H PRN atorvastatin 10 mg PO BEDTIME blood sugar diagnostic (Mee[employer]eeuch Ultra Test strips) As directed twice per day blood-glucose meter (MeeVeeuch Ultra2 Meter) As directed twice per day buspirone 0 mg PO DAILY cholecalciferol (vitamin D3) 25 mcg PO DAILY clonazepam 0.5 mg PO BID PRN clonidine HCl 0.1 mg PO BEDTIME dulaglutide (Trulicity) 0.75 mg (0.5 mL) subcut QWEEK lancets (Mode De FaireTouch Delica Plus Lancet) As directed twice per day lisinopril 5 mg PO DAILY metformin ER 500 mg PO BID pantoprazole 20 mg PO DAILY sertraline 200 mg PO BEDTIME HPI Comments Details: 43-yr-old male presents for f/u visit. Pt denies any significant interval medical changes. Pt reports he recently had one episode where he woke up around 5am, he was shaking, he could not get up, he felt stuck, vision was blurry, he started yelling. Afterwards, he had a massive headache , neck tightness, muscular leg pain, jaw pain. He could not stand up right away. He did not have tongue biting/incontinence. He does not recall any triggers, stress, alcohol/drug use- does not use these. He thought made it was a nightmare- has a h/o nightmares- but not like this before. He describes the massive headache, as a pinching nerve pain from right neck up into his right upper occipital region as well as left upper cervical to occipital region tingling, which has reoccurred twice again (not a/w shaking/LOC). He is trying to eat better. He does ride a bike on a [place] or in the [place] w/ a helmet- and always accompanied by his [id number]. He is NOT driving. He has safety alerts on him. Presenting HPI: He started having seizures in ~ . The first seizure was when he was shopping with his . He suddenly felt nauseous, dizzy, confused,blurry vision and had a witnessed clonic tonic seizures with tongue biting , urinary incontinence . He woke up in ER , he had headache and was very tired , confused. He started having 1-2 seizures a week for 1 year. He was seeing Dr. Callejas. He had 1 episode when he was driving. He lost his license and job.He says after his first year his seizures became milder and less frequent. He stopped taking depakote and seeing his neurologist about 5 years ago. His last seizure was 18 mths ago - he had a minor episode. He fell backwards , says he was conscious but had shaking. He does not drive Previous AED trials- Keppra- caused mood changes. Depakote- initially caused fatigue, but eventually tolerated well- states was only stopped d/t was not seeing previous neurologist. [facility] Medical History New onset type 2 diabetes mellitus Depression COVID-19 Anxiety HTN (hypertension) Seizure Asthma Surgical History Hx of colonoscopy History of esophagogastroduodenoscopy (EGD) History of tonsillectomy History of eye surgery Family History Maternal Grandfather Prostate cancer Colon cancer Father Seizures History of heart artery stent Mother Diabetes Hypertension Other Mental health disorder Social History Housing: Apartment Alcohol intake: never Patient Tobacco Use Status: Former Tobacco user Years Smoked: 10 yrs, quit 2020 e-Cigarette/Vaping Use: Never Used Second Hand Smoke Exposure: No service: No Current occupational status: unemployed Cognitive needs: No Hearing needs: No Vision needs: Yes (glasses) Physical Exam Vital Signs: Last Vital Signs Pulse 73 03/08/24 12:42 Resp 16 03/08/24 12:42 BP 116/78 03/08/24 12:42 Pulse Ox 97 03/08/24 12:42 Oxygen Delivery Method Room Air 03/08/24 12:42 BMI result Body Mass Index 35.1 Const General: cooperative and no acute distress Orientation/consciousness: patient oriented x3 Resp Effort & Inspection: normal respiratory effort and able to speak in complete sentences Neuro Other: Mild palpable tenderness at right lateral occipital region, mild right upper ANDRE region, left upper RENNY region. Bilateral posterior cervical tightness. Cervical ROM: full Left Spurling: normal Right Spurling: normal. General: patient oriented x3 and deep tendon reflexes 2+ bilaterally Cranial nerves: Yes CN's II-XII intact bilaterally Cognition (Neuro): normal cognition Psych Appearance: grossly normal Mental Status: mental status grossly normal Speech and movement: Normal speech and movement present Affect: normal affect Attitude: cooperative Assessment & Plan Assessment & Plan (1) Seizure: Code(s): R56.9 - Unspecified convulsions Category: Medical (2) Headache: Comment: ? ON, ? cervicogenic- triggered by convulsive episode Code(s): R51.9 - Headache, unspecified Category: Medical Plan Discussed that the recent convulsive episode was liekly seizure. Pt advised to resume Depakoet ER 250mg po bid. CBC, CMP after starting Depakote. For headache: Trial Magnesium 400mg qhs. Offered XR c-spine, PT- pt declines at this time. Future considerations- X-ray, PT, ON block. Orders: Orders Complete Blood Count Auto Diff Today R56.9 - Unspecified convulsions Medications: New magnesium oxide may hold for loose stools 400 mg PO BEDTIME 30 days 30 tabs 6RF divalproex ER (Depakote ER) 250 mg PO BID 30 days 60 tabs 6RF Coding Level of Care Code Est Pt Level 4 (08494) Diagnoses Seizure R56.9 Headache R51.9
[2024-03-08 12:42] VITALS: BP 116/78; PULSE 73; RESP 16; O2SAT 97; BMI 35.1
== END 2024-03-08 13:16 | disposition home or self-care (01) ==
PROVIDERS: PCP Nurse Practitioner Family; Visit Provider Nurse Practitioner Family
DX: R56.9 Unspecified convulsions (principal); R51.9 Headache, unspecified
CPT/HCPCS: 99214

== ENCOUNTER → 2024-03-08 12:21 | Outpatient (BNVA) | payer OTHER, SELFPAY | PROVIDERS: PCP Nurse Practitioner Family; Visit Provider Nurse Practitioner Family | DX: R56.9 Unspecified convulsions (principal); R51.9 Headache, unspecified | CPT/HCPCS: 99212 ==

== ENCOUNTER 2024-03-23 07:41 | Outpatient (REF) | payer OTHER, SELFPAY ==
[2024-03-23 07:50] LABS: MANUAL DIFF FLAG NO
[2024-03-23 07:59] LABS: Basophils Absolute Auto 0.1 X10*3/uL (0.0-0.2); Basophils Percent Auto 0.8 % (0-2); Eosinophils Absolute Auto 0.1 X10*3/uL (0.0-0.4); Eosinophils Percent Auto 2.1 % (0-4); Hematocrit 45.9 % (42.0-52.0); Hemoglobin 15.2 g/dl (14.0-18.0); Imm Gran Abs Auto 0.02 X10*3/uL (0.00-0.03); Imm Gran Pct Auto 0.3 % (0.0-0.4); Lymphocytes Absolute Auto 1.8 X10*3/uL (1.2-4.9); Lymphocytes Percent Auto 27.7 % (20-40); Mean Corpuscular HGB Conc 33.1 g/dl (31.0-36.0); Mean Corpuscular Hemoglobin 27.1 pg (27.0-33.0); Mean Platelet Volume 9.4 fL (9.4-12.4); Monocytes Absolute Auto 0.6 X10*3/uL (0.1-1.2); Monocytes Percent Auto 8.6 % (2-11); Neutrophils Percent Auto 60.5 % (45-73); Platelet Count 289 X10*3/uL (160-400); Red Cell Distribution Width 12.8 % (11.0-16.0); White Blood Count 6.6 X10*3/uL (4.8-10.8)
[2024-03-23 08:36] LABS: Alanine Aminotransferase 29 U/L (0-40); Albumin Level 4.4 g/dL (3.5-5.0); Alkaline Phosphatase 85 U/L (39-117); Anion Gap 13 (12-20); Aspartate Amino Transferase 20 U/L (5-37); Bilirubin Total 0.3 mg/dL (0.0-1.0); Blood Urea Nitrogen 15 mg/dL (9-16); Calcium 9.3 mg/dL (8.4-10.2); Carbon Dioxide 28 mmol/L (22-29); Chloride 105 mmol/L (96-108); Cholesterol 187 mg/dL (<200); Estimated Glomerular Filt Rate > 60; Glucose Random 119 mg/dL (60-115); HDL Cholesterol 41 mg/dL (>40); LDL Cholesterol Calculated 116 mg/dL (<100); Potassium 4.8 mmol/L (3.3-5.1); Sodium 141 mmol/L (135-145); Total Protein 7.6 g/dL (6.5-8.0); Triglycerides 151 mg/dL (<150)
== END 2024-03-23 07:42 | disposition home or self-care (01) ==
LOC: HO.LAB 07:41
PROVIDERS: Nurse Practitioner Family; PCP Internal Medicine
DX: Z00.00 Encounter for general adult medical examination without abnormal findings (principal); R56.9 Unspecified convulsions
CPT/HCPCS: 36415; 80053; 80061; 85025

== ENCOUNTER 2024-03-24 09:14 | Outpatient (AMB) | payer OTHER, SELFPAY ==
--- NOTE | 2024-03-24 09:41 | A.OFFPC_ITS ---
Vital Signs 03/24/24 09:43 Height 5 ft 8 in Weight 230 lb 4 oz BMI 35.0 BP 130/80 Blood Pressure Location Rt brachial Position Sitting Pulse 86 Pulse Source Pulse Oximeter Pulse Oximetry (%) 97 Oxygen Delivery Method Room Air Intake Visit Reasons: 3 month f/u Intake Note: Patient is here to follow up on DM, HTN, Asthma, Seizure. Complaint of cramping and constipation. OTC has not help with constipation. 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 He is compliant with medications and reporting no side effects. Able to function and able to do all activities of daily living. Mental health is stable. Recently Depakote and magnesium were added to his regimen. Patient is feeling constipated. Not much relief with the laxatives he is currently used. He has had good relief with Citrucel in the past. [facility] Medical History (Updated 03/24/24 @ 10:25 by Jorge Chowdhury MD) Class 2 severe obesity with body mass index (BMI) of 35 to 39.9 with serious comorbidity New onset type 2 diabetes mellitus Depression COVID-19 Anxiety HTN (hypertension) Seizure Asthma Surgical History (Updated 03/24/24 @ 10:21 by Jorge Chowdhury MD) Hx of colonoscopy (~04/29/23) History of esophagogastroduodenoscopy (EGD) History of tonsillectomy History of eye surgery Family History Maternal Grandfather Prostate cancer Colon cancer Father Seizures History of heart artery stent Mother Diabetes Hypertension Other Mental health disorder Social History Housing: Apartment Alcohol intake: never Patient Tobacco Use Status: Former Tobacco user Years Smoked: 10 yrs, quit 2020 e-Cigarette/Vaping Use: Never Used Second Hand Smoke Exposure: No service: No Current occupational status: unemployed Cognitive needs: No Hearing needs: No Vision needs: Yes (glasses) Questionnaire Thrive Questionnaire Date Thrive assessed: 08/04/23 MOOK-7 AMB Questionnaire MOOK-7 Date MOOK - 7 assessed: 08/04/23 Source: Developed by Drs. Zac Cao, Caprice Mccord, Max Fletcher and colleagues, with an educational timbo from [employer]. Physical exam (Primary Care) Vital Signs: Last Vital Signs Pulse 86 03/24/24 09:43 BP 130/80 03/24/24 09:43 Pulse Ox 97 03/24/24 09:43 Oxygen Delivery Method Room Air 03/24/24 09:43 Care Plan Goal for BP management: Blood pressure is in range. BMI result Body Mass Index 35.0 BMI Assessment/Plan discussion: High (1 lb per week weight loss suggested.) BMI High, discussed plan: lifestyle, weight reduction, dietary and physical activity Tobacco/Smoking Status: Tobacco use Status Tobacco use date assessed 03/24/24 03/24/24 09:47 Patient Tobacco Use Status Former Tobacco user 03/24/24 09:47 e-Cigarette/Vaping Use Never Used 03/24/24 09:47 Thrive Assessment: Date of Thrive Assessment Date Thrive assessed 08/04/23 03/24/24 09:47 Const General: cooperative and healthy appearing Nutritional Appearance: well nourished Orientation/consciousness: patient oriented x3 Limitations: no limitations HENMT Head: Yes normal to inspection Eyes General: appearance normal, both eyes and all related structures Neck Neck: Yes normal visual inspection Chest Chest palpation & inspection: normal palpation of entire chest wall Resp Effort & Inspection: normal respiratory effort Neuro General: patient oriented x3 Assessment and Plan Assessment & Plan (1) Depression: Code(s): F32.A - Depression, unspecified Qualifiers: Depression Type: other depression Qualified Code(s): F32.89 - Other specified depressive episodes Plan: Patient has a psychiatrist. Depakote and magnesium have been added to the regimen. (2) New onset type 2 diabetes mellitus: Code(s): E11.9 - Type 2 diabetes mellitus without complications Plan: A1c is stabilizing. Continue medications at same dosage. (3) Constipation: Code(s): K59.00 - Constipation, unspecified Plan: [place] so prescription written. Patient has had colonoscopy and an endoscopy. (4) Class 2 severe obesity with body mass index (BMI) of 35 to 39.9 with serious comorbidity: Code(s): E66.01 - Morbid (severe) obesity due to excess calories Plan: Counseling on the importance of diet and exercise done. Medications: Refilled methylcellulose (laxative) (Citrucel) 500 mg PO BID 60 tabs 5RF Coding Level of Care Code Est Pt Level 4 (68647) Complex EM visit Add On G2211 Diagnoses Other depression F32.89 Depression Type: other depression New onset type 2 diabetes mellitus E11.9 Constipation K59.00 Class 2 severe obesity with body mass index (BMI) of 35 to 39.9 with serious comorbidity E66.01
[2024-03-24 09:43] VITALS: BP 130/80; PULSE 86; O2SAT 97; BMI 35.0
== END 2024-03-24 10:24 | disposition home or self-care (01) ==
PROVIDERS: PCP Internal Medicine; Visit Provider Internal Medicine
DX: E11.9 Type 2 diabetes mellitus without complications (principal); F32.89 Other specified depressive episodes; K59.00 Constipation, unspecified
CPT/HCPCS: 99214; G2211

== ENCOUNTER → 2024-03-25 10:49 | Outpatient (REF) | payer OTHER, SELFPAY ==
--- NOTE | 2024-03-25 10:51 | CA_ITS ---
Acquisition Time: 2024-03-25 10:52:54 Total Exercise Time: 00:10:58 Test Indications: ABN.STRESS TEST Medications: Protocol: MANOJ Max HR: 179 BPM 102% of Pred: 175 BPM Max BP: 156/088 mmHG Max Work Load: 13.3 METS Exercise stress test exercise 10 min 58 sec of Manoj protocol achieving 102% MPHR, with mild SOB, no chest discomfort, with isolated PACs and PVCs ventricular trigeminy, with normotensive response to exercise, without EKG changes. Nuclear images pending. Test reviewed with Dr. Nevarez. Echo images reviewed at rest and post stress: At rest: no RWMA and normal LVEF. Post stress: No exercise induced RWMA. LVEF augmented appropriately. Diastology: No obvious evidence of diastolic dysfunciton. Conclusion: Normal stress echo at achieved workload. Referred By: Juli Abebe Overread By: Tramaine Nevarez
== END ==
LOC: HO.CARD 10:49
PROVIDERS: PCP Internal Medicine
DX: R94.39 Abnormal result of other cardiovascular function study (principal)
CPT/HCPCS: 93350; Q9957

== ENCOUNTER → 2024-03-25 10:51 | Outpatient (BNV) | payer OTHER, SELFPAY | PROVIDERS: PCP Internal Medicine; Visit Provider Internal Medicine Cardiovascular Disease | DX: I49.1 Atrial premature depolarization (principal); I49.3 Ventricular premature depolarization; R06.02 Shortness of breath | CPT/HCPCS: 93351; 93352 ==

== ENCOUNTER 2024-04-11 07:37 | Outpatient (AMB) | payer OTHER, SELFPAY ==
--- NOTE | 2024-04-11 08:50 | MHC.OFFVIS ---
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: No Accompanied by: Self / Same As Patient Allergies aspirin [ASPIRIN] Allergy (Unknown, Verified 03/24/24 09:43) ITCHY, itchy/HIVES Medication List - Last Reconciled 04/11/24 by Hollis Tate MD albuterol sulfate 90 mcg/actuation (Ventolin HFA) 2 puffs inhalation Q4-6H PRN atorvastatin 10 mg PO BEDTIME blood sugar diagnostic ([employer] Ultra Test strips) As directed twice per day blood-glucose meter ([employer] Ultra2 Meter) As directed twice per day buspirone 0 mg PO DAILY cholecalciferol (vitamin D3) 25 mcg PO DAILY clonazepam 0.5 mg PO BID PRN clonidine HCl 0.1 mg PO BEDTIME divalproex ER (Depakote ER) 250 mg PO BID 30 days dulaglutide (Trulicity) 0.75 mg (0.5 mL) subcut QWEEK lancets (ShelfariTouch Delica Plus Lancet) As directed twice per day lisinopril 5 mg PO DAILY magnesium oxide 400 mg PO BEDTIME 30 days metformin ER 500 mg PO BID methylcellulose (laxative) (Citrucel) 500 mg PO BID pantoprazole 20 mg PO DAILY sertraline 200 mg PO BEDTIME HPI Comments Details: Erick was referred here for atypical chest pain for which she underwent a stress test. At that time he was having issues with blurry vision and was diagnose with diabetes as well as having elevated blood pressure and headaches. Subsequently underwent a treadmill stress test very walked for almost 10 minutes and developed some chest pain along with elevated blood pressure response with EKG changes suggestive of ischemia. Subsequently was scheduled for a stress echocardiogram which she underwent more recently which was negative for myocardial ischemia by imaging. Patient since then has had good blood pressure control and has had made significant changes lifestyle modification has lost about 30 lb. He said he is trying aggressively. His blood pressure is under better control. His diabetes still not under good control. He is trying to work hard added. His last triglycerides and LDL was elevated. He is currently taking all his medications reliably. Denies any prolonged palpitation irregular heartbeat. Denies any heart failure symptoms. [facility] Medical History Abnormal stress ECG Class 2 severe obesity with body mass index (BMI) of 35 to 39.9 with serious comorbidity New onset type 2 diabetes mellitus Depression COVID-19 Anxiety HTN (hypertension) Seizure Asthma Surgical History Hx of colonoscopy (~04/29/23) History of esophagogastroduodenoscopy (EGD) History of tonsillectomy History of eye surgery Family History Maternal Grandfather Prostate cancer Colon cancer Father Seizures History of heart artery stent Mother Diabetes Hypertension Other Mental health disorder Social History Housing: Apartment Alcohol intake: never Patient Tobacco Use Status: Former Tobacco user Years Smoked: 10 yrs, quit 2020 e-Cigarette/Vaping Use: Never Used Second Hand Smoke Exposure: No service: No Current occupational status: unemployed Cognitive needs: No Hearing needs: No Vision needs: Yes (glasses) Review of Systems Const Denies chills, Denies fatigue, Denies fever(s), Denies frequent falls, Denies weakness, Denies weight gain and Denies weight loss ENT Denies dizziness Card Denies chest pain, Denies leg edema, Denies lightheadedness, Denies palpitations, Denies dyspnea, Denies dyspnea on exertion and Denies orthopnea Resp Denies cough, Denies dyspnea and Denies dyspnea on exertion GI Denies bloating and Denies change in bowel habits Musc Denies muscle weakness, Denies numbness and Denies tingling Neuro Denies dizziness, Denies frequent falls, Denies numbness, Denies tingling and Denies weakness Endo Denies fatigue and Denies palpitations Physical Exam Vital Signs: Last Vital Signs Pulse 67 04/11/24 08:52 BP 130/90 H 04/11/24 08:52 BMI result Body Mass Index 35.7 Const General: cooperative, comfortable, no acute distress, alert, awake and Physically active Nutritional Appearance: obese Orientation/consciousness: patient oriented x3 Limitations: no limitations HEENT Head: Yes normocephalic and Yes atraumatic Neck Neck: Yes trachea midline, Yes supple and Yes no JVD Resp Effort & Inspection: normal respiratory effort Auscultation: clear to auscultation bilaterally Cardio Jugular venous distension: no JVD Palpation: normal PMI Rate: regular rate Rhythm: regular rhythm Heart sounds: S1 normal heart sound present, S2 normal heart sound present, no click, no gallops, no murmurs and no rubs GI Auscultation: normal bowel sounds Skin General skin exam: no rashes or lesions noted Neuro General: patient oriented x3 and no focal motor deficits Extrem General: Yes no clubbing, cyanosis or edema Psych Appearance: grossly normal Office Procedures EKG Details: EKG shows normal sinus rhythm with rightward axis with T-wave and ST changes inferior and V5 and V6 suggestive of repolarization abnormality [id number], Complete Assessment & Plan Assessment & Plan (1) Chest discomfort: Code(s): R07.89 - Other chest pain Category: Medical Plan: Patient was atypical chest discomfort in the setting of uncontrolled blood pressure and since then had a stress test with a regular treadmill stress test being abnormal with EKG changes most likely due to hypertensive blood pressure response and subendocardial ischemia. Subsequent stress echocardiogram is negative suggestive of no obstructive coronary artery disease. Again most likely chest pain syndrome related to uncontrolled blood pressure and this has now resolved with control of blood pressure. He is very motivated in modifying his risk factors. He has aggressively participate in lifestyle modification has lost some weight. I have advised and encouraged him to continue to participate in the same. Continue aggressive control of diabetes goal hemoglobin A1c less than 7% may benefit from continuous glucose monitoring. Blood pressure is currently well optimized importance of compliance with medication was discussed. Continue aggressive cholesterol modification. Not that he has significantly lifestyle modified would repeat his triglycerides as well as fasting LDL to see if he has significant response otherwise may need treatment and uptitration statin therapy in consideration to adding Vascepa. (2) Abnormal EKG: Code(s): R94.31 - Abnormal electrocardiogram [ECG] [EKG] Category: Medical Plan: Abnormal EKGs most suggestive of repolarization abnormality either related to hypertensive heart disease related to hypertension/diabetic cardiomyopathy. Recommend echocardiogram to assess for LVH and/or other abnormalities that may cause the EKG. No further treatment except for aggressively controlling blood pressures about and diabetes as above. Will follow up in the clinic if need be. Thank you for allowing me to partake in his care Orders: Orders CA echo transthoracic complete Today R94.31 - Abnormal electrocardiogram [ECG] [EKG] Coding Level of Care Code New Pt Level 4 (10793) Diagnoses Chest discomfort R07.89 Abnormal EKG R94.31 CPT Codes EKG - CPT: 51417-[id number], Complete ([id number])
[2024-04-11 08:52] VITALS: BP 130/90; PULSE 67; BMI 35.7
== END 2024-04-11 11:01 | disposition home or self-care (01) ==
PROVIDERS: PCP Internal Medicine; Visit Provider Internal Medicine Cardiovascular Disease
DX: R07.89 Other chest pain (principal); R94.31 Abnormal electrocardiogram [ECG] [EKG]
CPT/HCPCS: 93010; 99204

== ENCOUNTER → 2024-04-11 07:37 | Outpatient (BNVA) | payer OTHER, SELFPAY | PROVIDERS: PCP Internal Medicine; Visit Provider Internal Medicine Cardiovascular Disease | DX: R07.89 Other chest pain (principal); R94.31 Abnormal electrocardiogram [ECG] [EKG] | CPT/HCPCS: 93005; 99202 ==

== ENCOUNTER → 2024-05-04 10:42 | Outpatient (REF) | payer OTHER, SELFPAY ==
--- NOTE | 2024-05-04 10:45 | CA_ITS ---
Transthoracic Echocardiogram Patient (Last, First, Middle): Erick Cortez, Gender: Male Date of : 1980 Age: 43 Procedure Date: 05/04/2024 Procedure Type: Transthoracic Echocardiogram Location: OP Height: 172.72 cm Weight: 106.6 kg BSA: 2.19 m2 Heart Rate: 70 bpm BP: 130 / 84 mmHg Ross Carrier Driver: KOJO Referring MD: Hollis Tate MD Symptoms: R94.31 - Abnormal electrocardiogram [ECG] [EKG] Study Quality: Adequate ECG Rhythm: Sinus Conclusions: - The left ventricular systolic function is hyperdynamic. The calculated ejection fraction is 71% by biplane method. - No obvious valvular pathology seen on this study. Findings Procedure Information Contrast agent, definity, is being given per protocol without apparent complications. Left Ventricle Normal left ventricular cavity size. The left ventricular systolic function is hyperdynamic. The calculated ejection fraction is 71% by biplane method. There is no evidence of regional wall motion abnormalities. Diastolic function is normal for age. There is mild septal asymmetric hypertrophy. Right Ventricle Mildly increased right ventricular cavity size. There is mildly decreased right ventricular systolic function. Atria Both atria are normal in size. Aortic Valve There is a normal trileaflet aortic valve. There is no aortic valve stenosis. There is no aortic valve regurgitation. Mitral Valve The mitral valve appears normal. There is trace mitral valve regurgitation. There is no mitral valve stenosis. Pulmonic Valve The pulmonic valve is likely normal. Tricuspid Valve There is trace tricuspid valve regurgitation. There is no evidence of pulmonary hypertension. Great Vessels The aortic arch is normal in size. Small plaque is seen in the sino tubular ridge. Venous The inferior vena cava is normal in size and collapses greater than 50% with inspiration. Pericardium/Pleural Widened pericardial space over the right atrium, probably fat. Less likely effusion. Prior Study Comparison No prior study available for comparison. Recommendations, Care & Conclusions No obvious valvular pathology seen on this study. Measurements 2D Linear Measurements IVSd: 1.26 0.6-0.9/0.6-1.0 cm LVIDd: 5.20 3.9-5.3/4.2-5.9 cm LVIDd Index: 2.37 2.4-3.2/2.2-3.1 cm/m2 LVIDs: 3.45 2.0-3.6 cm LVPWd: 0.85 0.7-1.1 cm LA Diam: 3.10 2.7-3.8/3.0-4.0 cm LAIDs Index: 1.42 1.5-2.3 cm/m2 LV Mass: 259.34 67-162/88-224 g LV Mass Index: 118.42 43-95/49-115 g/m2 LVOT Diam: 2.20 3.0+(-)1.3 cm 2D Systolic Function EF 4C: 68.70 >55% EF 2C: 72.00 >55% EF BiP: 71.00 >55% Mitral Valve MV Pk E: 0.81 MV PK A: 0.58 MV Decel Time: 223.00 E/A: 1.40 E'Lateral: 8.70 E'Medial: 7.83 E/E' Med: 10.30 E/E' Lat: 9.30 PHT: 65.00 MVA PHT: 3.38 Decel Hays: 3.63 Aortic Valve AoV Pk Nik: 1.15 AoV Pk Grad: 5.00 DANILO: 3.74 LVOT LVOT Pk Nik: 1.17 LVOT Mn Nik: 0.88 LVOT VTI: 0.24 LVOT Pk Grad: 5.00 LVOT Mn Grad: 3.00 LVOT Diam: 2.20 LVOT Area: 3.80 Diastolic Function MV Pk E: 0.81 MV Pk A: 0.58 E/A: 1.40 E'Medial: 7.83 E/E' Med: 10.30 E' Laterial: 8.70 E/E' Lat: 9.30 Right Ventricle TAPSE (mm): 16.50 TVS' Nik: 9.57 Tricuspid Valve RA Press: 3.00 Great Vessels Aorta Sinus of Valsalva: 3.90 2.0-3.5 cm Ao Asc: 3.30 2.1-3.4 cm Ao Arch: 2.90 Pulmonary Veins Pulm Vein S/D 1.40 Pulmonary Valve PV Pk Nik: 0.83 Peak PV Grad: 3.00 Updated in Other Vendor System with Status of Final Murray Mckeon MD electronically signed on 05/05/2024 4:02:36 PM with status of Final
== END ==
LOC: HO.CARD 10:42
PROVIDERS: PCP Internal Medicine; Visit Provider Internal Medicine
DX: R94.31 Abnormal electrocardiogram [ECG] [EKG] (principal)
CPT/HCPCS: 93306; Q9957

== ENCOUNTER → 2024-05-04 10:45 | Outpatient (BNV) | payer OTHER, SELFPAY | PROVIDERS: PCP Internal Medicine; Visit Provider Internal Medicine | DX: I42.2 Other hypertrophic cardiomyopathy (principal) | CPT/HCPCS: 93306 ==

== ENCOUNTER 2024-09-15 12:45 | Outpatient (AMB) | payer OTHER, SELFPAY ==
--- NOTE | 2024-09-15 12:57 | A.OFFVIS_ITS ---
Vital Signs 09/15/24 12:58 Height 5 ft 8 in Weight 230 lb BMI 35.0 BP 130/90 H Blood Pressure Location Rt brachial Position Sitting Pulse 91 Pulse Source Pulse Oximeter Pulse Oximetry (%) 96 Oxygen Delivery Method Room Air Intake Visit Reasons: Follow Up Intake Note: Patient presents follow up Seizure/Sleep medication. 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 Required: No Accompanied by: Self / Same As Patient Allergies aspirin [ASPIRIN] Allergy (Unknown, Verified 09/15/24 13:00) ITCHY, itchy/HIVES Medication List - Last Reconciled 09/15/24 by LUCY Aguilera albuterol sulfate 90 mcg/actuation (Ventolin HFA) 2 puffs inhalation Q4-6H PRN atorvastatin 10 mg PO BEDTIME blood sugar diagnostic ([employer] Ultra Test strips) As directed twice per day blood-glucose meter ([employer] Ultra2 Meter) As directed twice per day buspirone 0 mg PO DAILY cholecalciferol (vitamin D3) 25 mcg PO DAILY clonazepam 0.5 mg PO BID PRN clonidine HCl 0.1 mg PO BEDTIME divalproex ER (Depakote ER) 250 mg PO BID 30 days dulaglutide (Trulicity) 0.75 mg (0.5 mL) subcut QWEEK lancets ([employer] Delica Plus Lancet) As directed twice per day lisinopril 5 mg PO DAILY magnesium oxide 400 mg PO BEDTIME 30 days metformin ER 500 mg PO BID methylcellulose (laxative) (Citrucel) 500 mg PO BID pantoprazole 20 mg PO DAILY sertraline 200 mg PO BEDTIME HPI Comments Details: 43-yr-old male presents for f/u visit for seizure and headache. - Neurological: Reports no recent seizures. Denies dizziness or weakness. - Respiratory: Denies difficulty breathing but reports bothersome snoring. - Cardiovascular: Denies chest pain. - Metabolic: Reports controlled blood sugars with dietary adjustments. - Musculoskeletal: Reports restless legs and occasional leg cramps. - General: Reports difficulty sleeping, daytime tiredness, can easily doze off when inactive. - Gastrointestinal: Denies abdominal pain. - Lifestyle: Reports compliance with diet, including reduced rice intake and increased vegetables. 03/08/2024 HPI: Pt reports he recently had one episode where he woke up around 5am, he was shaking, he could not get up, he felt stuck, vision was blurry, he started yelling. Afterwards, he had a massive headache , neck tightness, muscular leg pain, jaw pain. He could not stand up right away. He did not have tongue biting/incontinence. He does not recall any triggers, stress, alcohol/drug use- does not use these. He thought made it was a nightmare- has a h/o nightmares- but not like this before. He describes the massive headache, as a pinching nerve pain from right neck up i nto his right upper occipital region as well as left upper cervical to occipital region tingling, which has reoccurred twice again (not a/w shaking/LOC). He is trying to eat better. He does ride a bike on a [place] or in the [place] w/ a helmet- and always accompanied by his [id number]. He is NOT driving. He has safety alerts on him. Presenting HPI: He started having seizures in ~ . The first seizure was when he was shopping with his . He suddenly felt nauseous, dizzy, confused,blurry vision and had a witnessed clonic tonic seizures with tongue biting , urinary incontinence . He woke up in ER , he had headache and was very tired , confused. He started having 1-2 seizures a week for 1 year. He was seeing Dr. Callejas. He had 1 episode when he was driving. He lost his license and job.He says after his first year his seizures became milder and less frequent. He stopped taking depakote and seeing his neurologist about 5 years ago. His last seizure was 18 mths ago - he had a minor episode. He fell backwards , says he was conscious but had shaking. He does not drive Previous AED trials- Keppra- caused mood changes. Depakote- initially caused fatigue, but eventually tolerated well- states was only stopped d/t was not seeing previous neurologist. [facility] Medical History Abnormal stress ECG Class 2 severe obesity with body mass index (BMI) of 35 to 39.9 with serious comorbidity New onset type 2 diabetes mellitus Depression COVID-19 Anxiety HTN (hypertension) Seizure Asthma Surgical History Hx of colonoscopy (~04/29/23) History of esophagogastroduodenoscopy (EGD) History of tonsillectomy History of eye surgery Family History Maternal Grandfather Prostate cancer Colon cancer Father Seizures History of heart artery stent Mother Diabetes Hypertension Other Mental health disorder Social History Housing: Apartment Alcohol intake: never Patient Tobacco Use Status: Former Tobacco user Years Smoked: 10 yrs, quit 2020 e-Cigarette/Vaping Use: Never Used Second Hand Smoke Exposure: No service: No Current occupational status: unemployed Cognitive needs: No Hearing needs: No Vision needs: Yes (glasses) Physical Exam Vital Signs: Last Vital Signs Pulse 91 09/15/24 12:58 BP 130/90 H 09/15/24 12:58 Pulse Ox 96 09/15/24 12:58 Oxygen Delivery Method Room Air 09/15/24 12:58 BMI result Body Mass Index 35.0 Const General: cooperative and no acute distress Orientation/consciousness: patient oriented x3 Resp Effort & Inspection: normal respiratory effort and able to speak in complete sentences Neuro General: patient oriented x3 Cranial nerves: Yes CN's II-XII intact bilaterally Cognition (Neuro): normal cognition Psych Appearance: grossly normal Mental Status: mental status grossly normal Speech and movement: Normal speech and movement present Affect: normal affect Attitude: cooperative Assessment & Plan Assessment & Plan (1) Seizure: Code(s): R56.9 - Unspecified convulsions Category: Medical (2) Snoring: Code(s): R06.83 - Snoring Category: Medical (3) Sleep difficulties: Code(s): G47.9 - Sleep disorder, unspecified Category: Medical (4) Excessive daytime sleepiness: Code(s): G47.19 - Other hypersomnia Category: Medical Plan During the visit, we discussed the current management of the patient's seizure disorder, confirming effective control with Depakote and the absence of recent seizure events. We reviewed the relationship between headaches and blood sugar levels, leading to dietary recommendations. Obstructive sleep apnea was addressed, suggesting a repeat home sleep study to reassess treatment adequacy and explore underlying causes of persistent fatigue. I emphasized the importance of continued adherence to cardiovascular medication and lifestyle adjustments, acknowledging the positive impact on hypertension and hyperlipidemia. We outlined the necessity of blood work to examine potential deficiencies and the role of his primary physician in further care continuity. I advised on the risks of seizure recurrence and precautions, specifically regarding activities like biking, highlighting the importance of safety measures. The patient was consented for our follow-up plan and agreed to return in six months unless follow-up is warranted by changes in his symptoms or condition. Patient was informed and verbally consented to the use of an ambient scribe for clinic note documentation during this visit. Patient Instructions - Continue taking Depakote 250 mg twice daily as prescribed. - Anticipate a home sleep study for obstructive sleep apnea assessment. - Attend your primary care follow-up appointment next week. - Ensure safety during physical activities; avoid biking alone. - patient does not drive a motor vehicle. - Seek care if seizures recur, or if new symptoms arise. - Follow through with ordered blood tests and adhere to dietary adjustments. - Call us if you have any questions or concerns about your treatment or symptoms. Orders: Orders Ferritin 09/15/24 A04.8 - Other specified bacterial intestinal infections, E11.9 - Type 2 diabetes mellitus without complications, F41.9 - Anxiety disorder, unspecified, R51.9 - Headache, unspecified, R79.89 - Other specified abnormal findings of blood chemistry TSH reflex Free T4 09/15/24 A04.8 - Other specified bacterial intestinal infections, E11.9 - Type 2 diabetes mellitus without complications, F41.9 - Anxiety disorder, unspecified, R51.9 - Headache, unspecified, R79.89 - Other specified abnormal findings of blood chemistry Complete Blood Count Auto Diff 09/15/24 A04.8 - Other specified bacterial intestinal infections, E11.9 - Type 2 diabetes mellitus without complications, F41.9 - Anxiety disorder, unspecified, R51.9 - Headache, unspecified, R79.89 - Other specified abnormal findings of blood chemistry Comprehensive Met. Panel 09/15/24 A04.8 - Other specified bacterial intestinal infections, E11.9 - Type 2 diabetes mellitus without complications, F41.9 - Anxiety disorder, unspecified, R51.9 - Headache, unspecified, R79.89 - Other specified abnormal findings of blood chemistry RT home sleep study 09/15/24 G47.19 - Other hypersomnia, G47.9 - Sleep disorder, unspecified, R06.83 - Snoring IRON PROFILE 09/15/24 A04.8 - Other specified bacterial intestinal infections, E11.9 - Type 2 diabetes mellitus without complications, F41.9 - Anxiety disorder, unspecified, R51.9 - Headache, unspecified, R79.89 - Other specified abnormal findings of blood chemistry Vitamin B12 and Folate 09/15/24 A04.8 - Other specified bacterial intestinal infections, E11.9 - Type 2 diabetes mellitus without complications, F41.9 - Anxiety disorder, unspecified, R51.9 - Headache, unspecified, R79.89 - Other specified abnormal findings of blood chemistry Vitamin D 25-OH (D2 and D3) 09/15/24 A04.8 - Other specified bacterial intestinal infections, E11.9 - Type 2 diabetes mellitus without complications, F41.9 - Anxiety disorder, unspecified, R51.9 - Headache, unspecified, R79.89 - Other specified abnormal findings of blood chemistry Valproate 09/15/24 R56.9 - Unspecified convulsions Coding Level of Care Code Est Pt Level 4 (13670) Diagnoses Seizure R56.9 Snoring R06.83 Sleep difficulties G47.9 Excessive daytime sleepiness G47.19 [place] Sleepiness Scale Questions Sitting and reading: moderate chance of dozing Watching TV: moderate chance of dozing Sitting inactive in a theater, movie etc.: moderate chance of dozing As a passenger in a car for an hour without break: moderate chance of dozing Lying down in the afternoon when circumstances permit: moderate chance of dozing Sitting and talking to someone: would never doze Sitting quietly after lunch without alcohol: moderate chance of dozing In a car, while stopped for a few minutes in the traffic: would never doze ESS < 10: normal, ESS > 12: pathologic: 12
[2024-09-15 12:58] VITALS: BP 130/90; PULSE 91; O2SAT 96; BMI 35.0
== END 2024-09-15 13:31 | disposition home or self-care (01) ==
PROVIDERS: PCP Nurse Practitioner Family; Visit Provider Nurse Practitioner Family
DX: R56.9 Unspecified convulsions (principal); R06.83 Snoring; G47.9 Sleep disorder, unspecified; G47.19 Other hypersomnia
CPT/HCPCS: 99214

== ENCOUNTER → 2024-09-15 12:45 | Outpatient (BNVA) | payer OTHER, SELFPAY | PROVIDERS: PCP Nurse Practitioner Family; Visit Provider Nurse Practitioner Family | DX: G40.909 Epilepsy, unspecified, not intractable, without status epilepticus (principal); R06.83 Snoring; G47.19 Other hypersomnia; A04.8 Other specified bacterial intestinal infections; E11.9 Type 2 diabetes mellitus without complications; F41.9 Anxiety disorder, unspecified; R51.9 Headache, unspecified; R79.89 Other specified abnormal findings of blood chemistry | CPT/HCPCS: 99212 ==

== ENCOUNTER 2024-09-29 08:29 | Outpatient (AMB) | payer OTHER, SELFPAY ==
--- NOTE | 2024-09-29 09:08 | A.OFFPC_ITS ---
Vital Signs 09/29/24 09:15 Height 5 ft 8 in Weight 224 lb 2 oz BMI 34.1 BP 120/70 Blood Pressure Location Lt brachial Position Sitting Pulse 93 Pulse Source Pulse Oximeter Temp 97.5 F Temp Source Temporal Artery Scan Pulse Oximetry (%) 97 Oxygen Delivery Method Room Air Intake Visit Reasons: 6 month follow up Intake Note: Patient is here to follow up on DM, Hypercholesterolemia, HTN. 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 per policy Accompanied by: Self / Same As Patient Allergies aspirin [ASPIRIN] Allergy (Unknown, Verified 09/29/24 09:37) ITCHY, itchy/HIVES Medication List - Last Reconciled 09/29/24 by Jorge Chowdhury MD albuterol sulfate 90 mcg/actuation (Ventolin HFA) 2 puffs inhalation Q4-6H PRN atorvastatin 10 mg PO BEDTIME blood sugar diagnostic (Oravel Ultra Test strips) As directed twice per day blood-glucose meter (Askemuch Ultra2 Meter) As directed twice per day buspirone 0 mg PO DAILY cholecalciferol (vitamin D3) 25 mcg PO DAILY clonazepam 0.5 mg PO BID PRN clonidine HCl 0.1 mg PO BEDTIME divalproex ER (Depakote ER) 250 mg PO BID 30 days dulaglutide (Trulicity) 0.75 mg (0.5 mL) subcut QWEEK lancets (Askemuch Delica Plus Lancet) As directed twice per day lisinopril 5 mg PO DAILY magnesium oxide 400 mg PO BEDTIME 30 days metformin ER 500 mg PO BID methylcellulose (laxative) (Citrucel) 500 mg PO BID pantoprazole 20 mg PO DAILY sertraline 200 mg PO BEDTIME Tobacco use date assessed: 09/29/24 Dental Screening Dental Screen Date: 09/29/24 Did you have a dental visit in the last 12 months?: No Did you have a dental problem in the last 6 months where you did not have access to dental care?: No Was dental information given to patient?: No [facility] Medical History (Updated 09/29/24 @ 09:40 by Jorge Chowdhury MD) Erectile dysfunction Abnormal stress ECG Class 2 severe obesity with body mass index (BMI) of 35 to 39.9 with serious comorbidity New onset type 2 diabetes mellitus Depression COVID-19 Anxiety HTN (hypertension) Seizure Asthma Surgical History Hx of colonoscopy (~04/29/23) History of esophagogastroduodenoscopy (EGD) History of tonsillectomy History of eye surgery Family History Maternal Grandfather Prostate cancer Colon cancer Father Seizures History of heart artery stent Mother Diabetes Hypertension Other Mental health disorder Social History Housing: Apartment Alcohol intake: never Patient Tobacco Use Status: Former Tobacco user Years Smoked: 10 yrs, quit 2020 e-Cigarette/Vaping Use: Never Used Second Hand Smoke Exposure: Yes service: No Current occupational status: unemployed Cognitive needs: No Hearing needs: No Vision needs: Yes (glasses) Questionnaire PHQ-9 Over the last 2 weeks, how often have you been bothered by any of the following problems? 1. Little interest or pleasure in doing things: several days 2. Feeling down, depressed, or hopeless: several days 3. Trouble falling or staying asleep, or sleeping too much: several days 4. Feeling tired or having little energy: not at all 5. Poor appetite or overeating: not at all 6. Feeling bad about yourself - or that you are a failure or have let yourself or your family down: several days 7. Trouble concentrating on things, such as reading the newspaper or watching television: more than half the days 8. Moving or speaking so slowly that other people could have noticed. Or the opposite - being so fidgety or restless that you have been moving around a lot more than usual: several days 9. Thoughts that you would be better off or of hurting yourself in some way: not at all Total score: 7 Depression Screening Interpretation: Positive Depression Screening Done: Yes Source: Developed by Drs. Zac Cao, Caprice Mccord, Max Fletcher and colleagues, with an educational timbo from [employer]. Thrive Questionnaire Date Thrive assessed: 09/29/24 I am a: Patient What is your living situation today?: I have a steady place to live Within the past 12 months, did the food you bought not last and you didn't have the money to get more?: Never true Within the past 12 months, did you worry whether your food would run out before you got money to buy more?: Never true Do you have trouble paying for medicines?: No Do you have trouble getting transportation to medical appointments?: No Do you have trouble paying your heating and electricity bill?: No Do you have trouble taking care of your child, family member or friend?: No Do you have trouble with day-to-day activities such as bathing, preparing meals, shopping, managing finances, etc.?: No Are you currently unemployed and looking for a job?: No Are you interested in more education?: No Please select the resources that you would like help with: None Currently or been in a relationship where the following occur: No concerns reported THRIVE Score: 0 AUDIT C Alcohol Use Questionnaire (AUDIT-C) 1. How often do you have a drink containing alcohol?: Never Total Score: 0 MOOK-7 AMB Questionnaire MOOK-7 Date MOOK - 7 assessed: 09/29/24 Feeling nervous, anxious, or on edge: 3 = Nearly every day Not being able to stop or control worryin = More than half the days Worrying too much about different things: 2 = More than half the days Trouble relaxin = More than half the days Being so restless that it is hard to sit still: 3 = Nearly every day Becoming easily annoyed or irritable: 0 = Not at all Feeling afraid as if something awful might happen: 3 = Nearly every day Total MOOK-7 score (0-4 normal; 5-9 mild; 10-14 moderate; 15-21 severe): 15 Source: Developed by Drs. Zac Cao, Caprice Mccord, Max Fletcher and colleagues, with an educational timbo from [employer]. Physical exam (Primary Care) Vital Signs: Last Vital Signs Temp 97.5 F 09/29/24 09:15 Pulse 93 09/29/24 09:15 BP 120/70 09/29/24 09:15 Pulse Ox 97 09/29/24 09:15 Oxygen Delivery Method Room Air 09/29/24 09:15 BMI result Body Mass Index 34.1 Tobacco/Smoking Status: Tobacco use Status Tobacco use date assessed 09/29/24 09/29/24 09:23 Patient Tobacco Use Status Former Tobacco user 09/29/24 09:08 e-Cigarette/Vaping Use Never Used 09/29/24 09:08 PHQ-9: PHQ-9 Score PHQ-9: Total score 7 09/29/24 09:23 Depression Screening Interpretation: Positive Thrive Assessment: Date of Thrive Assessment Date Thrive assessed 09/29/24 09/29/24 09:12 Currently or been in a relationship where the following occur: No concerns reported Results AMB Hemoglobin A1c AMB Hemoglobin A1c 6.3 % Last Edit by SOMMER Shepard on 09/29/24 09:27 Results Reviewed Results Reviewed: Laboratory Last Values Hgb A1c (Clinic) 6.3 % (4.0-6.0) H 09/29/24 09:08 Coding Level of Care Code Est Pt Level 4 (52182) Complex EM visit Add On G2211 Diagnoses Anxiety F41.9 HTN (hypertension) I10 New onset type 2 diabetes mellitus E11.9 Class 2 severe obesity with body mass index (BMI) of 35 to 39.9 with serious comorbidity E66.01 Erectile dysfunction N52.9 Assessment & Plan Assessment & Plan (1) Anxiety: Code(s): F41.9 - Anxiety disorder, unspecified Category: Medical Plan: Patient sees a psychiatrist and therapist. (2) HTN (hypertension): Code(s): I10 - Essential (primary) hypertension Category: Medical Plan: BP is stable. Continue current medications (3) New onset type 2 diabetes mellitus: Code(s): E11.9 - Type 2 diabetes mellitus without complications Category: Medical Plan: BW has been ordered. Will call with results (4) Class 2 severe obesity with body mass index (BMI) of 35 to 39.9 with serious comorbidity: Code(s): E66.01 - Morbid (severe) obesity due to excess calories Category: Medical Plan: Counselling on the importance of diet and exercise done (5) Erectile dysfunction: Code(s): N52.9 - Male erectile dysfunction, unspecified Category: Medical Plan: Patient on many medications that can cause the dysfunction. Counselling done. Plan History of Present Illness The patient is a 44-year-old male presenting with issues of sexual dysfunction and constipation. He reports consistent difficulty in achieving ejaculation during intercourse, attributing this issue in part to his current medication regimen. This difficulty has been noted every time, accompanied by exertion- related headaches. Concerns about these symptoms contributing to relational strife were highlighted. He questions if medications for his existing anxiety and diabetes play a role in his sexual dysfunction. Constipation has been a recurrent issue, not fully resolved with his current use of givp-ecd-qhekroo treatments, complicated by experiences of cramping post-insulin administration. His medication regimen includes Depakote, clonidine, buspirone, and clonazepam for anxiety; metformin for diabetes; with a noted history of omeprazole use for GERD, which is currently not being administered. Social History - Relationship status: Currently in a relationship - Psychosocial: Reports some anxiety and insecurity related to self-image and relationship - Mental Health Care: Regular sessions with a therapist and psychiatrist Review of Systems - Gastrointestinal: Reports constipation - Neurological: Denies any neurological symptoms, but notes headaches associated with sexual activity - Psychiatric: Reports anxiety, denies depression Physical Exam General: Cooperative and healthy appearing Nutritional Appearance: Well nourished Orientation/consciousness: Patient oriented x3 Limitations: No limitations Head: Normal to inspection General: Appearance normal, both eyes and all related structures Neck: Normal visual inspection Chest: Normal palpation of entire chest wall Respiratory: Normal respiratory effort Neurology: Patient oriented x3 Results Plan We will initiate treatment for constipation with Colace, administering it three times daily. The patient's ongoing difficulty with ejaculation appears related to his current medication regimen, which is pivotal for managing his anxiety and diabetes. A collective review of his medicines illustrates their psychological and metabolic necessity. For GERD, a refill of omeprazole will be provided. Blood work has been recommended for follow-up, and an offer extended to discuss the impact of medications on sexual health if the patient brings his partner next time. Previous colonoscopy records and potential plans for prostate examination were discussed. Patient was informed and verbally consented to the use of an ambient scribe for clinic note documentation during this visit. Discussion Notes During today's visit, I addressed the patient's concerns regarding sexual dysfunction and constipation, specifically focusing on potential medication side effects and management options. I affirmed the need to continue current anxiolytic and antidiabetic treatment regimens, emphasizing their significance in managing his chronic conditions. The potential contribution of these medications to his sexual dysfunction was acknowledged, underpinning the complexity in altering treatment plans. Constipation will be managed with Colace, starting three times daily. I ordered a refill for omeprazole to support GERD management. For ongoing issues or misinterpretations regarding his sexual function, I suggested the possibility of his partner accompanying him in future visits for reinforcement through medical explanation of drug side effects. Plans for routine blood work include fasting, acknowledging non-preparedness for immediate testing. Patient Instructions - Start taking Colace, three times daily, to manage constipation. - Continue current diabetes and anxiety medication regimen as prescribed. - Schedule fasting blood work; fast after dinner the evening prior to the test. - Discuss sexual function concerns with partner and consider bringing her to the next appointment. - Request refill for omeprazole and begin taking it as previously directed for GERD. - Monitor symptoms and return for a follow-up if the situation does not improve or worsens. Orders: Orders Basic Metabolic Panel Today E11.9 - Type 2 diabetes mellitus without complications, E66.01 - Morbid (severe) obesity due to excess calories, F41.9 - Anxiety disorder, unspecified, I10 - Essential (primary) hypertension Complete Blood Count no Diff Today E11.9 - Type 2 diabetes mellitus without complications, E66.01 - Morbid (severe) obesity due to excess calories, F41.9 - Anxiety disorder, unspecified, I10 - Essential (primary) hypertension Lipid Panel Today E11.9 - Type 2 diabetes mellitus without complications, E66.01 - Morbid (severe) obesity due to excess calories, F41.9 - Anxiety disorder, unspecified, I10 - Essential (primary) hypertension Hemoglobin A1c Today E11.9 - Type 2 diabetes mellitus without complications, E66.01 - Morbid (severe) obesity due to excess calories, F41.9 - Anxiety disorder, unspecified, I10 - Essential (primary) hypertension Thyroid Stimulating Hormone Today E11.9 - Type 2 diabetes mellitus without complications, E66.01 - Morbid (severe) obesity due to excess calories, F41.9 - Anxiety disorder, unspecified, I10 - Essential (primary) hypertension AMB Hemoglobin A1c Today E11.9 - Type 2 diabetes mellitus without complications Liver Panel Today E11.9 - Type 2 diabetes mellitus without complications, E66.01 - Morbid (severe) obesity due to excess calories, F41.9 - Anxiety disorder, unspecified, I10 - Essential (primary) hypertension Microalbumin, Random (w Creat) Today E11.9 - Type 2 diabetes mellitus without complications, E66.01 - Morbid (severe) obesity due to excess calories, F41.9 - Anxiety disorder, unspecified, I10 - Essential (primary) hypertension UA and rflx microscopic Today E11.9 - Type 2 diabetes mellitus without complications, E66.01 - Morbid (severe) obesity due to excess calories, F41.9 - Anxiety disorder, unspecified, I10 - Essential (primary) hypertension Medications: Refilled methylcellulose (laxative) (Citrucel) 500 mg PO BID 60 tabs 5RF
[2024-09-29 09:15] VITALS: BP 120/70; PULSE 93; TEMP 36.4; O2SAT 97; BMI 34.1
== END 2024-09-29 09:37 | disposition home or self-care (01) ==
LOC: HO.HMCH 08:29
PROVIDERS: PCP Internal Medicine; Visit Provider Internal Medicine
DX: E11.9 Type 2 diabetes mellitus without complications (principal); E66.01 Morbid (severe) obesity due to excess calories; Z68.34 Body mass index [BMI] 34.0-34.9, adult; F41.9 Anxiety disorder, unspecified; I10 Essential (primary) hypertension; N52.9 Male erectile dysfunction, unspecified

== ENCOUNTER → 2024-09-29 08:29 | Outpatient (BNVA) | payer OTHER, SELFPAY | PROVIDERS: PCP Internal Medicine; Visit Provider Internal Medicine | DX: F41.9 Anxiety disorder, unspecified (principal); E11.9 Type 2 diabetes mellitus without complications; I10 Essential (primary) hypertension; E66.01 Morbid (severe) obesity due to excess calories; N52.9 Male erectile dysfunction, unspecified | CPT/HCPCS: 83036; 99212 ==